=== PATIENT | male | born 1945 | race Caucasian/White ===

== ENCOUNTER 2020-11-27 08:34 | Day surgery (SDC) | payer MEDICARE, BC ==
[2020-11-27] MEDS ORDERED: Lactated Ringers 1,000 ML IV ONE (08:53)
[2020-11-27] MEDS ORDERED: ROBINUL ONE (09:25)
[2020-11-27] MEDS ORDERED: DIPRIVAN 200 MG/20 ML IV ONE ×3 (09:25→11:20)
[2020-11-27] MEDS ORDERED: BETADINE 5% OPHTHALMIC 30 ML OP ONE (09:30)
[2020-11-27] MEDS ORDERED: Lactated Ringers 1,000 ML IV SCH (09:30)
[2020-11-27] MEDS ORDERED: Ak-Dilate OPHTHALMIC*** 1.065 ML, Cyclogyl 1% OPHTH SOL 5 ML 1.065 ML, GATIFLOXACIN 0.5... OP ONE ×4 (09:30)
[2020-11-27] MEDS ORDERED: TETRACAINE 0.5% STERI-UNIT SOL OP ONE ×2 (09:30)
[2020-11-27] MEDS ORDERED: cefUROXime sodium 0.005 GM in Sodium Chloride Flush 30 ML*** 0.5 ML IJ SCH (09:30)
[2020-11-27] MEDS ORDERED: NON-FORMULARY ITEM OP ONE (09:30)
[2020-11-27] MEDS ORDERED: ACETAZOLAMIDE 250 MG TABLET PO ONE ×2 (10:30→13:15)
[2020-11-27] MEDS ORDERED: Zofran 4 MG/2 ML VIAL IV PRN ×2 (10:30→13:15)
[2020-11-27] MEDS ORDERED: LIDOCAINE HCL 1% 50 MG/5 ML VL PF IJ ONE (11:00)
[2020-11-27] MEDS ORDERED: Epinephrine Preservative Free 1 MG/ML INTRAOP ONE (11:00)
[2020-11-27 11:40] VITALS: BP 127/79; PULSE 95; O2SAT 96
== END 2020-11-27 11:53 | disposition home or self-care (01) ==
LOC: SDC 08:34
PROVIDERS: ATTEND Ophthalmology
DX: H25.811 Combined forms of age-related cataract, right eye (principal); I10 Essential (primary) hypertension; E78.00 Pure hypercholesterolemia, unspecified; Z79.899 Other long term (current) drug therapy
CPT/HCPCS: 66982; 99100; C1780; J0171; J2001; J2704; A9270-GY

== ENCOUNTER 2021-01-01 06:51 | Day surgery (SDC) | payer MEDICARE, BC ==
[~2021-01-01 06:51] MED LIST: Lactated Ringers 1,000 ML IV ONE
[2021-01-01] MEDS ORDERED: NON-FORMULARY ITEM OP ONE (07:00)
[2021-01-01] MEDS ORDERED: BETADINE 5% OPHTHALMIC 30 ML OP ONE (07:00)
[2021-01-01] MEDS ORDERED: Lactated Ringers 1,000 ML IV SCH (07:00)
[2021-01-01] MEDS ORDERED: Ak-Dilate OPHTHALMIC*** 1.065 ML, Cyclogyl 1% OPHTH SOL 5 ML 1.065 ML, GATIFLOXACIN 0.5... OP ONE ×4 (07:00)
[2021-01-01] MEDS ORDERED: TETRACAINE 0.5% STERI-UNIT SOL OP ONE ×2 (07:00)
[2021-01-01] MEDS ORDERED: cefUROXime sodium 0.005 GM in Sodium Chloride Flush 30 ML*** 0.5 ML IJ SCH (07:00)
[2021-01-01] MEDS ORDERED: Zofran 4 MG/2 ML VIAL IV PRN (09:00)
[2021-01-01] MEDS ORDERED: ACETAZOLAMIDE 250 MG TABLET PO ONE (09:00)
[2021-01-01] MEDS ORDERED: DIPRIVAN 200 MG/20 ML IV ONE ×2 (09:03→09:32)
[2021-01-01] MEDS ORDERED: Epinephrine Preservative Free 1 MG/ML INTRAOP ONE (10:00)
[2021-01-01] MEDS ORDERED: LIDOCAINE HCL 1% 50 MG/5 ML VL PF IJ ONE (10:00)
[2021-01-01 10:34] VITALS: O2SAT 95
[2021-01-01 10:36] VITALS: BP 119/74; PULSE 73
== END 2021-01-01 10:35 | disposition home or self-care (01) ==
LOC: SDC 06:51
PROVIDERS: ATTEND Ophthalmology
DX: H25.812 Combined forms of age-related cataract, left eye (principal)
CPT/HCPCS: 66982; 99100; C1780; J0171; J2001; J2704; A9270-GY

== ENCOUNTER 2021-04-06 09:31 | Inpatient (IN) | payer MEDICARE, BC ==
[2021-04-06] MEDS ORDERED: solu-MEDROL 125 MG, Sterile H2O 10 ml 2 ML IV ONE ×2 (09:45)
[2021-04-06] MEDS ORDERED: Sodium Chloride 0.9% 1000 ML 1,000 ML IV STA (09:45)
--- NOTE | 2021-04-06 09:45 | ERPHSYRPT ---
- History of Present Illness Time Seen by Provider: 04/06/21 09:40 Source: patient Exam Limitations: no limitations Physician History: Patient is a 75-year-old white male who contacted Sp approximately a week or two ago at that time he began to feel worse and by the was having symptoms of fatigue cough shortness of breath unable to take a deep breath. He d enies any fever chills or sweats he has lost his sense of taste and smell. Is that he is concerned that this is Covid he went to [facility] and was found to have an O2 sat on room air in the 80s and was sent to the ER. Timing/Duration: day(s) (10), worse Cough Quality/Degree: productive cough Possible Cause: no prior episodes Modifying Factors: Improves With: activity, coughing, deep breath, exertion Allergies/Adverse Reactions: No Known Drug Allergies Allergy (Verified 01/01/21 07:12) Home Medications: Tamsulosin HCl 0.4 mg [Flomax 0.4 MG] 0.4 mg PO HS 10/22/20 [History] Valsartan/Hydrochlorothiazide [Valsartan-Hctz 160-25 mg Tab] 25 mg PO DAILY 10/22/20 [History] Simvastatin 20Mg [Zocor 20Mg] 20 mg PO DAILY 01/01/21 [History] - Review of Systems Constitutional: Fatigue, Lethargy, Malaise Eyes: No Symptoms Ears, Nose, & Throat: Nose Congestion Respiratory: Cough, Dyspnea, Dyspnea on Exertion (NICE) Cardiac: No Chest Pain, No Edema, No Syncope Abdominal/Gastrointestinal: No Symptoms Musculoskeletal: Arthralgias, Joint Pain, Myalgias Skin: No Symptoms Neurological: Headache Psychological: No Symptoms Endocrine: No Symptoms Hematologic/Lymphatic: No Symptoms Immunological/Allergic: No Symptoms - Past Medical History Pertinent Past Medical History: Yes Neurological History: No Pertinent History ENT History: Cataracts Cardiac History: Hypertension Respiratory History: No Pertinent History Endocrine Medical History: No Pertinent History Musculoskeletal History: No Pertinent History GI Medical History: No Pertinent History History: No Pertinent History Psycho-Social History: No Pertinent History Male Reproductive Disorders: Other Other Medical History: decreased urinary flow - Past Surgical History Past Surgical History: Yes Neuro Surgical History: No Pertinent History Cardiac: No Pertinent History Respiratory: No Pertinent History Gastrointestinal: Appendectomy Genitourinary: No Pertinent History Musculoskeletal: Orthopedic Surgery Male Surgical History: No Pertinent History Other Surgical History: Rot. cuff repair left shoulder 2012, cataract removal w/lens implant to right eye November 2020 - Social History Smoking Status: Never smoker Exposure to second hand smoke: No Drug Use: none - Nursing Vital Signs Nursing Vital Signs: Initial Vital Signs Temperature 97.4 F 04/06/21 09:44 Pulse Rate 77 04/06/21 09:44 Respiratory Rate 24 04/06/21 09:44 Blood Pressure 140/72 04/06/21 09:44 O2 Sat by Pulse Oximetry 88 L 04/06/21 09:44 Pain Scale Pain Intensity 4 - Physical Exam General Appearance: mild distress Eye Exam: PERRL/EOMI, eyes nml inspection Ears, Nose, Throat Exam: normal ENT inspection, TMs normal, pharynx normal, moist mucous membranes Neck Exam: normal inspection, non-tender, supple, full range of motion Respiratory Exam: respiratory distress (Mild), diminished breath sounds, crackles/rales, wheezing Cardiovascular Exam: regular rate/rhythm, normal heart sounds, normal peripheral pulses Gastrointestinal/Abdomen Exam: soft, No tenderness Extremity Exam: normal inspection, normal range of motion Neurologic Exam: alert, oriented x 3, cooperative, normal mood/affect, sensation nml, No motor deficits Skin Exam: normal color, warm, dry, No rash SpO2 Interpretation: hypoxic, O2 applied O2 Delivery: Nasal Cannula (2 L) - Course Nursing assessment & vital signs reviewed: Yes EKG Interpreted by Me: RATE (76), NORMAL AXIS, NORMAL INTERVALS, NORMAL QRS, NORMAL ST-T - Radiology Exams Chest X-ray Interpretation: Interpreted by me (X-ray shows diffuse bilateral infiltrates) Ordered Tests: Active Orders 24 hr Category Date Time Status Steam Shovel Runner STAT Care 04/06/21 09:47 Active EKG-ER Only STAT Care 04/06/21 09:45 Active IV Insertion STAT Care 04/06/21 09:45 Active CHEST 1 VIEW (PORTABLE) Stat Exams 04/06/21 09:46 Taken BLOOD CULTURE Stat Lab 04/06/21 10:20 Received CBC W DIFF Stat Lab 04/06/21 10:15 Completed CMP Stat Lab 04/06/21 10:15 Completed D-DIMER QUANTITATIVE Stat Lab 04/06/21 10:15 Completed INFLUENZA A+B JEANIE Stat Lab 04/06/21 10:15 Completed Lactic Acid Stat Lab 04/06/21 09:45 Completed MAGNESIUM Stat Lab 04/06/21 10:15 Completed Manual Differential NC Stat Lab 04/06/21 10:15 Completed NT PRO BNP Stat Lab 04/06/21 10:15 Completed PROTIME WITH INR Stat Lab 04/06/21 10:15 Completed TROPONIN Q3H Lab 04/06/21 10:15 Completed TROPONIN Q3H Lab 04/06/21 13:00 Ordered TROPONIN Q3H Lab 04/06/21 16:00 Ordered TROPONIN Q3H Lab 04/06/21 19:00 Ordered TROPONIN Q3H Lab 04/06/21 22:00 Ordered UA W/RFX UR CULTURE Stat Lab 04/06/21 09:46 Ordered Medication Summary Discontinued Medications Generic Name Dose Route Start Last Admin Trade Name Freq PRN Reason Stop Dose Admin Methylprednisolone Sodium 0 mg 04/06/21 09:45 04/06/21 10:04 Succinate 125 mg/ Sterile IV 04/06/21 09:46 125 mg Water 2 ml STAT ONE Administration Sodium Chloride 1,000 mls @ 999 mls/hr 04/06/21 09:45 04/06/21 10:04 Sodium Chloride 0.9% 1000 Ml IV 04/06/21 10:45 999 mls/hr .Q1H1M STA Administration Sodium Chloride Confirm 04/06/21 10:01 Sodium Chloride 0.9% 1000 Ml Administered 04/06/21 10:02 Dose 1,000 mls @ ud .ROUTE .STK-MED ONE Methylprednisolone Sodium Succinate Confirm 04/06/21 10:00 Solu-Medrol Administered 04/06/21 10:01 Dose 125 mg .ROUTE .STK-MED ONE Sterile Water Confirm 04/06/21 10:00 Sterile H2o 10 Ml Administered 04/06/21 10:01 Dose 10 ml IJ .STK-MED ONE Lab/Rad Data: Laboratory Result Diagrams 04/06/21 10:15 04/06/21 10:15 Laboratory Results 04/06/21 04/06/21 04/06/21 Range/Units 10:15 10:15 10:15 WBC (4.0-10.5) K/mm3 RBC (4.1-5.6) M/mm3 Hgb (12.5-18.0) gm/dl Hct (42-50) % MCV (78-100) fl MCH (26-32) pg MCHC (32-36) g/dl RDW (11.5-14.0) % Plt Count (150-450) K/mm3 MPV (7.5-11.0) fl PT 13.5 H (9.4-12.5) SECONDS INR 1.14 (0.8-3.0) D-Dimer 660 H* (215-500) ng/mL Sodium (137-145) mmol/L Potassium (3.5-5.1) mmol/L Chloride (98-107) mmol/L Carbon Dioxide (22-30) mmol/L Anion Gap (5-15) MEQ/L BUN (9-20) mg/dL Creatinine (0.66-1.25) mg/dL Estimated GFR ML/MIN Glucose (74-106) mg/dL Lactic Acid (0.4-2.0) Calcium (8.4-10.2) mg/dL Magnesium (1.6-2.3) mg/dL Total Bilirubin (0.2-1.3) mg/dL AST (17-59) U/L ALT (0-50) U/L Alkaline Phosphatase (38-126) U/L Troponin I < 0.012 (0.000-0.034) ng/mL NT-Pro-B Natriuret Pep (0-900) pg/mL Serum Total Protein (6.3-8.2) g/dL Albumin (3.5-5.0) g/dL Influenza Type A Ag (NEGATIVE) Influenza Type B Ag (NEGATIVE) SARS-CoV-2 (PCR) POSITIVE A (NEGATIVE) 04/06/21 04/06/21 04/06/21 Range/Units 10:15 10:15 10:15 WBC 8.0 (4.0-10.5) K/mm3 RBC 4.96 (4.1-5.6) M/mm3 Hgb 14.4 (12.5-18.0) gm/dl Hct 43.7 (42-50) % MCV 88.1 (78-100) fl MCH 29.0 (26-32) pg MCHC 33.0 (32-36) g/dl RDW 13.9 (11.5-14.0) % Plt Count 215 (150-450) K/mm3 MPV 10.2 (7.5-11.0) fl PT (9.4-12.5) SECONDS INR (0.8-3.0) D-Dimer (215-500) ng/mL Sodium 143 (137-145) mmol/L Potassium 3.6 (3.5-5.1) mmol/L Chloride 105 (98-107) mmol/L Carbon Dioxide 27 (22-30) mmol/L Anion Gap 14.5 (5-15) MEQ/L BUN 41 H (9-20) mg/dL Creatinine 1.53 H (0.66-1.25) mg/dL Estimated GFR 47.7 ML/MIN Glucose 122 H (74-106) mg/dL Lactic Acid (0.4-2.0) Calcium 9.2 (8.4-10.2) mg/dL Magnesium 2.5 H (1.6-2.3) mg/dL Total Bilirubin 0.70 (0.2-1.3) mg/dL AST 87 H (17-59) U/L ALT 44 (0-50) U/L Alkaline Phosphatase 74 (38-126) U/L Troponin I (0.000-0.034) ng/mL NT-Pro-B Natriuret Pep 88.4 (0-900) pg/mL Serum Total Protein 6.7 (6.3-8.2) g/dL Albumin 3.7 (3.5-5.0) g/dL Influenza Type A Ag NEGATIVE (NEGATIVE) Influenza Type B Ag NEGATIVE (NEGATIVE) SARS-CoV-2 (PCR) (NEGATIVE) 04/06/21 Range/Units 09:45 WBC (4.0-10.5) K/mm3 RBC (4.1-5.6) M/mm3 Hgb (12.5-18.0) gm/dl Hct (42-50) % MCV (78-100) fl MCH (26-32) pg MCHC (32-36) g/dl RDW (11.5-14.0) % Plt Count (150-450) K/mm3 MPV (7.5-11.0) fl PT (9.4-12.5) SECONDS INR (0.8-3.0) D-Dimer (215-500) ng/mL Sodium (137-145) mmol/L Potassium (3.5-5.1) mmol/L Chloride (98-107) mmol/L Carbon Dioxide (22-30) mmol/L Anion Gap (5-15) MEQ/L BUN (9-20) mg/dL Creatinine (0.66-1.25) mg/dL Estimated GFR ML/MIN Glucose (74-106) mg/dL Lactic Acid 1.2 (0.4-2.0) Calcium (8.4-10.2) mg/dL Magnesium (1.6-2.3) mg/dL Total Bilirubin (0.2-1.3) mg/dL AST (17-59) U/L ALT (0-50) U/L Alkaline Phosphatase (38-126) U/L Troponin I (0.000-0.034) ng/mL NT-Pro-B Natriuret Pep (0-900) pg/mL Serum Total Protein (6.3-8.2) g/dL Albumin (3.5-5.0) g/dL Influenza Type A Ag (NEGATIVE) Influenza Type B Ag (NEGATIVE) SARS-CoV-2 (PCR) (NEGATIVE) - Progress Progress: unchanged Air Movement: fair Blood Culture(s) Obtained: Yes Antibiotics given: No Discussed with : Other (Kelly) Will see patient in: hospital (full admit) - Departure Departure Disposition: In-patient Admission Clinical Impression: COVID-19 Condition: Serious Critical Care Time: No Referrals: TANGELA FOY [Primary Care Provider] -
[2021-04-06] MEDS ORDERED: solu-MEDROL ONE (10:00)
[2021-04-06] MEDS ORDERED: Sterile H2O 10 ml IJ ONE (10:00)
[2021-04-06] MEDS ORDERED: Sodium Chloride 0.9% 1000 ML 1,000 ML ONE (10:01)
[2021-04-06 10:36] LABS: Hematocrit 43.7 % (42-50); Hemoglobin 14.4 gm/dl (12.5-18.0); Mean Cell Volume 88.1 fl (78-100); Mean Platelet Volume 10.2 fl (7.5-11.0); Platelet Count 215 K/mm3 (150-450); Red Blood Count 4.96 M/mm3 (4.1-5.6); Red Cell Distribution Width 13.9 % (11.5-14.0)
[2021-04-06 10:39] LABS: INR 1.14 (0.8-3.0); PROTIME 13.5 SECONDS (9.4-12.5)
[2021-04-06 10:52] LABS: ALBUMIN 3.7 g/dL (3.5-5.0); ANION GAP 14.5 MEQ/L (5-15); BILIRUBIN,TOTAL 0.7 mg/dL (0.2-1.3); Calcium 9.2 mg/dL (8.4-10.2); Creatinine 1 1.53 mg/dL (0.66-1.25); EST GLOMERULAR FILTRATION RATE 47.7 ML/MIN; MAGNESIUM 2.5 mg/dL (1.6-2.3); NT PRO BNP 88.4 pg/mL (0-900); Potassium 3.6 mmol/L (3.5-5.1); Total Protein 6.7 g/dL (6.3-8.2)
[2021-04-06 10:58] LABS: INFLUENZA A NEGATIVE (NEGATIVE); INFLUENZA B NEGATIVE (NEGATIVE)
[2021-04-06 13:39] LABS: BAND 2 % (0.0-2.0); Lymphocytes 9 % (24-44); Monocyte 3 % (0.0-12.0); Neutrophils 86 % (36.-66.); Platelet Estimate NORMAL (NORMAL); Total Cells Counted 100
[2021-04-06 14:37] LABS: Appearance CLEAR (CLEAR); Bilirubin NEGATIVE (NEGATIVE); Blood MODERATE Ery/ul (0-5); Glucose NEGATIVE (NEGATIVE); Ketones NEGATIVE (NEGATIVE); Leukocyte Esterase NEGATIVE (NEGATIVE); Mucus SLIGHT /HPF (NEGATIVE); Nitrite NEGATIVE (NEGATIVE); Protein,Urine Dip 100 (Negative); Specific Gravity 1.021 (1.005-1.025); Urobilinogen 2 mg/dL (0-1); WBC 0-2 /HPF (0-5)
[2021-04-06] MEDS ORDERED: Sodium Chloride 0.9% 1000 ML 1,000 ML IV SCH (15:15)
[2021-04-06] MEDS ORDERED: REMDESIVIR 200 MG in Sodium Chloride 0.9% 250 ML 250 ML IV ONE (17:00)
[2021-04-06] MEDS: ENOXAPARIN SODIUM SQ SCH (17:06)
[2021-04-06] MEDS: DIOVAN 80 MG PO SCH (17:08)
--- NOTE | 2021-04-06 19:10 | XRAY ---
Indication: Suspect Covid 19. Comparison: None Portable chest demonstrates diffuse bilateral patchy airspace disease without consolidation/large effusion. Heart not enlarged. Bony thorax intact.
[2021-04-06] MEDS ORDERED: NAPROSYN 375 MG PO SCH (22:00)
[2021-04-06] MEDS ORDERED: NON-FORMULARY ITEM (Naproxen Sodium [Aleve] 220 MG) PO SCH (22:00)
[2021-04-06] MEDS: Flomax 0.4 MG PO SCH (22:26)
[2021-04-06] MEDS: Decadron 4 MG INJ IV SCH (22:26)
[2021-04-06] MEDS: Ativan 1 MG PO PRN (22:26)
[2021-04-06] MEDS: Naprosyn 500 MG PO SCH (22:27)
[2021-04-07] MEDS: Naprosyn 500 MG PO SCH ×2 (09:13→21:24)
[2021-04-07] MEDS: Decadron 4 MG INJ IV SCH ×2 (09:14→21:24)
[2021-04-07] MEDS: ZOCOR 20MG PO SCH (09:14)
[2021-04-07] MEDS: hydroDIURIL 25 MG PO SCH (09:14)
[2021-04-07] MEDS: DIOVAN 80 MG PO SCH (09:14)
[2021-04-07 09:29] LABS: Hematocrit 43.1 % (42-50); Hemoglobin 14.3 gm/dl (12.5-18.0); Mean Cell Volume 87.8 fl (78-100); Mean Corpuscular Hemoglobin 29.1 pg (26-32); Mean Corpuscular Hgb Concent. 33.2 g/dl (32-36); Mean Platelet Volume 10.3 fl (7.5-11.0); Platelet Count 244 K/mm3 (150-450); Red Blood Count 4.91 M/mm3 (4.1-5.6); Red Cell Distribution Width 13.7 % (11.5-14.0); White Blood Count 6.8 K/mm3 (4.0-10.5)
[2021-04-07 09:33] LABS: ALBUMIN 3.4 g/dL (3.5-5.0); ANION GAP 14.2 MEQ/L (5-15); BILIRUBIN,TOTAL 0.5 mg/dL (0.2-1.3); Calcium 8.7 mg/dL (8.4-10.2); Creatinine 1 1.42 mg/dL (0.66-1.25); EST GLOMERULAR FILTRATION RATE 51.9 ML/MIN; Potassium 3.6 mmol/L (3.5-5.1); Total Protein 6.3 g/dL (6.3-8.2)
[2021-04-07] MEDS ORDERED: VALSARTAN PO SCH (10:00)
[2021-04-07] MEDS ORDERED: HYDROCHLOROTHIAZIDE PO SCH (10:00)
[2021-04-07] MEDS ORDERED: Sodium Chloride 0.9% 10 ML FLUSH Syringe IV PRN (11:45)
[2021-04-07 14:31] LABS: BAND 3 % (0.0-2.0); Lymphocytes 10 % (24-44); Monocyte 1 % (0.0-12.0); Neutrophils 86 % (36.-66.); Platelet Estimate NORMAL (NORMAL); Total Cells Counted 100; Toxic Granulation 1+
[2021-04-07] MEDS: Sodium Chloride 0.9% 10 ML FLUSH Syringe IV SCH ×2 (14:36→21:25)
[2021-04-07] MEDS ORDERED: REMDESIVIR 100 MG in Sodium Chloride 0.9% 100 ML BAG 100 ML IV SCH (15:00)
[2021-04-07] MEDS: ENOXAPARIN SODIUM SQ SCH (15:00)
[2021-04-07] MEDS: Ativan 1 MG PO PRN (21:24)
[2021-04-07] MEDS: Flomax 0.4 MG PO SCH (21:24)
[2021-04-08 06:33] LABS: ALBUMIN 3.3 g/dL (3.5-5.0); ANION GAP 12.1 MEQ/L (5-15); BILIRUBIN,TOTAL 0.4 mg/dL (0.2-1.3); Creatinine 1 1.33 mg/dL (0.66-1.25); Potassium 3.8 mmol/L (3.5-5.1); Total Protein 6.1 g/dL (6.3-8.2)
[2021-04-08 06:34] LABS: Hematocrit 43.2 % (42-50); Hemoglobin 13.9 gm/dl (12.5-18.0); Mean Cell Volume 89.6 fl (78-100); Mean Corpuscular Hemoglobin 28.8 pg (26-32); Mean Corpuscular Hgb Concent. 32.2 g/dl (32-36); Mean Platelet Volume 10.5 fl (7.5-11.0); Platelet Count 285 K/mm3 (150-450); Red Blood Count 4.82 M/mm3 (4.1-5.6); Red Cell Distribution Width 13.8 % (11.5-14.0)
[2021-04-08] MEDS: Sodium Chloride 0.9% 10 ML FLUSH Syringe IV SCH (06:55)
[2021-04-08 08:38] LABS: BAND 8 % (0.0-2.0); Lymphocytes 5 % (24-44); Monocyte 5 % (0.0-12.0); Neutrophils 82 % (36.-66.); Platelet Estimate NORMAL (NORMAL); Total Cells Counted 100
[2021-04-08] MEDS: hydroDIURIL 25 MG PO SCH (10:15)
[2021-04-08] MEDS: ZOCOR 20MG PO SCH (10:15)
[2021-04-08] MEDS: Decadron 4 MG INJ IV SCH (10:15)
[2021-04-08] MEDS: DIOVAN 80 MG PO SCH (10:15)
[2021-04-08] MEDS: Naprosyn 500 MG PO SCH (10:16)
--- NOTE | 2021-04-08 11:51 | HP ---
CHIEF COMPLAINT: Weakness, shortness of breath. HISTORY OF PRESENT ILLNESS: The patient is a 75 year-old white male whose tested positive for COVID approximately seven days ago. In the last three days he has become more and more weak, short of breath, occasional cough, lightheaded, unable to smell, pain with taking a deep breath. No fever or sweats. He was tested and was positive for COVID and also his O2 saturation was only 80% in the doctor's office and he was sent to the emergency room. MEDICATIONS: Flomax 0.4, losartan 160/25 q.d., Zocor 20 q.d., ALLERGIES: NKDA. PAST MEDICAL HISTORY: Benign prostatic hypertrophy, hypertension, hyperlipidemia. No cardiac history. PAST SURGICAL HISTORY: Cataracts. He has had some orthopedic surgery with rotator cuff tear left shoulder. REVIEW OF SYSTEMS: CONSTITUTIONAL: Fatigue, weakness, malaise. HEENT: Stopped up nose. RESPIRATORY: He has a dry cough, short of breath on exertion, hypoxia at rest. No chest pain. ABDOMEN: No nausea or vomiting. MUSCULOSKELETAL: Aches all over. SOCIAL HISTORY: The patient is retired after he worked for the [employer] for years. and has two sons. PHYSICAL EXAMINATION: The patient is a younger than normal appearing 75 year-old white male looks strong and in no distress. He is sitting with two liters of oxygen on. VITAL SIGNS: Temperature 97F, pulse 77, respirations 20, blood pressure 130/60. O2 saturation presently 100 on 2 liters. HEENT: Dry mucosal membranes. Sclera clear. CHEST: Clear. CVS: No murmurs or gallops. ABDOMEN: Soft. No masses or organomegaly. EXTREMITIES: No edema. No cyanosis. Sensation seems normal. LAB DATA AND TESTS: EKG and chest x-ray looks normal. His troponin is normal. The D-dimer is minimally elevated. IMPRESSION: 1) COVID. 2) COVID pneumonia. PLAN: The patient will be treated with IV fluids, Remdesivir, Decadron, Lovenox, oxygen. PROGNOSIS: [place] to be good.
[2021-04-08 12:58] VITALS: BP 145/75; PULSE 75; O2SAT 93
== END 2021-04-08 15:43 | disposition home or self-care (01) | DRG 177 ==
LOC: ED 09:31 → MED SURG 14:20 → ED 14:21
PROVIDERS: ADMIT Family Medicine; ATTEND Family Medicine
DX: U07.1 COVID-19 (principal); J12.82 Pneumonia due to coronavirus disease 2019; R53.1 Weakness; Z20.828 Contact with and (suspected) exposure to other viral communicable diseases; R42 Dizziness and giddiness; R43.9 Unspecified disturbances of smell and taste
CPT/HCPCS: 36000; 36415; 71045; 80053; 81001; 83605; 83735; 83880; 84484; 85025; 85379; 85610; 87040; 87086; 87400; 93005; 93041; 94762; 96360; 96374; 99285; U0003; J1100; J1650; J2930; A9270-GY

== ENCOUNTER 2023-08-30 10:40 | Observation (INO) | payer MEDICARE, BC ==
[2023-08-30] MEDS ORDERED: Sodium Chloride 0.9% 1000 ML 1,000 ML IV STA (11:08)
--- NOTE | 2023-08-30 11:14 | ERPHSYRPT ---
- History of Present Illness Time Seen by Provider: 08/30/23 11:10 Source: patient, family Exam Limitations: no limitations Patient Subjective Stated Complaint: Weakness Triage Nursing Assessment: ... 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 The patient is brought by his this morning because he felt dizzy almost passed out, when his had to hold him and prevent him from falling down. The patient states that he stood up, felt dizzy, room spinning and almost passed out. No symptoms prior to the dizziness, no headache, no visual changes, no chest pain, no shortness of breath, no abdominal pain, no nausea or vomiting. The patient has been taking Aleve 2 tablets twice a day for a period of time for his shoulder pain. He also takes omeprazole for history of peptic ulcer disease. He does not recall having any EGDs or colonoscopies in the past. He is denying any bleeding per rectum, no black stool. He is denying any urinary symptoms. No fever or chills. Allergies/Adverse Reactions: No Known Drug Allergies Allergy (Verified 08/30/23 10:47) Home Medications: Tamsulosin HCl 0.4 mg [Flomax 0.4 MG] 0.4 mg PO HS 10/22/20 [History] Valsartan/Hydrochlorothiazide [Valsartan-Hctz 160-25 mg Tab] 1 tab PO DAILY 10/22/20 [History] Simvastatin 20Mg [Zocor 20Mg] 20 mg PO DAILY 01/01/21 [History] Naproxen Sodium [Aleve] 220 mg PO BID 04/06/21 [History] Hx Tetanus, Diphtheria Vaccination/Date Given: No Hx Influenza Vaccination/Date Given: Yes Hx Pneumococcal Vaccination/Date Given: Yes Immunizations Up to Date: Yes Travel Risk - International Travel Have you traveled outside of the country in past 3 weeks: No - Coronavirus Screening Are you exhibiting any of the following symptoms?: No - Vaccine Status Have you recieved a Covid-19 vaccination: No - Past Medical History Pertinent Past Medical History: Yes Neurological History: No Pertinent History ENT History: Cataracts Cardiac History: High Cholesterol, Hypertension Respiratory History: No Pertinent History Endocrine Medical History: No Pertinent History Musculoskeletal History: No Pertinent History GI Medical History: No Pertinent History History: No Pertinent History Psycho-Social History: No Pertinent History Male Reproductive Disorders: Other Other Medical History: decreased urinary flow, enlarged prostate - Past Surgical History Past Surgical History: Yes Neuro Surgical History: No Pertinent History Cardiac: No Pertinent History Respiratory: No Pertinent History Gastrointestinal: Appendectomy Genitourinary: No Pertinent History Musculoskeletal: Orthopedic Surgery Male Surgical History: No Pertinent History Other Surgical History: Rot. cuff repair left shoulder 2012, cataract removal w/lens implant to right eye November 2020 - Social History Smoking Status: Never smoker Exposure to second hand smoke: No Drug Use: none Patient Lives Alone: No - Review of Systems Constitutional: Weakness, No Fever, No Chills Eyes: No Symptoms Ears, Nose, & Throat: No Symptoms Respiratory: No Cough, No Dyspnea Cardiac: No Chest Pain, No Edema, No Syncope Abdominal/Gastrointestinal: No Abdominal Pain, No Nausea, No Vomiting, No Diarrhea Genitourinary Symptoms: No Dysuria Musculoskeletal: Joint Pain, No Back Pain, No Neck Pain Skin: No Rash Neurological: Dizziness, No Focal Weakness, No Sensory Changes Psychological: No Symptoms Endocrine: No Symptoms All Other Systems: Reviewed and Negative Physical Exam - Nursing Vital Signs Nursing Vital Signs: Initial Vital Signs Temperature 97.2 F 08/30/23 10:49 Pulse Rate 86 08/30/23 10:49 Respiratory Rate 17 08/30/23 10:49 Blood Pressure 129/71 08/30/23 10:49 O2 Sat by Pulse Oximetry 92 L 08/30/23 10:49 Pain Scale Pain Intensity 0 - [place] Coma Scale Best Eye Response ([place]): (4) open spontaneously Best Verbal Response (Santhosh): (5) oriented Best Motor Response (Santhosh): (6) obeys commands [place] Total: 15 - Physical Exam General Appearance: no apparent distress, alert Eye Exam: bilateral eye: PERRL, EOMI Ears, Nose, Throat Exam: normal ENT inspection, pharynx normal, moist mucous membranes Neck Exam: normal inspection, non-tender, supple, full range of motion Respiratory: normal breath sounds, lungs clear, No chest tenderness, No respiratory distress Cardiovascular: regular rate/rhythm, capillary refill <2 sec, No murmur, No pulse deficit Gastrointestinal: soft, No tenderness, No distention, No mass Back Exam: normal inspection, normal range of motion, No CVA tenderness, No vertebral tenderness Extremity Exam: normal inspection, normal range of motion, pelvis stable, No tenderness Mental Status: alert, oriented x 3, cooperative strategy director Exam: normal hearing, normal speech, PERRL, No facial droop Coordination/Gait: normal finger to nose Motor/Sensory: no motor deficit, no sensory deficit, no pronator drift Skin Exam: warm, dry, pale, No rash SpO2 Interpretation: borderline oxygenation SpO2: 92 - Course EKG Interpreted by Me: RATE (76), Sinus Rhythm, NORMAL INTERVALS, NORMAL QRS, NORMAL ST-T Ordered Tests: Active Orders 24 hr Category Date Time Status Embedded Engineer STAT Care 08/30/23 11:09 Active EKG-ER Only STAT Care 08/30/23 11:08 Active IV Insertion STAT Care 08/30/23 11:08 Active Orthostatic Vital Signs STAT Care 08/30/23 11:08 Active CHEST 1 VIEW (PORTABLE) Stat Exams 08/30/23 11:09 Taken HEAD WITHOUT CONTRAST [CT] Stat Exams 08/30/23 11:09 Completed CBC W DIFF Stat Lab 08/30/23 10:54 Completed CMP Stat Lab 08/30/23 10:54 Completed Lactic Acid Stat Lab 08/30/23 11:45 Completed Lactic Acid Stat Lab 08/30/23 13:53 Received MAGNESIUM Stat Lab 08/30/23 10:54 Completed TROPONIN Q4H Lab 08/30/23 10:54 Completed TROPONIN Q4H Lab 08/30/23 15:15 Ordered TROPONIN Q4H Lab 08/30/23 19:15 Ordered Medication Summary Discontinued Medications Generic Name Dose Route Start Last Admin Trade Name Freq PRN Reason Stop Dose Admin Sodium Chloride 1,000 mls @ 999 mls/hr 08/30/23 11:08 08/30/23 12:25 Sodium Chloride 0.9% 1000 Ml IV 08/30/23 12:08 Infused .Q1H1M STA Infusion Sodium Chloride Confirm 08/30/23 11:21 Sodium Chloride 0.9% 1000 Ml Administered 08/30/23 11:22 Dose 1,000 mls @ ud .ROUTE .STK-MED ONE Pantoprazole Sodium 40 mg 08/30/23 13:08 08/30/23 13:32 Pantoprazole 40 Mg Vial IV 08/30/23 13:09 40 mg STAT ONE Administration Pantoprazole Sodium Confirm 08/30/23 13:26 Pantoprazole 40 Mg Vial Administered 08/30/23 13:27 Dose 40 mg IV .[facility] ONE Lab/Rad Data: Laboratory Result Diagrams 08/30/23 10:54 08/30/23 10:54 Laboratory Results 08/30/23 08/30/23 08/30/23 Range/Units 11:45 11:02 10:54 WBC (4.0-10.5) x10^3/uL RBC (4.1-5.6) x10^6/uL Hgb (12.5-18.0) g/dL Hct (42-50) % MCV (78-100) fL MCH (26-32) pg MCHC (32-36) g/dL RDW (11.5-14.0) % Plt Count (150-450) x10^3/uL MPV (7.5-11.0) fL Gran % (36.0-66.0) % Immature Gran % (Auto) (0.00-0.4) % Nucleat RBC Rel Count (0.00-0.1) % Eos # (Auto) (0-0.5) x10^3/uL Immature Gran # (Auto) (0.00-0.03) x10^3u/L Absolute Lymphs (auto) (1.0-4.6) x10^3/uL Absolute Monos (auto) (0.0-1.3) x10^3/uL Absolute Nucleated RBC (0.00-0.01) x10^3u/L Lymphocytes % (24.0-44.0) % Monocytes % (0.0-12.0) % Eosinophils % (0.00-5.0) % Basophils % (0.0-0.4) % Absolute Granulocytes (1.4-6.9) x10^3/uL Basophils # (0-0.4) x10^3/uL Sodium (137-145) mmol/L Potassium (3.5-5.1) mmol/L Chloride (98-107) mmol/L Carbon Dioxide (22-30) mmol/L Anion Gap (5-15) MEQ/L BUN (9-20) mg/dL Creatinine (0.66-1.25) mg/dL Estimated GFR ML/MIN Glucose (74-106) mg/dL Lactic Acid 1.9 (0.4-2.0) Calcium (8.4-10.2) mg/dL Magnesium (1.6-2.3) mg/dL Total Bilirubin (0.2-1.3) mg/dL AST (17-59) U/L ALT (0-50) U/L Alkaline Phosphatase (38-126) U/L Troponin I < 0.012 (0.000-0.034) ng/mL Serum Total Protein (6.3-8.2) g/dL Albumin (3.5-5.0) g/dL Slides for Path Review ABO Group O Rh Factor NEGATIVE Antibody Screen NEGATIVE (NEGATIVE) 08/30/23 08/30/23 Range/Units 10:54 10:54 WBC 7.9 (4.0-10.5) x10^3/uL RBC 4.73 (4.1-5.6) x10^6/uL Hgb 7.7 L (12.5-18.0) g/dL Hct 29.5 L (42-50) % MCV 62.4 L (78-100) fL MCH 16.3 L (26-32) pg MCHC 26.1 L (32-36) g/dL RDW 19.1 H (11.5-14.0) % Plt Count 464 H (150-450) x10^3/uL MPV 10.8 (7.5-11.0) fL Gran % 73.3 H (36.0-66.0) % Immature Gran % (Auto) 0.5 H (0.00-0.4) % Nucleat RBC Rel Count 0.0 (0.00-0.1) % Eos # (Auto) 0.18 (0-0.5) x10^3/uL Immature Gran # (Auto) 0.04 H (0.00-0.03) x10^3u/L Absolute Lymphs (auto) 1.11 (1.0-4.6) x10^3/uL Absolute Monos (auto) 0.69 (0.0-1.3) x10^3/uL Absolute Nucleated RBC 0.00 (0.00-0.01) x10^3u/L Lymphocytes % 14.1 L (24.0-44.0) % Monocytes % 8.8 (0.0-12.0) % Eosinophils % 2.3 (0.00-5.0) % Basophils % 1.0 (0.0-0.4) % Absolute Granulocytes 5.75 (1.4-6.9) x10^3/uL Basophils # 0.08 (0-0.4) x10^3/uL Sodium 138 (137-145) mmol/L Potassium 4.1 (3.5-5.1) mmol/L Chloride 104 (98-107) mmol/L Carbon Dioxide 22 (22-30) mmol/L Anion Gap 16.2 H (5-15) MEQ/L BUN 34 H (9-20) mg/dL Creatinine 1.49 H (0.66-1.25) mg/dL Estimated GFR 48.3 ML/MIN Glucose 130 H (74-106) mg/dL Lactic Acid (0.4-2.0) Calcium 10.1 (8.4-10.2) mg/dL Magnesium 2.0 (1.6-2.3) mg/dL Total Bilirubin 0.60 (0.2-1.3) mg/dL AST 34 (17-59) U/L ALT 20 (0-50) U/L Alkaline Phosphatase 64 (38-126) U/L Troponin I (0.000-0.034) ng/mL Serum Total Protein 7.5 (6.3-8.2) g/dL Albumin 4.5 (3.5-5.0) g/dL Slides for Path Review YES ABO Group Rh Factor Antibody Screen (NEGATIVE) - Progress Progress Note: 78 years old male with past medical history of hypertension, benign prostatic hypertrophy, 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 The patient is presenting to the emergency room accompanied by his because of a chief complaint of dizziness when he stood up this morning and almost passed out. The patient takes Aleve 2 tablets twice a day for a long. Of time for his shoulder pain. He never had an EGD or colonoscopy done in the past. At present he denies any complaint except for the lightheadedness. Emergency room course and medical decision making. On arrival the patient had an EKG done which revealed sinus rhythm at rate of [address] segment elevation or depression. Most probably his dizziness is secondary to a GI bleed the patient looks pale. Will check fecal occult blood, CBC, CMP, troponin, UA, portable chest x-ray and a CT scan of the brain without contrast. 1300 PM The patient is a stable as symptomatic laying down in bed. The patient's workup revealed a low hemoglobin of 7.7, his last hemoglobin from 2020 was at 14.7. White count 7.9, lactic acid normal at 1.9. Normal troponin less than 0.012. BUN 34, creatinine 1.5 and glucose 130. Sodium 138, potassium 4.1. CT scan of the brain revealed no acute findings. The plan is to admit the patient to the hospital as a case of dizziness ost probably secondary to GI bleed most probably secondary to Peptic ulcer, scondary to nonsteroidals. The patient will be given IV protonix. The hospitalist has been paged. 08/30/23 13:10The case is discussed with the on-call physician/hospitalist Dr Wills, the patient will be admitted to the hospital as a case of Dizziness Anemia Upper GI bleed secondary to gastritis Medical Desision Making - Discussion of managment Care discussed with:: hospitalist Reviewed:: Test results Agreed on:: Treatment plan, decision to admit Will see patient: in hospital - Departure Departure Disposition: In-patient Admission Clinical Impression: Dizziness, Anemia, Upper gastrointestinal hemorrhage due to gastritis Condition: Stable Critical Care Time: No Referrals: TANGELA FOY SOFTWARE INTERN [Primary Care Provider] - Follow up/PCP as directed
[2023-08-30] MEDS ORDERED: Sodium Chloride 0.9% 1000 ML 1,000 ML ONE (11:21)
[2023-08-30 11:31] LABS: ALBUMIN 4.5 g/dL (3.5-5.0); ANION GAP 16.2 MEQ/L (5-15); BILIRUBIN,TOTAL 0.6 mg/dL (0.2-1.3); Calcium 10.1 mg/dL (8.4-10.2); Creatinine 1 1.49 mg/dL (0.66-1.25); EST GLOMERULAR FILTRATION RATE 48.3 ML/MIN; Potassium 4.1 mmol/L (3.5-5.1); Total Protein 7.5 g/dL (6.3-8.2)
[2023-08-30 11:32] LABS: Absolute Neutrophil Ct (ANC) 5.75 x10^3/uL (1.4-6.9); Basophil (Absolute #) 0.08 x10^3/uL (0-0.4); Eosinophil % 2.3 % (0.00-5.0); Eosinophil (Absolute #) 0.18 x10^3/uL (0-0.5); Hematocrit 29.5 % (42-50); Hemoglobin 7.7 g/dL (12.5-18.0); IMMATURE GRAN # 0.04 x10^3u/L (0.00-0.03); IMMATURE GRAN % 0.5 % (0.00-0.4); Lymphocyte (Absolute #) 1.11 x10^3/uL (1.0-4.6); Lymphocytes % 14.1 % (24.0-44.0); Mean Cell Volume 62.4 fL (78-100); Mean Corpuscular Hemoglobin 16.3 pg (26-32); Mean Corpuscular Hgb Concent. 26.1 g/dL (32-36); Mean Platelet Volume 10.8 fL (7.5-11.0); Monocyte (Absolute #) 0.69 x10^3/uL (0.0-1.3); Monocytes % 8.8 % (0.0-12.0); Neutrophil % 73.3 % (36.0-66.0); Platelet Count 464 x10^3/uL (150-450); Red Blood Count 4.73 x10^6/uL (4.1-5.6); Red Cell Distribution Width 19.1 % (11.5-14.0); White Blood Count 7.9 x10^3/uL (4.0-10.5)
[2023-08-30 12:22] LABS: Slide Review 1 YES
--- NOTE | 2023-08-30 12:28 | XRAY ---
CLINICAL HISTORY:dizziness COMPARISON:None. TECHNIQUE:An Axial non-contrast enhanced CT scan of the brain was performed from the skull base to the high parietal region without contrast. CTDI: 53.92, DLP:948.95. FINDINGS: Age-matched central and cortical involutional brain changes as evident by prominent cortical sulci, widened basal cisterns and mild ventricular dilatation. The visualized brain parenchyma shows a normal appearance. No focal parenchymal abnormalities are demonstrated. Lawson-white matter differentiation is maintained. No midline shifts or deformity. No intracerebral or extra axial hematoma. Normal CT appearance of the posterior fossa structures namely the cerebellar hemispheres, brainstem and cerebellar peduncles. No definite calvarium fractures. Scanned paranasal sinuses are clear. Right vertebral artery atheromatous calcifications. IMPRESSION: 1. Age-matched involutional brain changes. 2. Otherwise, unremarkable non-contrast CT study for the brain. 3. No evidence of acute infarction or recent hemorrhage. Electronically Signed by: Jamison Ordonez MD. (08/30/2023 12:24:39 EST)
[2023-08-30] MEDS ORDERED: PROTONIX 40 MG IV IV ONE ×2 (13:08→13:26)
[2023-08-30 14:02] LABS: ABO TYPING O; Antibody Screen NEGATIVE (NEGATIVE); RH TYPING NEGATIVE
--- NOTE | 2023-08-30 14:52 | PCM.HP ---
History of Present Illness - Chief Complaint Chief Complaint: Dizziness/GI bleed Date: 08/30/23 History of Present Illness: is a 78 year old male with a pmhx of HTN, BPH, and DJD who presented to ED 08/30/23 after a syncopal episode at home around 9 a.m. this morning. Patient states he was in his usual state of health when he felt lightheaded after cutting his brother hair. He took a minute to sit down but when he tried to get up and go inside he passed out. He states he did lose consciousness but was quick to recover (less than one minute). When asked about his PMHX patient states he did have some cardiac issues following COVID but unsure of exact diagnosis or who his vascular surgeon is but reports his heart races. He does know he was placed on metoprolol. He takes Naproxen for pain. Denies recent weight loss, early satiety, bloating, rectal bleeding/dark stools, fever, cough, sob, cp, abdominal pain, JARVIS, N/V, or diarrhea. In ED vitals unremarkable. SPO@ noted at 92% on RA. EKG showing HR 76 NS with no acute changes, ST elevations/deviations. CT of the head with no acute findings. Lab findings remarkable for hypochromic, microcytic anemia with a hgb of 7.7. GAP at 16.2, BUN 34, creat at 1.49. Patient given Protonix and IVF bolus. I nitial troponins are wnl. Orthostatic vitals unremarkable. - Review of Systems Constitutional: No Symptoms Eyes: No Symptoms Ears, Nose, & Throat: No Symptoms Respiratory: No Symptoms Cardiac: Syncope Abdominal/Gastrointestinal: No Symptoms Genitourinary Symptoms: No Symptoms Musculoskeletal: Joint Pain Skin: No Symptoms Neurological: No Symptoms Psychological: No Symptoms Endocrine: No Symptoms Hematologic/Lymphatic: Anemia Medications & Allergies Home Medications: Home Medication List Tamsulosin HCl 0.4 mg [Flomax 0.4 MG] 0.4 mg PO HS 10/22/20 [History Confirmed 08/30/23] Valsartan/Hydrochlorothiazide [Valsartan-Hctz 160-25 mg Tab] 1 tab PO DAILY 10/22/20 [History Confirmed 08/30/23] Simvastatin 20Mg [Zocor 20Mg] 20 mg PO DAILY 01/01/21 [History Confirmed 08/30/23] Naproxen Sodium [Aleve] 220 mg PO BID 04/06/21 [History Confirmed 08/30/23] Aspirin EC 81 mg [Ecotrin 81 mg] 81 mg PO DAILY 14 Days #14 tablet 04/08/21 [Rx Confirmed 08/30/23] Allergies/Adverse Reactions: Allergies Allergy/AdvReac Type Severity Reaction Status Date / Time No Known Drug Allergies Allergy Verified 08/30/23 10:47 - Past Medical History Past Medical History: Yes Neurological History: No Pertinent History ENT History: Cataracts Cardiac History: High Cholesterol, Hypertension Respiratory History: No Pertinent History Endocrine Medical History: No Pertinent History Musculoskelatal History: No Pertinent History GI Medical History: No Pertinent History History: No Pertinent History Pyscho-Social History: No Pertinent History Male Reproductive Disorders: Other Comment: decreased urinary flow, enlarged prostate - Past Surgical History Past Surgical History: Yes Neuro Surgical History: No Pertinent History Cardiac History: No Pertinent History Respiratory Surgery: No Pertinent History GI Surgical History: Appendectomy Genitourinary Surgical Hx: No Pertinent History Musculskeletal Surgical Hx: Orthopedic Surgery Male Surgical History: No Pertinent History Other Surgical History: Rot. cuff repair left shoulder 2012, cataract removal w/lens implant to right eye November 2020 - Social History Smoking Status: Never smoker Exposure to second hand smoke: No Alcohol: None Drug Use: none - Physical Exam Vital Signs: Vital Signs - 24 hr Temp Pulse Resp BP BP Pulse Ox 08/30/23 14:14 92 L 08/30/23 12:27 85 22 135/71 93 L 08/30/23 11:30 76 17 114/64 91 L 08/30/23 11:20 88 29 H 114/64 93 L 08/30/23 10:49 97.2 F 86 17 129/71 92 L General Appearance: no apparent distress Neurologic Exam: alert, oriented x 3, cooperative Eye Exam: PERRL/EOMI Ears, Nose, Throat Exam: normal ENT inspection Neck Exam: normal inspection Respiratory Exam: normal breath sounds, lungs clear Cardiovascular Exam: regular rate/rhythm, normal heart sounds Rectal Exam: deferred Back Exam: normal inspection Extremity Exam: normal inspection Skin Exam: pale Results - Labs Lab/Micro Results: Lab Results-Last 24 Hours 08/30/23 08/30/2323 Range/Units 10:54 10:54 10:54 WBC 7.9 (4.0-10.5) x10^3/uL RBC 4.73 (4.1-5.6) x10^6/uL Hgb 7.7 L (12.5-18.0) g/dL Hct 29.5 L (42-50) % MCV 62.4 L (78-100) fL MCH 16.3 L (26-32) pg MCHC 26.1 L (32-36) g/dL RDW 19.1 H (11.5-14.0) % Plt Count 464 H (150-450) x10^3/uL MPV 10.8 (7.5-11.0) fL Gran % 73.3 H (36.0-66.0) % Immature Gran % (Auto) 0.5 H (0.00-0.4) % Nucleat RBC Rel Count 0.0 (0.00-0.1) % Eos # (Auto) 0.18 (0-0.5) x10^3/uL Immature Gran # (Auto) 0.04 H (0.00-0.03) x10^3u/L Absolute Lymphs (auto) 1.11 (1.0-4.6) x10^3/uL Absolute Monos (auto) 0.69 (0.0-1.3) x10^3/uL Absolute Nucleated RBC 0.00 (0.00-0.01) x10^3u/L Lymphocytes % 14.1 L (24.0-44.0) % Monocytes % 8.8 (0.0-12.0) % Eosinophils % 2.3 (0.00-5.0) % Basophils % 1.0 (0.0-0.4) % Absolute Granulocytes 5.75 (1.4-6.9) x10^3/uL Basophils # 0.08 (0-0.4) x10^3/uL Sodium 138 (137-145) mmol/L Potassium 4.1 (3.5-5.1) mmol/L Chloride 104 (98-107) mmol/L Carbon Dioxide 22 (22-30) mmol/L Anion Gap 16.2 H (5-15) MEQ/L BUN 34 H (9-20) mg/dL Creatinine 1.49 H (0.66-1.25) mg/dL Estimated GFR 48.3 ML/MIN Glucose 130 H (74-106) mg/dL Lactic Acid (0.4-2.0) Calcium 10.1 (8.4-10.2) mg/dL Magnesium 2.0 (1.6-2.3) mg/dL Total Bilirubin 0.60 (0.2-1.3) mg/dL AST 34 (17-59) U/L ALT 20 (0-50) U/L Alkaline Phosphatase 64 (38-126) U/L Troponin I < 0.012 (0.000-0.034) ng/mL Serum Total Protein 7.5 (6.3-8.2) g/dL Albumin 4.5 (3.5-5.0) g/dL Slides for Path Review YES ABO Group Rh Factor Antibody Screen (NEGATIVE) 08/30/23 08/30/23 Range/Units 11:02 11:45 WBC (4.0-10.5) x10^3/uL RBC (4.1-5.6) x10^6/uL Hgb (12.5-18.0) g/dL Hct (42-50) % MCV (78-100) fL MCH (26-32) pg MCHC (32-36) g/dL RDW (11.5-14.0) % Plt Count (150-450) x10^3/uL MPV (7.5-11.0) fL Gran % (36.0-66.0) % Immature Gran % (Auto) (0.00-0.4) % Nucleat RBC Rel Count (0.00-0.1) % Eos # (Auto) (0-0.5) x10^3/uL Immature Gran # (Auto) (0.00-0.03) x10^3u/L Absolute Lymphs (auto) (1.0-4.6) x10^3/uL Absolute Monos (auto) (0.0-1.3) x10^3/uL Absolute Nucleated RBC (0.00-0.01) x10^3u/L Lymphocytes % (24.0-44.0) % Monocytes % (0.0-12.0) % Eosinophils % (0.00-5.0) % Basophils % (0.0-0.4) % Absolute Granulocytes (1.4-6.9) x10^3/uL Basophils # (0-0.4) x10^3/uL Sodium (137-145) mmol/L Potassium (3.5-5.1) mmol/L Chloride (98-107) mmol/L Carbon Dioxide (22-30) mmol/L Anion Gap (5-15) MEQ/L BUN (9-20) mg/dL Creatinine (0.66-1.25) mg/dL Estimated GFR ML/MIN Glucose (74-106) mg/dL Lactic Acid 1.9 (0.4-2.0) Calcium (8.4-10.2) mg/dL Magnesium (1.6-2.3) mg/dL Total Bilirubin (0.2-1.3) mg/dL AST (17-59) U/L ALT (0-50) U/L Alkaline Phosphatase (38-126) U/L Troponin I (0.000-0.034) ng/mL Serum Total Protein (6.3-8.2) g/dL Albumin (3.5-5.0) g/dL Slides for Path Review ABO Group O Rh Factor NEGATIVE Antibody Screen NEGATIVE (NEGATIVE) - Radiology Impressions Radiology Exams & Impressions: Radiology Procedures Category Date Time Status CHEST 1 VIEW (PORTABLE) Stat Exams 08/30/23 11:09 Taken HEAD WITHOUT CONTRAST [CT] Stat Exams 08/30/23 11:09 Completed Assessment/Plan (1) Syncope and collapse Current Visit: Yes Status: Acute Assessment & Plan: -CT of the head with no acute findings/orthostatic vitals negative -Gentle hydration/monitor for fluid overload -TELE -Echo -Carotid duplex -Consider MRI/ neuro consult -Medications reviewed, will hold losartan/HCTZ at this time -EKG with -PT/OT consult -Repeat orthostatic vitals in the morning Code(s): R55 - SYNCOPE AND COLLAPSE (2) Upper gastrointestinal hemorrhage due to gastritis Current Visit: Yes Status: Acute Assessment & Plan: -Cmp, cbc, PT/INR -PPI protonix BID IV -Monitor H&H Q6H, transfuse if hgb <7 -Occult stools -DC NSAID/ASA -Consult surgery for EGD/Colonoscopy Code(s): K29.71 - GASTRITIS, UNSPECIFIED, WITH BLEEDING (3) Hypertension Current Visit: Yes Status: Acute Assessment & Plan: -Hold losartan/HCTZ for now, will add hydralazine prn Code(s): I10 - ESSENTIAL (PRIMARY) HYPERTENSION (4) Acute on chronic kidney failure Current Visit: Yes Status: Acute Assessment & Plan: -Creat at 1.49 -Baseline appears to be around 1.2-1.4 when viewing past records -Gentle hydration -Avoid MARYCARMEN/ARBS NSAIDS -Monitor renal/lytes daily -Monitor for fluid overload Code(s): N17.9 - ACUTE KIDNEY FAILURE, UNSPECIFIED; N18.9 - CHRONIC KIDNEY DISEASE, UNSPECIFIED (5) Anemia Current Visit: Yes Status: Acute Assessment & Plan: -Microcytic/hypochromic, RDW at 19%, most likely is iron deficient rather than chronic disease, will add iron studies, B12/FA -Hgb at 7.7, will monitor and replace if hgb <7 -Hold ASA/Naproxen VTE: bilateral SCDs PPI: protonix Dispo: 1-2 days Next of Kin: Yani Nieves (spouse) [phone] Code(s): D64.9 - ANEMIA, UNSPECIFIED
[2023-08-30] MEDS ORDERED: TYLENOL 325 MG PO PRN (15:26)
[2023-08-30] MEDS ORDERED: Zofran 4 MG/2 ML VIAL IV PRN (15:26)
[2023-08-30] MEDS ORDERED: APRESOLINE 20 MG/ML INJ IV PRN (15:26)
[2023-08-30 16:02] LABS: ADD URINE CULTURE? YES (NO); Appearance Clear (Clear); Bacteria None Seen /HPF (None Seen); Bilirubin Negative (Negative); Blood Negative (Negative); Epithelial Cells None Seen /HPF (None Seen); Glucose, Urine Negative (Negative); Ketones Negative (Negative); Leukocyte Esterase Trace (Negative); Nitrite Negative (Negative); Protein,Urine Dip Trace (Negative); RBC 0-2 /HPF (0-5); WBC 0-2 /HPF (0-5)
[2023-08-30 16:03] LABS: INR 1.05 (0.8-3.0); PROTIME 11.4 SECONDS (9.4-12.5)
[2023-08-30 16:16] LABS: Iron 36 ug/dL (49-181); Iron Saturation 7 % (20-39); TIBC 490 ug/dL (261-497)
[2023-08-30 17:13] LABS: Folate (Folic Acid) 12.9 ng/mL (2.76 - >20); NT PRO BNPII 61.3 pg/mL (<300)
[2023-08-30] MEDS: Sodium Chloride 0.9% 1000 ML 1,000 ML IV SCH (18:14)
--- NOTE | 2023-08-30 19:45 | XRAY ---
Indication: Syncope. Comparison: April 06, 2021 Portable chest is now clear again with a few incidental tiny calcified granulomas. Heart and mediastinal structures within normal limits. Bony thorax intact. Impression: Nonacute chest. Again incidental old granulomatous disease.
[2023-08-30 19:48] LABS: Hemoglobin 7.1 g/dL (12.5-18.0)
[2023-08-30] MEDS: ZOCOR 20MG PO SCH (21:14)
[2023-08-30] MEDS: Flomax 0.4 MG PO SCH (21:14)
[2023-08-30] MEDS: PROTONIX 40 MG IV IV SCH (21:14)
[2023-08-30 23:18] LABS: IFOB TEST RESULTS NEGATIVE (NEGATIVE)
[2023-08-31 03:09] LABS: Hematocrit 27.4 % (42-50); Mean Cell Volume 62.6 fL (78-100); Mean Corpuscular Hgb Concent. 25.5 g/dL (32-36); Platelet Count 392 x10^3/uL (150-450); Red Blood Count 4.38 x10^6/uL (4.1-5.6); Red Cell Distribution Width 18.8 % (11.5-14.0); White Blood Count 7.9 x10^3/uL (4.0-10.5)
[2023-08-31 03:24] LABS: ALBUMIN 3.9 g/dL (3.5-5.0); ANION GAP 13.9 MEQ/L (5-15); BILIRUBIN,TOTAL 0.3 mg/dL (0.2-1.3); Calcium 9.4 mg/dL (8.4-10.2); Creatinine 1 1.39 mg/dL (0.66-1.25); EST GLOMERULAR FILTRATION RATE 52.5 ML/MIN; Total Protein 6.7 g/dL (6.3-8.2)
[2023-08-31] MEDS: Sodium Chloride 0.9% 1000 ML 1,000 ML IV SCH ×2 (06:44→19:25)
[2023-08-31 07:43] LABS: CROSS MATCH (PRBC) COMPATIBLE (COMPATIBLE)
--- NOTE | 2023-08-31 09:13 | PCM.NOTE ---
Date and Time: 08/31/23906 Subjective Assessment: is a 78 year old male with a pmhx of HTN, BPH, PUD, and DJD who presented to ED 08/30/23 after a syncopal episode at home around 9 a.m. in the morning. Patient states he was in his usual state of health when he felt lightheaded after cutting his brother hair. He took a minute to sit down but when he tried to get up and go inside he passed out. He states he did lose consciousness but was quick to recover (less than one minute). 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 He does know he was placed on metoprolol. He takes Naproxen for pain. D enies recent weight loss, early satiety, bloating, rectal bleeding/dark stools, fever, cough, sob, cp, abdominal pain, JARVIS, N/V, or diarrhea. In ED vitals unremarkable. SPO2 noted at 92% on RA. EKG showing HR 76 NS with no acute changes, ST elevations/deviations. CT of the head with no acute findings. Lab findings remarkable for hypochromic, microcytic anemia with a hgb of 7.7. GAP at 16.2, BUN 34, creat at 1.49. Patient given Protonix and IVF bolus. Troponins are wnl. Orthostatic vitals were unremarkable. Labs revealed iron deficiency anemia, ferrous sulfate po daily started. Hgb 7.0 this AM and 1 unit of blood ordered. Pt has been NPO since midnight and general surgery scheduled to see pt for possible EGD/ Colonoscopy today. Denies any dark or tarry stools overnight. Denies CP, SOB, abd. pain, N/V/D. <ANDIE DIANE - Last Filed: 08/31/23 09:07> Date and Time: 08/31/232116 <BENNY DOWNING - Last Filed: 08/31/23 21:18> - Review of Systems Constitutional: No Fever, No Chills Eyes: No Symptoms Ears, Nose, & Throat: No Symptoms Respiratory: No Cough, No Short Of Breath Cardiac: No Chest Pain, No Edema, No Syncope Abdominal/Gastrointestinal: No Abdominal Pain, No Nausea, No Vomiting, No Diarrhea Genitourinary Symptoms: No Dysuria Musculoskeletal: No Back Pain, No Neck Pain Skin: No Rash Neurological: No Dizziness, No Focal Weakness, No Sensory Changes Psychological: No Symptoms Endocrine: No Symptoms Hematologic/Lymphatic: No Symptoms Immunological/Allergic: No Symptoms <ANDIE DIANE - Last Filed: 08/31/23 09:07> Objective Exam General Appearance: no apparent distress, alert Neurologic Exam: alert, oriented x 3, cooperative, normal mood/affect, nml cerebellar function, sensation nml, No motor deficits Skin Exam: normal color, warm, dry Eye Exam: PERRL, EOMI, eyes nml inspection Ears, Nose, Throat Exam: normal ENT inspection, pharynx normal, moist mucous membranes Neck Exam: normal inspection, non-tender, supple, full range of motion Respiratory Exam: normal breath sounds, lungs clear, No respiratory distress Cardiovascular Exam: regular rate/rhythm, normal heart sounds Gastrointestinal/Abdomen Exam: soft, No tenderness, No mass Extremity Exam: normal inspection, normal range of motion Back Exam: normal inspection, normal range of motion, No CVA tenderness, No vertebral tenderness Male Genitalia Exam: deferred Rectal Exam: deferred <ANDIE DIANE - Last Filed: 08/31/23 09:07> OBJECTIVE DATA Vital Signs: Vital Signs - 24 hr Temp Pulse Resp BP BP Pulse Ox 08/31/23 07:05 97.5 F 82 17 144/68 95 08/31/23 04:00 97.2 F 86 18 122/67 92 L 08/30/23 23:46 97.1 F 81 18 138/63 93 L 08/30/23 20:00 98.3 F 85 18 132/61 96 08/30/23 15:51 97.7 F 87 18 148/69 93 L 08/30/23 14:14 92 L 08/30/23 12:27 85 22 135/71 93 L 08/30/23 11:30 76 17 114/64 91 L 08/30/23 11:20 88 29 H 114/64 93 L 08/30/23 10:49 97.2 F 86 17 129/71 92 L Pain Assessment - Last Documented Pain Intensity 0 Intake and Output: Intake & Output 1208/29/23 08/30/23 08/31/23 11:59 11:59 11:59 11:59 Intake Total 1323 Balance 1323 Weight 88.451 kg 90.3 kg Lab Results: Lab Results-Last 24 Hours 08/30/23 08/30/23 08/30/23 Range/Units 10:54 10:54 10:54 WBC 7.9 (4.0-10.5) x10^3/uL RBC 4.73 (4.1-5.6) x10^6/uL Hgb 7.7 L (12.5-18.0) g/dL Hct 29.5 L (42-50) % MCV 62.4 L (78-100) fL MCH 16.3 L (26-32) pg MCHC 26.1 L (32-36) g/dL RDW 19.1 H (11.5-14.0) % Plt Count 464 H (150-450) x10^3/uL MPV 10.8 (7.5-11.0) fL Gran % 73.3 H (36.0-66.0) % Immature Gran % (Auto) 0.5 H (0.00-0.4) % Nucleat RBC Rel Count 0.0 (0.00-0.1) % Eos # (Auto) 0.18 (0-0.5) x10^3/uL Immature Gran # (Auto) 0.04 H (0.00-0.03) x10^3u/L Absolute Lymphs (auto) 1.11 (1.0-4.6) x10^3/uL Absolute Monos (auto) 0.69 (0.0-1.3) x10^3/uL Absolute Nucleated RBC 0.00 (0.00-0.01) x10^3u/L Lymphocytes % 14.1 L (24.0-44.0) % Monocytes % 8.8 (0.0-12.0) % Eosinophils % 2.3 (0.00-5.0) % Basophils % 1.0 (0.0-0.4) % Absolute Granulocytes 5.75 (1.4-6.9) x10^3/uL Basophils # 0.08 (0-0.4) x10^3/uL PT (9.4-12.5) SECONDS INR (0.8-3.0) Sodium 138 (137-145) mmol/L Potassium 4.1 (3.5-5.1) mmol/L Chloride 104 (98-107) mmol/L Carbon Dioxide 22 (22-30) mmol/L Anion Gap 16.2 H (5-15) MEQ/L BUN 34 H (9-20) mg/dL Creatinine 1.49 H (0.66-1.25) mg/dL Estimated GFR 48.3 ML/MIN Glucose 130 H (74-106) mg/dL Lactic Acid (0.4-2.0) Calcium 10.1 (8.4-10.2) mg/dL Magnesium 2.0 (1.6-2.3) mg/dL Iron (49-181) ug/dL TIBC (261-497) ug/dL Iron Saturation (20-39) % Total Bilirubin 0.60 (0.2-1.3) mg/dL AST 34 (17-59) U/L ALT 20 (0-50) U/L Alkaline Phosphatase 64 (38-126) U/L Troponin I < 0.012 (0.000-0.034) ng/mL NT-Pro-B Natriuret Pep (<300) pg/mL Serum Total Protein 7.5 (6.3-8.2) g/dL Albumin 4.5 (3.5-5.0) g/dL Vitamin B12 (239-931) pg/mL Folic Acid (2.76 - >20) ng/mL Urine Color (Yellow) Urine Appearance (Clear) Urine pH (4.6-8.0) Ur Specific [place] (1.005-1.030) Urine Protein (Negative) Urine Glucose (UA) (Negative) mg/dL Urine Ketones (Negative) Urine Blood (Negative) Urine Nitrite (Negative) Urine Bilirubin (Negative) Urine Urobilinogen (0.2) mg/dL Ur Leukocyte Esterase (Negative) U Hyaline Cast (Auto) (0-2) /LPF Urine Microscopic RBC (0-5) /HPF Urine Microscopic WBC (0-5) /HPF Ur Epithelial Cells (None Seen) /HPF Urine Bacteria (None Seen) /HPF Urine Culture Reflexed (NO) Stl Occult Blood (IFOB) (NEGATIVE) Slides for Path Review YES ABO Group Rh Factor Antibody Screen (NEGATIVE) Crossmatch (COMPATIBLE) 08/30/23 08/30/23 08/30/23 Range/Units 10:54 10:54 10:54 WBC (4.0-10.5) x10^3/uL RBC (4.1-5.6) x10^6/uL Hgb (12.5-18.0) g/dL Hct (42-50) % MCV (78-100) fL MCH (26-32) pg MCHC (32-36) g/dL RDW (11.5-14.0) % Plt Count (150-450) x10^3/uL MPV (7.5-11.0) fL Gran % (36.0-66.0) % Immature Gran % (Auto) (0.00-0.4) % Nucleat RBC Rel Count (0.00-0.1) % Eos # (Auto) (0-0.5) x10^3/uL Immature Gran # (Auto) (0.00-0.03) x10^3u/L Absolute Lymphs (auto) (1.0-4.6) x10^3/uL Absolute Monos (auto) (0.0-1.3) x10^3/uL Absolute Nucleated RBC (0.00-0.01) x10^3u/L Lymphocytes % (24.0-44.0) % Monocytes % (0.0-12.0) % Eosinophils % (0.00-5.0) % Basophils % (0.0-0.4) % Absolute Granulocytes (1.4-6.9) x10^3/uL Basophils # (0-0.4) x10^3/uL PT 11.4 (9.4-12.5) SECONDS INR 1.05 (0.8-3.0) Sodium (137-145) mmol/L Potassium (3.5-5.1) mmol/L Chloride (98-107) mmol/L Carbon Dioxide (22-30) mmol/L Anion Gap (5-15) MEQ/L BUN (9-20) mg/dL Creatinine (0.66-1.25) mg/dL Estimated GFR ML/MIN Glucose (74-106) mg/dL Lactic Acid (0.4-2.0) Calcium (8.4-10.2) mg/dL Magnesium (1.6-2.3) mg/dL Iron (49-181) ug/dL TIBC (261-497) ug/dL Iron Saturation (20-39) % Total Bilirubin (0.2-1.3) mg/dL AST (17-59) U/L ALT (0-50) U/L Alkaline Phosphatase (38-126) U/L Troponin I (0.000-0.034) ng/mL NT-Pro-B Natriuret Pep 61.3 (<300) pg/mL Serum Total Protein (6.3-8.2) g/dL Albumin (3.5-5.0) g/dL Vitamin B12 329 (239-931) pg/mL Folic Acid 12.9 (2.76 - >20) ng/mL Urine Color Yellow (Yellow) Urine Appearance Clear (Clear) Urine pH 7.0 (4.6-8.0) Ur Specific [place] 1.020 (1.005-1.030) Urine Protein Trace A (Negative) Urine Glucose (UA) Negative (Negative) mg/dL Urine Ketones Negative (Negative) Urine Blood Negative (Negative) Urine Nitrite Negative (Negative) Urine Bilirubin Negative (Negative) Urine Urobilinogen 1.0 A (0.2) mg/dL Ur Leukocyte Esterase Trace A (Negative) U Hyaline Cast (Auto) 3-5 A (0-2) /LPF Urine Microscopic RBC 0-2 (0-5) /HPF Urine Microscopic WBC 0-2 (0-5) /HPF Ur Epithelial Cells None Seen (None Seen) /HPF Urine Bacteria None Seen (None Seen) /HPF Urine Culture Reflexed YES (NO) Stl Occult Blood (IFOB) (NEGATIVE) Slides for Path Review ABO Group Rh Factor Antibody Screen (NEGATIVE) Crossmatch (COMPATIBLE) 08/30/23 08/30/23 08/30/23 Range/Units 10:54 11:02 11:45 WBC (4.0-10.5) x10^3/uL RBC (4.1-5.6) x10^6/uL Hgb (12.5-18.0) g/dL Hct (42-50) % MCV (78-100) fL MCH (26-32) pg MCHC (32-36) g/dL RDW (11.5-14.0) % Plt Count (150-450) x10^3/uL MPV (7.5-11.0) fL Gran % (36.0-66.0) % Immature Gran % (Auto) (0.00-0.4) % Nucleat RBC Rel Count (0.00-0.1) % Eos # (Auto) (0-0.5) x10^3/uL Immature Gran # (Auto) (0.00-0.03) x10^3u/L Absolute Lymphs (auto) (1.0-4.6) x10^3/uL Absolute Monos (auto) (0.0-1.3) x10^3/uL Absolute Nucleated RBC (0.00-0.01) x10^3u/L Lymphocytes % (24.0-44.0) % Monocytes % (0.0-12.0) % Eosinophils % (0.00-5.0) % Basophils % (0.0-0.4) % Absolute Granulocytes (1.4-6.9) x10^3/uL Basophils # (0-0.4) x10^3/uL PT (9.4-12.5) SECONDS INR (0.8-3.0) Sodium (137-145) mmol/L Potassium (3.5-5.1) mmol/L Chloride (98-107) mmol/L Carbon Dioxide (22-30) mmol/L Anion Gap (5-15) MEQ/L BUN (9-20) mg/dL Creatinine (0.66-1.25) mg/dL Estimated GFR ML/MIN Glucose (74-106) mg/dL Lactic Acid 1.9 (0.4-2.0) Calcium (8.4-10.2) mg/dL Magnesium (1.6-2.3) mg/dL Iron 36 L (49-181) ug/dL TIBC 490 (261-497) ug/dL Iron Saturation 7 L (20-39) % Total Bilirubin (0.2-1.3) mg/dL AST (17-59) U/L ALT (0-50) U/L Alkaline Phosphatase (38-126) U/L Troponin I (0.000-0.034) ng/mL NT-Pro-B Natriuret Pep (<300) pg/mL Serum Total Protein (6.3-8.2) g/dL Albumin (3.5-5.0) g/dL Vitamin B12 (239-931) pg/mL Folic Acid (2.76 - >20) ng/mL Urine Color (Yellow) Urine Appearance (Clear) Urine pH (4.6-8.0) Ur Specific [place] (1.005-1.030) Urine Protein (Negative) Urine Glucose (UA) (Negative) mg/dL Urine Ketones (Negative) Urine Blood (Negative) Urine Nitrite (Negative) Urine Bilirubin (Negative) Urine Urobilinogen (0.2) mg/dL Ur Leukocyte Esterase (Negative) U Hyaline Cast (Auto) (0-2) /LPF Urine Microscopic RBC (0-5) /HPF Urine Microscopic WBC (0-5) /HPF Ur Epithelial Cells (None Seen) /HPF Urine Bacteria (None Seen) /HPF Urine Culture Reflexed (NO) Stl Occult Blood (IFOB) (NEGATIVE) Slides for Path Review ABO Group O Rh Factor NEGATIVE Antibody Screen NEGATIVE (NEGATIVE) Crossmatch (COMPATIBLE) 08/30/23 08/30/23 08/30/23 Range/Units 15:30 19:40 19:40 WBC (4.0-10.5) x10^3/uL RBC (4.1-5.6) x10^6/uL Hgb 7.1 L (12.5-18.0) g/dL Hct 27.0 L (42-50) % MCV (78-100) fL MCH (26-32) pg MCHC (32-36) g/dL RDW (11.5-14.0) % Plt Count (150-450) x10^3/uL MPV (7.5-11.0) fL Gran % (36.0-66.0) % Immature Gran % (Auto) (0.00-0.4) % Nucleat RBC Rel Count (0.00-0.1) % Eos # (Auto) (0-0.5) x10^3/uL Immature Gran # (Auto) (0.00-0.03) x10^3u/L Absolute Lymphs (auto) (1.0-4.6) x10^3/uL Absolute Monos (auto) (0.0-1.3) x10^3/uL Absolute Nucleated RBC (0.00-0.01) x10^3u/L Lymphocytes % (24.0-44.0) % Monocytes % (0.0-12.0) % Eosinophils % (0.00-5.0) % Basophils % (0.0-0.4) % Absolute Granulocytes (1.4-6.9) x10^3/uL Basophils # (0-0.4) x10^3/uL PT (9.4-12.5) SECONDS INR (0.8-3.0) Sodium (137-145) mmol/L Potassium (3.5-5.1) mmol/L Chloride (98-107) mmol/L Carbon Dioxide (22-30) mmol/L Anion Gap (5-15) MEQ/L BUN (9-20) mg/dL Creatinine (0.66-1.25) mg/dL Estimated GFR ML/MIN Glucose (74-106) mg/dL Lactic Acid (0.4-2.0) Calcium (8.4-10.2) mg/dL Magnesium (1.6-2.3) mg/dL Iron (49-181) ug/dL TIBC (261-497) ug/dL Iron Saturation (20-39) % Total Bilirubin (0.2-1.3) mg/dL AST (17-59) U/L ALT (0-50) U/L Alkaline Phosphatase (38-126) U/L Troponin I < 0.012 < 0.012 (0.000-0.034) ng/mL NT-Pro-B Natriuret Pep (<300) pg/mL Serum Total Protein (6.3-8.2) g/dL Albumin (3.5-5.0) g/dL Vitamin B12 (239-931) pg/mL Folic Acid (2.76 - >20) ng/mL Urine Color (Yellow) Urine Appearance (Clear) Urine pH (4.6-8.0) Ur Specific [place] (1.005-1.030) Urine Protein (Negative) Urine Glucose (UA) (Negative) mg/dL Urine Ketones (Negative) Urine Blood (Negative) Urine Nitrite (Negative) Urine Bilirubin (Negative) Urine Urobilinogen (0.2) mg/dL Ur Leukocyte Esterase (Negative) U Hyaline Cast (Auto) (0-2) /LPF Urine Microscopic RBC (0-5) /HPF Urine Microscopic WBC (0-5) /HPF Ur Epithelial Cells (None Seen) /HPF Urine Bacteria (None Seen) /HPF Urine Culture Reflexed (NO) Stl Occult Blood (IFOB) (NEGATIVE) Slides for Path Review ABO Group Rh Factor Antibody Screen (NEGATIVE) Crossmatch (COMPATIBLE) 08/30/23 08/31/23 08/31/23 Range/Units 23:07 03:06 03:06 WBC 7.9 (4.0-10.5) x10^3/uL RBC 4.38 (4.1-5.6) x10^6/uL Hgb 7.0 L* (12.5-18.0) g/dL Hct 27.4 L (42-50) % MCV 62.6 L (78-100) fL MCH 16.0 L (26-32) pg MCHC 25.5 L (32-36) g/dL RDW 18.8 H (11.5-14.0) % Plt Count 392 (150-450) x10^3/uL MPV 10.0 (7.5-11.0) fL Gran % (36.0-66.0) % Immature Gran % (Auto) (0.00-0.4) % Nucleat RBC Rel Count (0.00-0.1) % Eos # (Auto) (0-0.5) x10^3/uL Immature Gran # (Auto) (0.00-0.03) x10^3u/L Absolute Lymphs (auto) (1.0-4.6) x10^3/uL Absolute Monos (auto) (0.0-1.3) x10^3/uL Absolute Nucleated RBC (0.00-0.01) x10^3u/L Lymphocytes % (24.0-44.0) % Monocytes % (0.0-12.0) % Eosinophils % (0.00-5.0) % Basophils % (0.0-0.4) % Absolute Granulocytes (1.4-6.9) x10^3/uL Basophils # (0-0.4) x10^3/uL PT (9.4-12.5) SECONDS INR (0.8-3.0) Sodium 137 (137-145) mmol/L Potassium 4.0 (3.5-5.1) mmol/L Chloride 105 (98-107) mmol/L Carbon Dioxide 22 (22-30) mmol/L Anion Gap 13.9 (5-15) MEQ/L BUN 27 H (9-20) mg/dL Creatinine 1.39 H (0.66-1.25) mg/dL Estimated GFR 52.5 ML/MIN Glucose 107 H (74-106) mg/dL Lactic Acid (0.4-2.0) Calcium 9.4 (8.4-10.2) mg/dL Magnesium (1.6-2.3) mg/dL Iron (49-181) ug/dL TIBC (261-497) ug/dL Iron Saturation (20-39) % Total Bilirubin 0.30 (0.2-1.3) mg/dL AST 25 (17-59) U/L ALT 17 (0-50) U/L Alkaline Phosphatase 56 (38-126) U/L Troponin I (0.000-0.034) ng/mL NT-Pro-B Natriuret Pep (<300) pg/mL Serum Total Protein 6.7 (6.3-8.2) g/dL Albumin 3.9 (3.5-5.0) g/dL Vitamin B12 (239-931) pg/mL Folic Acid (2.76 - >20) ng/mL Urine Color (Yellow) Urine Appearance (Clear) Urine pH (4.6-8.0) Ur Specific [place] (1.005-1.030) Urine Protein (Negative) Urine Glucose (UA) (Negative) mg/dL Urine Ketones (Negative) Urine Blood (Negative) Urine Nitrite (Negative) Urine Bilirubin (Negative) Urine Urobilinogen (0.2) mg/dL Ur Leukocyte Esterase (Negative) U Hyaline Cast (Auto) (0-2) /LPF Urine Microscopic RBC (0-5) /HPF Urine Microscopic WBC (0-5) /HPF Ur Epithelial Cells (None Seen) /HPF Urine Bacteria (None Seen) /HPF Urine Culture Reflexed (NO) Stl Occult Blood (IFOB) NEGATIVE (NEGATIVE) Slides for Path Review ABO Group Rh Factor Antibody Screen (NEGATIVE) Crossmatch (COMPATIBLE) 08/31/23 Range/Units Unknown WBC (4.0-10.5) x10^3/uL RBC (4.1-5.6) x10^6/uL Hgb (12.5-18.0) g/dL Hct (42-50) % MCV (78-100) fL MCH (26-32) pg MCHC (32-36) g/dL RDW (11.5-14.0) % Plt Count (150-450) x10^3/uL MPV (7.5-11.0) fL Gran % (36.0-66.0) % Immature Gran % (Auto) (0.00-0.4) % Nucleat RBC Rel Count (0.00-0.1) % Eos # (Auto) (0-0.5) x10^3/uL Immature Gran # (Auto) (0.00-0.03) x10^3u/L Absolute Lymphs (auto) (1.0-4.6) x10^3/uL Absolute Monos (auto) (0.0-1.3) x10^3/uL Absolute Nucleated RBC (0.00-0.01) x10^3u/L Lymphocytes % (24.0-44.0) % Monocytes % (0.0-12.0) % Eosinophils % (0.00-5.0) % Basophils % (0.0-0.4) % Absolute Granulocytes (1.4-6.9) x10^3/uL Basophils # (0-0.4) x10^3/uL PT (9.4-12.5) SECONDS INR (0.8-3.0) Sodium (137-145) mmol/L Potassium (3.5-5.1) mmol/L Chloride (98-107) mmol/L Carbon Dioxide (22-30) mmol/L Anion Gap (5-15) MEQ/L BUN (9-20) mg/dL Creatinine (0.66-1.25) mg/dL Estimated GFR ML/MIN Glucose (74-106) mg/dL Lactic Acid (0.4-2.0) Calcium (8.4-10.2) mg/dL Magnesium (1.6-2.3) mg/dL Iron (49-181) ug/dL TIBC (261-497) ug/dL Iron Saturation (20-39) % Total Bilirubin (0.2-1.3) mg/dL AST (17-59) U/L ALT (0-50) U/L Alkaline Phosphatase (38-126) U/L Troponin I (0.000-0.034) ng/mL NT-Pro-B Natriuret Pep (<300) pg/mL Serum Total Protein (6.3-8.2) g/dL Albumin (3.5-5.0) g/dL Vitamin B12 (239-931) pg/mL Folic Acid (2.76 - >20) ng/mL Urine Color (Yellow) Urine Appearance (Clear) Urine pH (4.6-8.0) Ur Specific [place] (1.005-1.030) Urine Protein (Negative) Urine Glucose (UA) (Negative) mg/dL Urine Ketones (Negative) Urine Blood (Negative) Urine Nitrite (Negative) Urine Bilirubin (Negative) Urine Urobilinogen (0.2) mg/dL Ur Leukocyte Esterase (Negative) U Hyaline Cast (Auto) (0-2) /LPF Urine Microscopic RBC (0-5) /HPF Urine Microscopic WBC (0-5) /HPF Ur Epithelial Cells (None Seen) /HPF Urine Bacteria (None Seen) /HPF Urine Culture Reflexed (NO) Stl Occult Blood (IFOB) (NEGATIVE) Slides for Path Review ABO Group Rh Factor Antibody Screen (NEGATIVE) Crossmatch COMPATIBLE (COMPATIBLE) Radiology Exams: Radiology Procedures Category Date Time Status CAROTID BILATERAL [US] Routine Exams 08/31/23 08:00 Ordered CHEST 1 VIEW (PORTABLE) Stat Exams 08/30/23 11:09 Completed ECHO W/2D AND DOPPLER [US] Routine Exams 08/31/23 15:28 Ordered HEAD WITHOUT CONTRAST [CT] Stat Exams 08/30/23 11:09 Completed <ANDIE DIANE - Last Filed: 08/31/23 09:07> Vital Signs: Vital Signs - 24 hr Temp Pulse Resp BP Pulse Ox 08/31/23 18:47 98.2 F 16 131/63 08/31/23 16:31 97.8 F 90 16 129/69 97 08/31/23 13:48 97.9 F 83 16 144/84 94 L 08/31/23 11:50 97.7 F 83 18 138/67 94 L 08/31/23 10:47 98.0 F 94 H 16 150/71 95 08/31/23 07:05 97.5 F 82 17 144/68 95 08/31/23 04:00 97.2 F 86 18 122/67 92 L 08/30/23 23:46 97.1 F 81 18 138/63 93 L Pain Assessment - Last Documented Pain Intensity 0 Intake and Output: Intake & Output 08/29/23 08/30/23 08/31/23 09/01/23 11:59 11:59 11:59 11:59 Intake Total 1323 480 Balance 1323 480 Weight 88.451 kg 90.3 kg Lab Results: Lab Results-Last 24 Hours 08/30/23 08/31/23 08/31/23 Range/Units 23:07 03:06 03:06 WBC 7.9 (4.0-10.5) x10^3/uL RBC 4.38 (4.1-5.6) x10^6/uL Hgb 7.0 L* (12.5-18.0) g/dL Hct 27.4 L (42-50) % MCV 62.6 L (78-100) fL MCH 16.0 L (26-32) pg MCHC 25.5 L (32-36) g/dL RDW 18.8 H (11.5-14.0) % Plt Count 392 (150-450) x10^3/uL MPV 10.0 (7.5-11.0) fL Sodium 137 (137-145) mmol/L Potassium 4.0 (3.5-5.1) mmol/L Chloride 105 (98-107) mmol/L Carbon Dioxide 22 (22-30) mmol/L Anion Gap 13.9 (5-15) MEQ/L BUN 27 H (9-20) mg/dL Creatinine 1.39 H (0.66-1.25) mg/dL Estimated GFR 52.5 ML/MIN Glucose 107 H (74-106) mg/dL Calcium 9.4 (8.4-10.2) mg/dL Total Bilirubin 0.30 (0.2-1.3) mg/dL AST 25 (17-59) U/L ALT 17 (0-50) U/L Alkaline Phosphatase 56 (38-126) U/L Serum Total Protein 6.7 (6.3-8.2) g/dL Albumin 3.9 (3.5-5.0) g/dL Stl Occult Blood (IFOB) NEGATIVE (NEGATIVE) Crossmatch (COMPATIBLE) 08/31/23 08/31/23 Range/Units 14:20 Unknown WBC (4.0-10.5) x10^3/uL RBC (4.1-5.6) x10^6/uL Hgb 8.2 L (12.5-18.0) g/dL Hct 31.1 L (42-50) % MCV (78-100) fL MCH (26-32) pg MCHC (32-36) g/dL RDW (11.5-14.0) % Plt Count (150-450) x10^3/uL MPV (7.5-11.0) fL Sodium (137-145) mmol/L Potassium (3.5-5.1) mmol/L Chloride (98-107) mmol/L Carbon Dioxide (22-30) mmol/L Anion Gap (5-15) MEQ/L BUN (9-20) mg/dL Creatinine (0.66-1.25) mg/dL Estimated GFR ML/MIN Glucose (74-106) mg/dL Calcium (8.4-10.2) mg/dL Total Bilirubin (0.2-1.3) mg/dL AST (17-59) U/L ALT (0-50) U/L Alkaline Phosphatase (38-126) U/L Serum Total Protein (6.3-8.2) g/dL Albumin (3.5-5.0) g/dL Stl Occult Blood (IFOB) (NEGATIVE) Crossmatch COMPATIBLE (COMPATIBLE) Radiology Exams: Radiology Procedures Category Date Time Status CAROTID BILATERAL [US] Routine Exams 08/31/23 08:00 Completed CHEST 1 VIEW (PORTABLE) Stat Exams 08/30/23 11:09 Completed ECHO W/2D AND DOPPLER [US] Routine Exams 08/31/23 15:28 Taken HEAD WITHOUT CONTRAST [CT] Stat Exams 08/30/23 11:09 Completed Multi-Disciplinary Progress Notes: Multi-Disciplinary Progress Notes 08/31/23 12:18 Physical Therapy Note by Zafar (L [id number])Stephanie PT TO HOLD EVALUATION AT THIS TIME WITH EGD SCHEDULED TODAY AND BLOOD TRANSFUSION THIS AM D/T LOW HGB. Initialized on 08/31/23 12:18 - END OF NOTE <BENNY DOWNING - Last Filed: 08/31/23 21:18> Assessment/Plan (1) Syncope and collapse Current Visit: Yes Status: Acute Code(s): R55 - SYNCOPE AND COLLAPSE (2) Upper gastrointestinal hemorrhage due to gastritis Current Visit: Yes Status: Acute Code(s): K29.71 - GASTRITIS, UNSPECIFIED, WITH BLEEDING (3) Hypertension Current Visit: Yes Status: Acute Code(s): I10 - ESSENTIAL (PRIMARY) HYPERTENSION (4) Acute on chronic kidney failure Current Visit: Yes Status: Acute Code(s): N17.9 - ACUTE KIDNEY FAILURE, UNSPECIFIED; N18.9 - CHRONIC KIDNEY DISEASE, UNSPECIFIED (5) Anemia Current Visit: Yes Status: Acute Qualifiers: Anemia type: iron deficiency Assessment & Plan: (1) Syncope and collapse Current Visit: Yes Status: Acute Assessment & Plan: -CT of the head with no acute findings/orthostatic vitals negative -Gentle hydration/monitor for fluid overload -TELE -Echo -Carotid duplex -Consider MRI/ neuro consult -Medications reviewed, will hold losartan/HCTZ at this time -EKG - reviewed -PT/OT consult -Repeat orthostatic vitals in the morning 08/31 - orthostats WNL Code(s): R55 - SYNCOPE AND COLLAPSE (2) Upper gastrointestinal hemorrhage due to gastritis Current Visit: Yes Status: Acute Assessment & Plan: -Cmp, cbc, PT/INR -PPI protonix BID IV -Monitor H&H Q6H, transfuse if hgb <7 -Occult stools -DC NSAID/ASA -Consult surgery for EGD/Colonoscopy 08/31 - pt scheduled for scope at noon today - Hgb 7.0 -1 unit PRBC ordered Code(s): K29.71 - GASTRITIS, UNSPECIFIED, WITH BLEEDING (3) Hypertension Current Visit: Yes Status: Acute Assessment & Plan: -Hold losartan/HCTZ for now, will add hydralazine prn 08/31 - BP stable- trend Code(s): I10 - ESSENTIAL (PRIMARY) HYPERTENSION (4) Acute on chronic kidney failure Current Visit: Yes Status: Acute Assessment & Plan: -Creat at 1.49 -Baseline appears to be around 1.2-1.4 when viewing past records -Gentle hydration -Avoid MARYCARMEN/ARBS NSAIDS -Monitor renal/lytes daily -Monitor for fluid overload 08/31 - labs improved- trend Code(s): N17.9 - ACUTE KIDNEY FAILURE, UNSPECIFIED; N18.9 - CHRONIC KIDNEY DISEASE, UNSPECIFIED (5) Anemia Current Visit: Yes Status: Acute Assessment & Plan: -Microcytic/hypochromic, RDW at 19%, most likely is iron deficient rather than chronic disease, will add iron studies, B12/FA -Hgb at 7.7, will monitor and replace if hgb <7 -Hold ASA/Naproxen 08/31 - labs show iron deficiency anemia - Start oral ferrous sulfate daily - Hgb 7.0- 1 unit PRBC ordered. VTE: bilateral SCDs PPI: protonix Dispo: 1-2 days Next of Kin: Yani Nieves (spouse) [phone] Code(s): D64.9 - ANEMIA, UNSPECIFIED Code(s): D64.9 - ANEMIA, UNSPECIFIED <ANDIE DIANE - Last Filed: 08/31/23 09:07> ARTIS Encounter - ARTIS Encounter Attestation ARTIS Encounter Attestation: "IhavepersonallyseenandexaminedPITTMarcello,BETH DONNA andhavediscussed pertinent aspects of their care with Andie Ashby agree with the history, physical exam (any modifications based on my personal exam will be noted below), assessment, and plan as outlined in original note. Please see immediately below for my summary of findings and additional assessment and plan along with any meaningful corrections/explanations to the Subjective/Objective portions of the ARTIS note will be noted." My portion of the encounter took place via telemedicine. -Patient felt well today. He was awaiting his EGD this morning when I saw him (report pending). Agree with 1 unit PRBC transfusion for a Hg of 7. Echo and carotid US ordered as part of work up for syncope are also pending <BENNY DOWNING - Last Filed: 08/31/23 21:18>
--- NOTE | 2023-08-31 11:03 | XRAY ---
Indication: Syncope. Two-dimensional sonogram and color Doppler imaging carotid arteries of the neck performed. Comparison: None Examination of the right carotid circulation negative for focal plaquing, critical stenosis, or obstruction. PSV CCA is 114 cm/s. PSV ICA is 109 cm/s. ICA/CCA ratio is 0.9. Normal antegrade vertebral artery flow. Examination of the left carotid circulation demonstrates minimal eccentric soft plaquing at the level of the bulb extending into the proximal/origin internal carotid artery. Widely patent common carotid and external carotid arteries. PSV CCA is 92 cm/s. PSV ICA is 100 cm/s. ICA/CCA ratio is 1.1. Normal antegrade vertebral artery flow. Impression: Minimal arteriosclerotic plaquing left carotid circulation. Widely patent right carotid circulation. Velocity measurements and ratios are negative for hemodynamically significant flow limiting stenosis.
[2023-08-31] MEDS ORDERED: DIPRIVAN 200 MG/20 ML IV ONE (12:49)
[2023-08-31 13:49] VITALS: RESP 16
[2023-08-31] MEDS: PROTONIX 40 MG IV IV SCH ×2 (14:03→20:55)
[2023-08-31] MEDS: FEOSOL 325 MG PO SCH (14:03)
[2023-08-31] MEDS: Toprol-Xl 25MG Tablets PO SCH (14:03)
[2023-08-31 14:28] LABS: Hematocrit 31.1 % (42-50); Hemoglobin 8.2 g/dL (12.5-18.0)
[2023-08-31] MEDS: Flomax 0.4 MG PO SCH (20:55)
[2023-08-31] MEDS: ZOCOR 20MG PO SCH (20:55)
[2023-08-31 23:40] VITALS: BP 138/68; PULSE 80; TEMP 97.1; O2SAT 91
[2023-09-01 04:41] LABS: Hematocrit 29.9 % (42-50); Mean Corpuscular Hemoglobin 17.1 pg (26-32); Mean Corpuscular Hgb Concent. 26.8 g/dL (32-36); Mean Platelet Volume 9.9 fL (7.5-11.0); Platelet Count 409 x10^3/uL (150-450); Red Blood Count 4.67 x10^6/uL (4.1-5.6); Red Cell Distribution Width 21.2 % (11.5-14.0); White Blood Count 8.9 x10^3/uL (4.0-10.5)
[2023-09-01 04:55] LABS: ALBUMIN 4.1 g/dL (3.5-5.0); ANION GAP 11.2 MEQ/L (5-15); BILIRUBIN,TOTAL 0.5 mg/dL (0.2-1.3); Calcium 9.3 mg/dL (8.4-10.2); Creatinine 1 1.35 mg/dL (0.66-1.25); EST GLOMERULAR FILTRATION RATE 54.4 ML/MIN; Potassium 3.9 mmol/L (3.5-5.1)
[2023-09-01 05:17] LABS: Slide Review YES
--- NOTE | 2023-09-01 08:09 | CONS ---
CONSULT DATE: 08/31/2023 HISTORY: This patient was seen for Dr. Bridger Meredith who was collection coordinator for our group over the week\end. He asked that I see this patient today. This 78-year-old had presyncopal/syncopal episode and has anemia. He is getting some blood now. He is not having any bright blood or melena in the stools. He had some cardiac issues following COVID. He denies any abdominal pain. PAST MEDICAL HISTORY: He has hypertension, hyperlipidemia, benign prostatic hypertrophy and degenerative joint disease. PAST SURGICAL HISTORY: Appendectomy. Rotator cuff repair left shoulder. Cataract. HOME MEDICATIONS: Tamsulosin, valsartan/hydrochlorothiazide, simvastatin, naproxen, aspirin. ALLERGIES: NKDA. FAMILY HISTORY: Negative in regards to this specific problem. SOCIAL HISTORY: No smoking and no alcohol abuse. REVIEW OF SYSTEMS: Twelve systems reviewed. No chest pain or palpitations. No abdominal pain. No melena or bright red bloody stools. PHYSICAL EXAMINATION: GENERAL: No acute distress. HEENT: Sclera nonicteric. EOMI. Oral mucous membranes moist. NECK: No JVD. CHEST: Equal excursion, nonlabored breathing. CVS: Regular rate and rhythm. ABDOMEN: Soft. EXTREMITIES: No significant edema. NEURO: Alert, moving extremities grossly symmetrically. PSYCH: Appropriate mood and affect. SKIN: Dry. LAB DATA AND TESTS: Chest x-ray was unremarkable. CT head no acute changes. Labs were reviewed. IMPRESSION: Anemia unclear etiology. Dr. Bridger Meredith asked that I do an upper scope on this patient. He has not had a bowel prep but do a scope to evaluate for gastritis, peptic ulcer disease or other etiology, his naproxen and aspirin use. If it is negative, he might need consideration of follow up colonoscopy as an outpatient. Otherwise, continue medical management for hypertension, renal insufficiency, continue medical management and work up. He was explained the risks of upper endoscopy including but not limited to bleeding or infection, risk of bowel injury or perforation, risk of missed or nondiagnosis or incomplete exam possibly requiring other studies. If negative, may need outpatient colonoscopy down the road. He and his understand and agree to the planned procedure, will proceed with EGD possible biopsy when OR time available.
--- NOTE | 2023-09-01 08:58 | PCM.DS ---
Discharge Summary Date of Admission: 08/30/23 14:46 Date of Discharge: 09/01/23 Admitting Physician: TING SANTAMARIA MD Consults: Consults on Case 08/30/23 15:33 Consult Cardiology ROUTINE Consult Surgery ROUTINE Primary Care Provider: TANGELA FOY <ANDIE DIANE - Last Filed: 09/01/23 11:38> Date of Admission: 08/30/23 14:46 Date of Discharge: 09/01/23 Admitting Physician: TING SANTAMARIA MD Consults: Consults on Case 08/30/23 15:33 Consult Cardiology ROUTINE Consult Surgery ROUTINE Primary Care Provider: TANGELA FOY <BENNY DOWNING - Last Filed: 09/01/23 21:09> Allergies <ANDIE DIANE - Last Filed: 09/01/23 11:38> <BENNY DOWNING - Last Filed: 09/01/23 21:09> Allergies No Known Drug Allergies Allergy (Verified 08/30/23 10:47) Hospital Summary - Hospital Course Hospital Course: 08/31/23 is a 78 year old male with a pmhx of HTN, BPH, and DJD who presented to ED 08/30/23 after a syncopal episode at home around 9 a.m. in the morning. 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 He took a minute to sit down but when he tried to get up and go inside he passed out. He states he did lose consciousness but was quick to recover (less than one minute). When asked about his PMHX patient states he did have some cardiac issues following COVID but unsure of exact diagnosis or who his activities concierge is but reports his heart races. He does know he was placed on metoprolol. He takes Naproxen for pain. Denies recent weight loss, early satiety, bloating, rectal bleeding/dark stools, fever, cough, sob, cp, abdominal pain, JARVIS, N/V, or diarrhea. In ED vitals unremarkable. SPO2 noted at 92% on RA. EKG showing HR 76 NS with no acute changes, ST elevations/de viations. CT of the head with no acute findings. Lab findings remarkable for hypochromic, microcytic anemia with a hgb of 7.7. GAP at 16.2, BUN 34, creat at 1.49. Patient given Protonix and IVF bolus. Troponins are wnl. Orthostatic vitals were unremarkable. Labs revealed iron deficiency anemia, ferrous sulfate po daily started. Hgb 7.0 this AM and 1 unit of blood ordered. Pt has been NPO since midnight and general surgery scheduled to see pt for possible EGD/ Colonoscopy today. Denies any dark or tarry stools overnight. Denies CP, SOB, abd. pain, N/V/D. 09/01/23 Pt resting in bed. He had an EGD yesterday and it showed gastric erythema. He is to f/u OP with general surgery for colonoscopy. Hgb stble today at 8.0. He is eating and drinking well. Cardiology consult reviewed and agree with plan of care. Pt is to f/u with Dr. Barreto in 1 month. DEXTER has improved and he is now at baseline kidney function. Orthostats fine this morning. He is wanting to go home today. Will d/c with PPI. Denies any further concerns at this time. Advised to avoid NSAIDS OP. - Vitals & Intake/Output Vital Signs: Vital Signs Temperature 97.1 F 08/31/23 23:39 Pulse Rate 80 08/31/23 23:39 Respiratory Rate 16 08/31/23 23:39 Blood Pressure 138/68 08/31/23 23:39 O2 Sat by Pulse Oximetry 91 L 08/31/23 23:39 Intake & Output: Intake & Output 08/29/23 08/30/23 08/31/23 09/01/23 11:59 11:59 11:59 11:59 Intake Total 1323 720 Balance 1323 720 Weight 88.451 kg 90.3 kg - Lab Result Diagrams: 09/01/23 04:34 09/01/23 04:34 Lab Results-Last 24 Hrs: Lab Results-Last 24 Hours 08/31/23 09/01/23 09/01/23 Range/Units 14:20 04:34 04:34 WBC 8.9 (4.0-10.5) x10^3/uL RBC 4.67 (4.1-5.6) x10^6/uL Hgb 8.2 L 8.0 L (12.5-18.0) g/dL Hct 31.1 L 29.9 L (42-50) % MCV 64.0 L (78-100) fL MCH 17.1 L (26-32) pg MCHC 26.8 L (32-36) g/dL RDW 21.2 H (11.5-14.0) % Plt Count 409 (150-450) x10^3/uL MPV 9.9 (7.5-11.0) fL Sodium 139 (137-145) mmol/L Potassium 3.9 (3.5-5.1) mmol/L Chloride 109 H (98-107) mmol/L Carbon Dioxide 23 (22-30) mmol/L Anion Gap 11.2 (5-15) MEQ/L BUN 22 H (9-20) mg/dL Creatinine 1.35 H (0.66-1.25) mg/dL Estimated GFR 54.4 ML/MIN Glucose 115 H (74-106) mg/dL Calcium 9.3 (8.4-10.2) mg/dL Total Bilirubin 0.50 (0.2-1.3) mg/dL AST 23 (17-59) U/L ALT 17 (0-50) U/L Alkaline Phosphatase 57 (38-126) U/L Serum Total Protein 7.0 (6.3-8.2) g/dL Albumin 4.1 (3.5-5.0) g/dL Slides for Path Review YES Micro Results-Entire Visit: Microbiology 08/30/23 10:54 Urine Culture - Final Clean Catch Midstream NO GROWTH - Radiology Exams Ordered Rad Exams-Entire Visit: Radiology Procedures Category Date Time Status CAROTID BILATERAL [US] Routine Exams 08/31/23 08:00 Completed CHEST 1 VIEW (PORTABLE) Stat Exams 08/30/23 11:09 Completed ECHO W/2D AND DOPPLER [US] Routine Exams 08/31/23 15:28 Taken HEAD WITHOUT CONTRAST [CT] Stat Exams 08/30/23 11:09 Completed - Procedures and Test Procedures and Tests throughout Hospitalization: Therapy Orders & Screens 08/30/23 15:26 PT Eval & Treat ( Order) ONCE Reason for Eval:: syncope Diagnosis: Dizziness/GI bleed EKG REPEAT IN AM Comment: Diagnosis: Dizziness/GI bleed OT Eval and Treat ( Order) ONCE Comment: Physician Instructions: Reason For Exam: Diagnosis: Dizziness/GI bleed <ANDIE DIANE - Last Filed: 09/01/23 11:38> - Vitals & Intake/Output Vital Signs: Vital Signs Temperature 97.1 F 08/31/23 23:39 Pulse Rate 80 08/31/23 23:39 Respiratory Rate 16 08/31/23 23:39 Blood Pressure 138/68 08/31/23 23:39 O2 Sat by Pulse Oximetry 91 L 08/31/23 23:39 Intake & Output: Intake & Output 08/30/23 08/31/23 09/01/23 09/02/23 11:59 11:59 11:59 11:59 Intake Total 1323 1080 360 Output Total 1 Balance 1323 1080 359 Weight 88.451 kg 90.3 kg - Lab Result Diagrams: 09/01/23 04:34 09/01/23 04:34 Lab Results-Last 24 Hrs: Lab Results-Last 24 Hours 09/01/23 09/01/23 Range/Units 04:34 04:34 WBC 8.9 (4.0-10.5) x10^3/uL RBC 4.67 (4.1-5.6) x10^6/uL Hgb 8.0 L (12.5-18.0) g/dL Hct 29.9 L (42-50) % MCV 64.0 L (78-100) fL MCH 17.1 L (26-32) pg MCHC 26.8 L (32-36) g/dL RDW 21.2 H (11.5-14.0) % Plt Count 409 (150-450) x10^3/uL MPV 9.9 (7.5-11.0) fL Sodium 139 (137-145) mmol/L Potassium 3.9 (3.5-5.1) mmol/L Chloride 109 H (98-107) mmol/L Carbon Dioxide 23 (22-30) mmol/L Anion Gap 11.2 (5-15) MEQ/L BUN 22 H (9-20) mg/dL Creatinine 1.35 H (0.66-1.25) mg/dL Estimated GFR 54.4 ML/MIN Glucose 115 H (74-106) mg/dL Calcium 9.3 (8.4-10.2) mg/dL Total Bilirubin 0.50 (0.2-1.3) mg/dL AST 23 (17-59) U/L ALT 17 (0-50) U/L Alkaline Phosphatase 57 (38-126) U/L Serum Total Protein 7.0 (6.3-8.2) g/dL Albumin 4.1 (3.5-5.0) g/dL Slides for Path Review YES Micro Results-Entire Visit: Microbiology 08/30/23 10:54 Urine Culture - Final Clean Catch Midstream NO GROWTH - Radiology Exams Ordered Rad Exams-Entire Visit: Radiology Procedures Category Date Time Status CAROTID BILATERAL [US] Routine Exams 08/31/23 08:00 Completed ECHO W/2D AND DOPPLER [US] Routine Exams 08/31/23 15:28 Taken - Procedures and Test Procedures and Tests throughout Hospitalization: Therapy Orders & Screens 08/30/23 15:26 PT Eval & Treat (MD Order) ONCE Reason for Eval:: syncope Diagnosis: Dizziness/GI bleed EKG REPEAT IN AM Comment: Diagnosis: Dizziness/GI bleed OT Eval and Treat (MD Order) ONCE Comment: Physician Instructions: Reason For Exam: Diagnosis: Dizziness/GI bleed <BENNY DOWNING - Last Filed: 09/01/23 21:09> Discharge Exam General Appearance: no apparent distress, alert Neurologic Exam: alert, oriented x 3, cooperative, normal mood/affect, nml cerebellar function, sensation nml, No motor deficits Eye Exam: PERRL, EOMI, eyes nml inspection Ears, Nose, Throat Exam: normal ENT inspection, pharynx normal, moist mucous membranes Neck Exam: normal inspection, non-tender, supple, full range of motion Respiratory Exam: normal breath sounds, lungs clear, No respiratory distress Cardiovascular Exam: regular rate/rhythm, normal heart sounds Gastrointestinal/Abdomen Exam: soft, No tenderness, No mass Male Genitalia Exam: deferred Rectal Exam: deferred Back Exam: normal inspection, normal range of motion, No CVA tenderness, No vertebral tenderness Extremity Exam: normal inspection, normal range of motion Skin Exam: normal color, warm, dry <ANDIE DIANE - Last Filed: 09/01/23 11:38> Final Diagnosis/Problem List - Final Discharge Diagnosis/Problem (1) Syncope and collapse Status: Acute Code(s): R55 - SYNCOPE AND COLLAPSE (2) Upper gastrointestinal hemorrhage due to gastritis Status: Acute Code(s): K29.71 - GASTRITIS, UNSPECIFIED, WITH BLEEDING (3) Hypertension Status: Acute Code(s): I10 - ESSENTIAL (PRIMARY) HYPERTENSION (4) Acute on chronic kidney failure Status: Acute Code(s): N17.9 - ACUTE KIDNEY FAILURE, UNSPECIFIED; N18.9 - CHRONIC KIDNEY DISEASE, UNSPECIFIED (5) Anemia Status: Acute Assessment & Plan: (1) Syncope and collapse Current Visit: Yes Status: Acute Assessment & Plan: -CT of the head with no acute findings/orthostatic vitals negative -Gentle hydration/monitor for fluid overload -TELE -Echo -Carotid duplex -Consider MRI/ neuro consult -Medications reviewed, will hold losartan/HCTZ at this time -EKG - reviewed -PT/OT consult -Repeat orthostatic vitals in the morning 08/31 - orthostats WNL 09/01 - orthostats WNL Code(s): R55 - SYNCOPE AND COLLAPSE (2) Upper gastrointestinal hemorrhage due to gastritis Current Visit: Yes Status: Acute Assessment & Plan: -Cmp, cbc, PT/INR -PPI protonix BID IV -Monitor H&H Q6H, transfuse if hgb <7 -Occult stools -DC NSAID/ASA -Consult surgery for EGD/Colonoscopy 08/31 - pt scheduled for scope at noon today - Hgb 7.0 -1 unit PRBC ordered 09/01 - EGD showed gastric erythema - F/u OP for colonoscopy per GS. - Hgb stable at 8.0 Code(s): K29.71 - GASTRITIS, UNSPECIFIED, WITH BLEEDING (3) Hypertension Current Visit: Yes Status: Acute Assessment & Plan: -Hold losartan/HCTZ for now, will add hydralazine prn 08/31 - BP stable- trend Code(s): I10 - ESSENTIAL (PRIMARY) HYPERTENSION (4) Acute on chronic kidney failure Current Visit: Yes Status: Acute Assessment & Plan: -Creat at 1.49 -Baseline appears to be around 1.2-1.4 when viewing past records -Gentle hydration -Avoid MARYCARMEN/ARBS NSAIDS -Monitor renal/lytes daily -Monitor for fluid overload 08/31 - labs improved- trend 09/01 - at baseline Code(s): N17.9 - ACUTE KIDNEY FAILURE, UNSPECIFIED; N18.9 - CHRONIC KIDNEY DISEASE, UNSPECIFIED (5) Anemia Current Visit: Yes Status: Acute Assessment & Plan: -Microcytic/hypochromic, RDW at 19%, most likely is iron deficient rather than chronic disease, will add iron studies, B12/FA -Hgb at 7.7, will monitor and replace if hgb <7 -Hold ASA/Naproxen 08/31 - labs show iron deficiency anemia - Start oral ferrous sulfate daily - Hgb 7.0- 1 unit PRBC ordered. 09/01 - Hgb stable - Avoid NSAIDS OP Code(s): D64.9 - ANEMIA, UNSPECIFIED <ANDIE DIANE - Last Filed: 09/01/23 11:38> - Discharge Discharge Date: 09/01/23 <ANDIE DIANE - Last Filed: 09/01/23 11:38> <BENNY DOWNING - Last Filed: 09/01/23 21:09> - Discharge Disposition: Home, Self-Care Condition: Stable Prescriptions: New Ferrous Sulfate 325 mg [Feosol 325 mg] 325 mg PO DAILY 30 Days #30 tablet Ondansetron ODT 4 MG [Zofran Odt 4 mg] 4 mg PO Q6H PRN PRN #10 tablet PRN Reason: Vomiting Pantoprazole 20 mg [Protonix 20MG Tablet] 20 mg PO BID 30 Days #60 tab Continue Tamsulosin HCl 0.4 mg [Flomax 0.4 MG] 0.4 mg PO HS Simvastatin 20Mg [Zocor 20Mg] 20 mg PO HS Valsartan/Hydrochlorothiazide [Valsartan-Hctz 320-12.5 mg Tab] 1 tab PO DAILY Metoprolol Succinate 25 mg Xl* [Toprol-Xl 25MG Tablets] 25 mg PO DAILY Tramadol HCl 50 mg [Ultram 50 mg] 50 mg PO Q6H PRN PRN PRN Reason: Pain Discontinued Naproxen Sodium [Aleve] 220 mg PO BID Instructions: Syncope (Fainting) (DC) Additional Instructions: Avoid NSAIDS - no Ibuprofen or Aleve Follow up with: JEFFERSON BARRETO [CONSULTING PHYSICIAN] - 09/30/23 3:15 pm (appointment at [facility] with rosa) ITZ WHITTEN [COURTESY STAFF] - 09/10/23 9:55 am ([facility] ) TANGELA FOY NP [Primary Care Provider] - 09/04/23 2:45 pm ARTIS Encounter - ARTIS Encounter Attestation ARTIS Encounter Attestation: "IhavepersonallyseenandexamineBETH Bertrand andhavediscussed pertinent aspects of their care with Andie Ashby agree with the history, physical exam (any modifications based on my personal exam will be noted below), assessment, and plan as outlined in original note. Please see im mediately below for my summary of findings and additional assessment and plan along with any meaningful corrections/explanations to the Subjective/Objective portions of the ARTIS note will be noted." My portion of the encounter took place via telemedicine. <BENNY DOWNING - Last Filed: 09/01/23 21:09>
[2023-09-01] MEDS: Toprol-Xl 25MG Tablets PO SCH (09:25)
[2023-09-01] MEDS: FEOSOL 325 MG PO SCH (09:27)
[2023-09-01] MEDS: PROTONIX 40 MG IV IV SCH (09:29)
[2023-09-01] MEDS ORDERED: hydroDIURIL 25 MG PO SCH (10:00)
[2023-09-01] MEDS ORDERED: DIOVAN 80 MG PO SCH (10:00)
[2023-09-01] MEDS ORDERED: MEDICATION ON HOLD MC SCH (10:00)
--- NOTE | 2023-09-01 10:11 | OP ---
SURGERY DATE/TIME: 08/31/2023 1252 PREOPERATIVE DIAGNOSIS: History of anemia, syncopal episode, need for upper endoscopy to evaluate for upper GI source. POSTOPERATIVE DIAGNOSES: 1) Mild gastric erythema and congestion. 2) No signs of any ulcers or visible masses. PROCEDURES: 1) EGD with cold biopsy of small bowel to evaluate for etiology of anemia of chronic disease. 2) Cold biopsy of the antrum to evaluate for early inflammation and Helicobacter pylori. 3) Cold biopsy distal esophagus to evaluate for early or minimal inflammation. SURGEON: Dr. Orlin Kennedy. CDL B DRIVER: Erika Crane, Medical Student III. ANESTHESIA: MAC. ESTIMATED BLOOD LOSS: Minimal. INDICATIONS: As noted above. Risks and benefits explained in detail and not limited to and consent obtained. DESCRIPTION OF PROCEDURE AND FINDINGS: The patient is taken to the endoscopy room. MAC anesthesia introduced. After official time out and no disagreement with planned procedure, a bite block positioned. Video gastroscope easily passed down the esophagus down around to the junction of the third and fourth portion of the duodenum. The duodenum is grossly unremarkable. No signs of any ulcers or any significant inflammation. No signs of fresh or old blood. Cold biopsy is taken to evaluate for celiac or any other sources of chronic disease. Good hemostasis noted. The scope is pulled back in the stomach. There was some minimal to mild gastric erythema and a little bit of congestion. Cold biopsy is taken to evaluate for early inflammation and to evaluate for Helicobacter pylori. No signs of any ulcers, masses or other mucosal lesions. No signs of any fresh or old blood on retroflex. The gastroesophageal junction fairly snug against the scope. The scope pulled back to the gastroesophageal junction at about 40 cm. There is just a slight fibrous ring possibly early Schatzki ring. No evidence of any obstruction. Cold biopsy is taken on the esophageal side to evaluate for early inflammation. There were no signs of any ulcers or masses. No signs of any significant erosion. No sign of any varices. The scope is pulled back up in the esophagus. Good hemostasis noted. No signs of any esophageal mucosal lesions to account for anemia. The patient tolerated the procedure well. There were no immediate complications. The patient denied any blood stools. Likely would recommend considering outpatient colonoscopy at some point for further evaluation as he does not appear to have any ulcers, any sign of fresh or old blood in the upper GI tract. I will discuss the findings with his family in the waiting area.
== END 2023-09-01 14:48 | disposition home or self-care (01) ==
LOC: ED 10:40 → MED SURG 14:46
PROVIDERS: ADMIT Internal Medicine; ATTEND Internal Medicine
DX: R55 Syncope and collapse (principal); K29.71 Gastritis, unspecified, with bleeding; I12.9 Hypertensive chronic kidney disease with stage 1 through stage 4 chronic kidney disease, or unspecified chronic kidney disease; N18.9 Chronic kidney disease, unspecified; N17.9 Acute kidney failure, unspecified; D64.9 Anemia, unspecified; N40.0 Benign prostatic hyperplasia without lower urinary tract symptoms; M19.90 Unspecified osteoarthritis, unspecified site; E78.5 Hyperlipidemia, unspecified; Z79.899 Other long term (current) drug therapy; Z20.828 Contact with and (suspected) exposure to other viral communicable diseases; Z86.16 Personal history of COVID-19
CPT/HCPCS: 36000; 36415; 36430; 43239; 70450; 71045; 80053; 81001; 82607; 82746; 83540; 83550; 83605; 83735; 83880; 84484; 85014; 85018; 85025; 85027; 85610; 86850; 86900; 86901; 86922; 87086; 93005; 93041; 93306; 93880; 96374; 97161; 99285; G0328; P9016; Q3014; 82274; 93268; 99100; 99140; J2704; A9270-GY; G0378

== ENCOUNTER 2023-10-26 08:17 | Day surgery (SDC) | payer MEDICARE, BC ==
--- NOTE | 2023-10-23 13:24 | HP ---
PROCEDURE DATE: 10/26/2023 HISTORY OF PRESENT ILLNESS: The patient is a 78 year-old with history of anemia, no obvious source on upper endoscopy. Needs colonoscopy for further evaluation. PAST MEDICAL HISTORY: Hypertension, reflux, benign prostatic hypertrophy, hyperlipidemia, history of anemia. CURRENT MEDICATIONS: Has been on tramadol, metoprolol, valsartan, simvastatin, tamsulosin, pantoprazole, ondansetron, ferrous sulfate. ALLERGIES: NKDA. PAST SURGICAL HISTORY: Had rotator cuff, appendectomy in the past. FAMILY HISTORY: Diabetes, brain tumor, and chronic obstructive pulmonary disease. SOCIAL HISTORY: No smoking or alcohol abuse. REVIEW OF SYSTEMS: 12 systems reviewed. No chest pain or palpitations. Pertinent for multiple medical problems as noted above. Other systems negative or noncontributory other than above and per preadmission questionnaire. PHYSICAL EXAMINATION: Height 5' 8", BMI 30.41. Denies any blood in his stool. No change in bowel habits. Family history negative for colon cancer. It was felt as upper endoscopy did not determine any obvious source of anemia, he could benefit from colonoscopy for further evaluation to evaluate for lower GI source of his anemia. GENERAL: No acute distress. HEENT: Sclerae nonicteric. EOM intact. NECK: No JVD. CHEST: Equal excursion. Nonlabored breathing. CVS: Regular rate and rhythm. ABDOMEN: Soft. EXTREMITIES: No cyanosis or edema. NEURO: Alert and oriented, moving extremities symmetrically. PSYCH: Appropriate mood and affect. SKIN: Dry. RECTAL: Deferred until time of endoscopy exam. IMPRESSION: 1. ANEMIA. No obvious source on upper endoscopy. Needs colonoscopy. Shown the risk sheet. Explained risks and benefits in detail, but not limited to, bleeding; infection; risk of bowel injury or perforation possibly requiring open procedure; risk of incomplete exam possibly requiring barium enema or other studies or referrals or procedures; risk of anesthesia or sedation; risk of bowel prep, but not limited to. Will proceed with outpatient colonoscopy under MAC anesthesia. Otherwise, continue medication for benign prostatic hypertrophy, hypertension, hyperlipidemia, and reflux. Patient agrees with the plan.
[2023-10-26 08:51] VITALS: RESP 16; TEMP 98.2
[2023-10-26] MEDS ORDERED: Lactated Ringers 1,000 ML IV ONE (08:52)
[2023-10-26] MEDS: Lactated Ringers 1,000 ML IV SCH (08:53)
[2023-10-26] MEDS ORDERED: DIPRIVAN 200 MG/20 ML IV ONE ×2 (10:38→10:54)
[2023-10-26 11:46] VITALS: BP 148/78; PULSE 69; O2SAT 93
--- NOTE | 2023-10-26 11:55 | OP ---
SURGERY DATE/TIME: 10/26/2023 1040 PREOPERATIVE DIAGNOSIS: History of anemia, prior history of fairly unremarkable EGD, need for colonoscopy to evaluate for lower GI source. POSTOPERATIVE DIAGNOSES: 1) A few small telangiectasia cecum (no active bleeding). 2) Few scattered small diverticula left colon. 3) Small polyps transverse colon, rectosigmoid colon and rectum. 4) Withdrawal time about 12 minutes. 5) Prep overall was fair. PROCEDURES: 1) Colonoscopy to cecum 2) Hot biopsy polypectomy, piecemeal polypectomy transverse colon polyp. 3) Hot biopsy polypectomy of second transverse colon polyp. 4) Hot biopsy polypectomy of two small rectosigmoid colon polyps. 5) Hot biopsy polypectomy of small rectal polyp versus hyperplastic lesion, path pending. SURGEON: Dr. Orlin Kennedy. ANESTHESIA: MAC. ESTIMATED BLOOD LOSS: Minimal. INDICATIONS: As noted above. Consent obtained. DESCRIPTION OF PROCEDURE AND FINDINGS: The patient is taken to the endoscopy room. MAC anesthesia induced. After official time out and no disagreement with planned procedure, digital rectal exam did not reveal any rectal masses. He had some minimal internal and external hemorrhoids. Video colonoscope inserted and passed up through the slightly tortuous sigmoid, descending, transverse and ascending colon. With the external pressure the scope was able to be passed around to the cecum. Appendiceal orifice and ileocecal valve well visualized and photo documented. There were no signs of active bleeding. He did have some small telangiectasia but no signs of any active bleeding. He was not having any bloody stools. It was felt this is not the source of his anemia. The scope is slowly and carefully withdrawn over the next 12 minutes. Prep overall was good with a little bit of liquidy stool, overall good prep. The scope is slowly and carefully withdrawn. There was a polyp that was about 3.5 mm removed with hot biopsy polypectomy in the transverse colon on a fold removed in three pieces. Good hemostasis noted. Scope is carefully pulled back. Another small polyp in the transverse colon removed with hot biopsy polypectomy. Good hemostasis was noted. The scope is then carefully pulled back. He had a few tiny scattered diverticula in the left colon. Otherwise, a couple of small polyps in the rectosigmoid colon removed with hot biopsy polypectomy. Small early polyp versus hyperplastic lesion in the rectum removed was removed with hot biopsy polypectomy. Good hemostasis noted. No signs of any large polyps, masses or obstructing lesions. No major source of anemia as he has not had any recent bloody stools. He did have a few small telangiectasia in the cecum. If he has bloody stools down the road could be a potential source of anemia. Findings discussed with the family out in the waiting area.
== END 2023-10-26 11:50 | disposition home or self-care (01) ==
LOC: SDC 08:17
PROVIDERS: ATTEND Surgery
DX: Z86.2 Personal history of diseases of the blood and blood-forming organs and certain disorders involving the immune mechanism (principal); I78.1 Nevus, non-neoplastic; K57.30 Diverticulosis of large intestine without perforation or abscess without bleeding; D12.7 Benign neoplasm of rectosigmoid junction; D12.3 Benign neoplasm of transverse colon; K62.1 Rectal polyp; K64.4 Residual hemorrhoidal skin tags; K64.8 Other hemorrhoids
CPT/HCPCS: 99100; J2704

== ENCOUNTER 2025-07-14 09:21 | Observation (INO) | payer MEDICARE, BC ==
--- NOTE | 2025-07-14 09:34 | ERPHSYRPT ---
- History of Present Illness Time Seen by Provider: 07/14/25 09:33 Source: patient, EMS, old records Exam Limitations: no limitations Physician History: This is a 80-year-old white male patient who presents to the emergency department transported by the paramedics and is a patient of nurse practitioner Naman with the complaint of weakness and fever and low oxygen saturation levels 89% on room air. Paramedics placed him on 2 L of oxygen via nasal cannula and his room air oxygen saturation level is now 95%. Symptoms began 1 week ago. Intermittently over a week, the patient states he has had nausea vomiting symptoms without diarrhea. He denies chest pain and he denies abdominal pain. Last night, the patient states he was too weak to walk to the restroom so he crawled to the restroom to use it. This morning, he was helped to the restroom by his . He was standing up and then he fell to the ground missing the toilet when he went to sit on it. Patient was too weak to get up on his own. The paramedics were contacted for lift assistance. However, history is as above. His oral intake has decreased. He has had a history of syncopal episode secondary to anemia in the past. Patient has a history of hypertension, hyperlipidemia, prostate issues and gastroesophageal reflux disease. He has seen Dr. Alvarez, a erp pm in the past. However, this was secondary to the syncopal episode that occurred and not coronary artery disease or primary heart condition. He has not noticed any blood loss acutely or chronically. Timing/Duration: week(s), worse Severity: moderate Associated Symptoms: nausea, fever, loss of appetite, malaise, weakness, No chest pain Allergies/Adverse Reactions: No Known Drug Allergies Allergy (Verified 07/14/25 11:55) Home Medications: Tamsulosin HCl 0.4 mg [Flomax 0.4 MG] 0.4 mg PO HS 10/22/20 [History] Simvastatin 20Mg [Zocor 20Mg] 20 mg PO HS 01/01/21 [History] Metoprolol Succinate 25 mg Xl* [Toprol-Xl 25MG Tablets] 25 mg PO DAILY 08/30/23 [History] Tramadol HCl 50 mg [Ultram 50 mg] 50 mg PO Q6H PRN PRN 08/30/23 [History] Valsartan/Hydrochlorothiazide [Valsartan-Hctz 320-12.5 mg Tab] 1 tab PO DAILY 08/30/23 [History] Hx Tetanus, Diphtheria Vaccination/Date Given: No Hx Influenza Vaccination/Date Given: Yes Hx Pneumococcal Vaccination/Date Given: Yes Travel Risk - International Travel Have you traveled outside of the country in past 3 weeks: No - Emerging Infectious Disease Are you exhibiting symptoms associated with any current EIDs: Yes Symptoms: Fever, Other (Please Comment) (Low oxygen saturation, weakness) - Review of Systems Constitutional: Fever, Weakness Eyes: No Symptoms Ears, Nose, & Throat: No Symptoms Respiratory: No Symptoms Cardiac: No Symptoms Abdominal/Gastrointestinal: Nausea, Vomiting, Appetite Changes, No Abdominal Pain, No Diarrhea, No Constipation Genitourinary Symptoms: No Symptoms Musculoskeletal: No Symptoms Skin: No Symptoms Neurological: No Symptoms Psychological: No Symptoms Endocrine: No Symptoms Hematologic/Lymphatic: No Symptoms Immunological/Allergic: No Symptoms All Other Systems: Reviewed and Negative - Past Medical History Pertinent Past Medical History: Yes Neurological History: No Pertinent History ENT History: Cataracts Cardiac History: High Cholesterol, Hypertension Respiratory History: No Pertinent History Endocrine Medical History: No Pertinent History Musculoskeletal History: No Pertinent History GI Medical History: No Pertinent History History: No Pertinent History Psycho-Social History: No Pertinent History Male Reproductive Disorders: Other Other Medical History: decreased urinary flow, enlarged prostate, hx of syncopal episode, hx of anemia - Past Surgical History Past Surgical History: Yes Neuro Surgical History: No Pertinent History Cardiac: No Pertinent History Respiratory: No Pertinent History Gastrointestinal: Appendectomy Genitourinary: No Pertinent History Musculoskeletal: Orthopedic Surgery Male Surgical History: No Pertinent History Other Surgical History: Rot. cuff repair left shoulder 2012, cataract removal w/lens implant to right eye November 2020 - Social History Smoking Status: Never smoker Exposure to second hand smoke: No - Social Determinants of Health Will the patient participate in the screening: Yes Do you worry about a steady place to live?: No In the past 12 months,have you had to go without utilities?: No Transportation Issues: No Has anyone in your support network made you feel unsafe?: No Have you or anyone in your house had to go w/o enough food: No - Nursing Vital Signs Nursing Vital Signs: Initial Vital Signs Pulse Rate 104 H 07/14/25 09:30 Respiratory Rate 18 07/14/25 09:30 Blood Pressure 140/63 07/14/25 09:30 Pain Scale Pain Intensity 6 - Physical Exam General Appearance: mild distress, alert Eye Exam: PERRL/EOMI, eyes nml inspection Ears, Nose, Throat Exam: dry mucous membranes Neck Exam: normal inspection, non-tender, supple, full range of motion Respiratory Exam: normal breath sounds, lungs clear, airway intact, No chest tenderness, No respiratory distress Cardiovascular Exam: regular rate/rhythm, normal heart sounds, normal peripheral pulses Gastrointestinal/Abdomen Exam: soft, normal bowel sounds, No tenderness Rectal Exam: not done Back Exam: normal inspection, normal range of motion, No CVA tenderness, No vertebral tenderness Extremity Exam: normal inspection, normal range of motion, pelvis stable Neurologic Exam: alert, oriented x 3, cooperative, tester rocket engine II-XII nml as tested, sensation nml Skin Exam: warm, dry, pale (Questionable) Lymphatic Exam: No adenopathy SpO2 Interpretation: normal O2 Delivery: Room Air - Course Nursing assessment & vital signs reviewed: Yes EKG Interpreted by Me: RATE (106), Sinus Tach, LAFB, NORMAL INTERVALS, NORMAL QRS, Other (QTc is 444. No acute ischemia on today's twelve-lead EKG.) Ordered Tests: Active Orders 24 hr Category Date Time Status Industrial Welder STAT Care 07/14/25 09:42 Active EKG-ER Only STAT Care 07/14/25 09:41 Active IV Insertion STAT Care 07/14/25 09:41 Active Pulse Oximetry (ED) STAT Care 07/14/25 09:41 Active CHEST 1 VIEW (PORTABLE) Stat Exams 07/14/25 09:52 Completed BLOOD CULTURE Stat Lab 07/14/25 10:56 Received CBC W DIFF Stat Lab 07/14/25 10:10 Completed CMP Stat Lab 07/14/25 10:07 Completed CULTURE,URINE Stat Lab 07/14/25 09:46 Received Lactic Acid Stat Lab 07/14/25 09:41 Completed Lactic Acid Stat Lab 07/14/25 12:25 Received MAGNESIUM Stat Lab 07/14/25 10:07 Completed MONO SCREEN Stat Lab 07/14/25 10:07 Completed NT PRO BNPII Stat Lab 07/14/25 10:07 Completed PROCALCITONIN Stat Lab 07/14/25 10:07 Completed PROTIME WITH INR Stat Lab 07/14/25 10:07 Completed UA W/RFX UR CULTURE Stat Lab 07/14/25 09:46 Completed Transfer Order Routine Transfer 07/14/25 Ordered Medication Summary Generic Name Dose Route Start Last Admin Trade Name Huong PRN Reason Stop Dose Admin Sodium Chloride 1,000 mls @ 100 mls/hr 07/14/25 09:45 07/14/25 11:49 Sodium Chloride 0.9% 1000 Ml IV 08/13/25 09:44 100 mls/hr .Q10H SONIA Administration Discontinued Medications Generic Name Dose Route Start Last Admin Trade Name Huong PRN Reason Stop Dose Admin Ceftriaxone Sodium 1 gm in 100 mls @ 200 mls/hr 07/14/25 11:02 07/14/25 12:07 Rocephin 1 Gm / 100 Ml Nacl IV 07/14/25 11:31 Infused STAT ONE Infusion Ceftriaxone Sodium Confirm 07/14/25 11:18 Rocephin 1 Gm / 100 Ml Nacl Administered 07/14/25 11:19 Dose 1 gm in 100 mls @ ud IV .STK-MED ONE Lab/Rad Data: Laboratory Result Diagrams 07/14/25 10:10 07/14/25 10:07 Laboratory Results 07/14/25 07/14/25 07/14/25 Range/Units 10:10 10:09 10:07 WBC 16.2 H (4.23-9.07) x10^3/uL RBC 4.86 (4.63-6.08) x10^6/uL Hgb 14.3 (13.7-17.5) g/dL Hct 43.8 (40.1-51.0) % MCV 90.1 (79.0-92.2) fL MCH 29.4 (25.7-32.2) pg MCHC 32.6 (32.3-36.5) g/dL RDW 12.2 (11.6-14.4) % Plt Count 202 (163-337) x10^3/uL MPV 10.5 (9.4-12.4) fL Gran % 89.8 H (34.0-67.9) % Immature Gran % (Auto) 0.7 H (0.001-0.429) % Nucleat RBC Rel Count 0.0 (0.00-0.2) % Eos # (Auto) 0 L (0.04-0.54) x10^3/uL Immature Gran # (Auto) 0.12 H (0.001-0.031) x10^3u/L Absolute Lymphs (auto) 0.25 L (1.32-3.57) x10^3/uL Absolute Monos (auto) 1.28 H (0.30-0.82) x10^3/uL Absolute Nucleated RBC 0.00 (0.00-0.012) x10^3u/L Lymphocytes % 1.5 L (21.8-53.1) % Monocytes % 7.9 (5.3-12.2) % Eosinophils % 0.0 L (0.8-7.0) % Basophils % 0.1 L (0.2-1.2) % Absolute Granulocytes 14.51 H (1.78-5.38) x10^3/uL Basophils # 0.02 (0.01-0.08) x10^3/uL PT (9.4-12.5) SECONDS INR (0.8-3.0) Sodium (135-145) mmol/L Potassium (3.5-5.1) mmol/L Chloride (98-107) mmol/L Carbon Dioxide (22-30) mmol/L Anion Gap (5-15) MEQ/L BUN (9-20) mg/dL Creatinine (0.66-1.25) mg/dL Estimated GFR ML/MIN Glucose (74-106) mg/dL Lactic Acid (0.4-2.0) Calcium (8.4-10.2) mg/dL Magnesium (1.6-2.3) mg/dL Total Bilirubin (0.2-1.3) mg/dL AST (17-59) U/L ALT (0-50) U/L Alkaline Phosphatase (38-126) U/L NT-Pro-B Natriuret Pep (<300) pg/mL Serum Total Protein (6.3-8.2) g/dL Albumin (3.5-5.0) g/dL Procalcitonin (0.030-0.080) ng/mL Urine Color (Yellow) Urine Appearance (Clear) Urine pH (4.6-8.0) Ur Specific [place] (1.005-1.030) Urine Protein (Negative) Urine Glucose (UA) (Negative) mg/dL Urine Ketones (Negative) Urine Blood (Negative) Urine Nitrite (Negative) Urine Bilirubin (Negative) Urine Urobilinogen (0.2) mg/dL Ur Leukocyte Esterase (Negative) U Hyaline Cast (Auto) (0-2) /LPF Urine Microscopic RBC (0-5) /HPF Urine Microscopic WBC (0-5) /HPF Ur Epithelial Cells (None Seen) /HPF Urine Bacteria (None Seen) /HPF Urine Culture Reflexed (NO) Monoscreen NEGATIVE (NEGATIVE) Influenza Type A Ag NEGATIVE (NEGATIVE) Influenza Type B Ag NEGATIVE (NEGATIVE) RSV (PCR) NEGATIVE (NEGATIVE) SARS-CoV-2 (PCR) NEGATIVE (NEGATIVE) Slides for Path Review YES 07/14/25 07/14/25 07/14/25 Range/Units 10:07 10:07 09:46 WBC (4.23-9.07) x10^3/uL RBC (4.63-6.08) x10^6/uL Hgb (13.7-17.5) g/dL Hct (40.1-51.0) % MCV (79.0-92.2) fL MCH (25.7-32.2) pg MCHC (32.3-36.5) g/dL RDW (11.6-14.4) % Plt Count (163-337) x10^3/uL MPV (9.4-12.4) fL Gran % (34.0-67.9) % Immature Gran % (Auto) (0.001-0.429) % Nucleat RBC Rel Count (0.00-0.2) % Eos # (Auto) (0.04-0.54) x10^3/uL Immature Gran # (Auto) (0.001-0.031) x10^3u/L Absolute Lymphs (auto) (1.32-3.57) x10^3/uL Absolute Monos (auto) (0.30-0.82) x10^3/uL Absolute Nucleated RBC (0.00-0.012) x10^3u/L Lymphocytes % (21.8-53.1) % Monocytes % (5.3-12.2) % Eosinophils % (0.8-7.0) % Basophils % (0.2-1.2) % Absolute Granulocytes (1.78-5.38) x10^3/uL Basophils # (0.01-0.08) x10^3/uL PT 12.8 H (9.4-12.5) SECONDS INR 1.15 (0.8-3.0) Sodium 134 L (135-145) mmol/L Potassium 3.5 (3.5-5.1) mmol/L Chloride 102 (98-107) mmol/L Carbon Dioxide 25 (22-30) mmol/L Anion Gap 10.8 (5-15) MEQ/L BUN 36 H (9-20) mg/dL Creatinine 2.12 H (0.66-1.25) mg/dL Estimated GFR 31.3 ML/MIN Glucose 134 H (74-106) mg/dL Lactic Acid (0.4-2.0) Calcium 9.2 (8.4-10.2) mg/dL Magnesium 2.1 (1.6-2.3) mg/dL Total Bilirubin 1.40 H (0.2-1.3) mg/dL AST 39 (17-59) U/L ALT 26 (0-50) U/L Alkaline Phosphatase 63 (38-126) U/L NT-Pro-B Natriuret Pep 407 (<300) pg/mL Serum Total Protein 7.4 (6.3-8.2) g/dL Albumin 4.0 (3.5-5.0) g/dL Procalcitonin 5.330 H* (0.030-0.080) ng/mL Urine Color Dark Yellow (Yellow) Urine Appearance Clear (Clear) Urine pH 6.0 (4.6-8.0) Ur Specific [place] 1.020 (1.005-1.030) Urine Protein 100 A (Negative) Urine Glucose (UA) Negative (Negative) mg/dL Urine Ketones Trace A (Negative) Urine Blood Moderate A (Negative) Urine Nitrite Negative (Negative) Urine Bilirubin Small A (Negative) Urine Urobilinogen 2.0 A (0.2) mg/dL Ur Leukocyte Esterase Moderate A (Negative) U Hyaline Cast (Auto) 3-5 A (0-2) /LPF Urine Microscopic RBC 3-5 (0-5) /HPF Urine Microscopic WBC 51-100 A (0-5) /HPF Ur Epithelial Cells Few (None Seen) /HPF Urine Bacteria Rare A (None Seen) /HPF Urine Culture Reflexed YES (NO) Monoscreen (NEGATIVE) Influenza Type A Ag (NEGATIVE) Influenza Type B Ag (NEGATIVE) RSV (PCR) (NEGATIVE) SARS-CoV-2 (PCR) (NEGATIVE) Slides for Path Review 07/14/25 Range/Units 09:41 WBC (4.23-9.07) x10^3/uL RBC (4.63-6.08) x10^6/uL Hgb (13.7-17.5) g/dL Hct (40.1-51.0) % MCV (79.0-92.2) fL MCH (25.7-32.2) pg MCHC (32.3-36.5) g/dL RDW (11.6-14.4) % Plt Count (163-337) x10^3/uL MPV (9.4-12.4) fL Gran % (34.0-67.9) % Immature Gran % (Auto) (0.001-0.429) % Nucleat RBC Rel Count (0.00-0.2) % Eos # (Auto) (0.04-0.54) x10^3/uL Immature Gran # (Auto) (0.001-0.031) x10^3u/L Absolute Lymphs (auto) (1.32-3.57) x10^3/uL Absolute Monos (auto) (0.30-0.82) x10^3/uL Absolute Nucleated RBC (0.00-0.012) x10^3u/L Lymphocytes % (21.8-53.1) % Monocytes % (5.3-12.2) % Eosinophils % (0.8-7.0) % Basophils % (0.2-1.2) % Absolute Granulocytes (1.78-5.38) x10^3/uL Basophils # (0.01-0.08) x10^3/uL PT (9.4-12.5) SECONDS INR (0.8-3.0) Sodium (135-145) mmol/L Potassium (3.5-5.1) mmol/L Chloride (98-107) mmol/L Carbon Dioxide (22-30) mmol/L Anion Gap (5-15) MEQ/L BUN (9-20) mg/dL Creatinine (0.66-1.25) mg/dL Estimated GFR ML/MIN Glucose (74-106) mg/dL Lactic Acid 2.2 H (0.4-2.0) Calcium (8.4-10.2) mg/dL Magnesium (1.6-2.3) mg/dL Total Bilirubin (0.2-1.3) mg/dL AST (17-59) U/L ALT (0-50) U/L Alkaline Phosphatase (38-126) U/L NT-Pro-B Natriuret Pep (<300) pg/mL Serum Total Protein (6.3-8.2) g/dL Albumin (3.5-5.0) g/dL Procalcitonin (0.030-0.080) ng/mL Urine Color (Yellow) Urine Appearance (Clear) Urine pH (4.6-8.0) Ur Specific [place] (1.005-1.030) Urine Protein (Negative) Urine Glucose (UA) (Negative) mg/dL Urine Ketones (Negative) Urine Blood (Negative) Urine Nitrite (Negative) Urine Bilirubin (Negative) Urine Urobilinogen (0.2) mg/dL Ur Leukocyte Esterase (Negative) U Hyaline Cast (Auto) (0-2) /LPF Urine Microscopic RBC (0-5) /HPF Urine Microscopic WBC (0-5) /HPF Ur Epithelial Cells (None Seen) /HPF Urine Bacteria (None Seen) /HPF Urine Culture Reflexed (NO) Monoscreen (NEGATIVE) Influenza Type A Ag (NEGATIVE) Influenza Type B Ag (NEGATIVE) RSV (PCR) (NEGATIVE) SARS-CoV-2 (PCR) (NEGATIVE) Slides for Path Review - Progress Progress: improved, re-examined Progress Note: 07/14/25 09:57 My medical decision making and the assignment of moderate to high complexity of this patient's medical issue today is based on review of the patient's past medical history, review the patient's medication list, reviewed patient drug allergy list, history present illness and physical findings on examination. The workup in this patient includes placement of intravenous line, infusion of normal saline solution, CBC, CMP, magnesium level, lactic acid level, procalcitonin level, twelve-lead EKG, BNP, troponin level, chest x-ray, viral swabs, monotest, urinalysis, PT/INR Differential diagnosis includes but is not limited to anemia, generalized weakness, dehydration, urinary tract infection, viral illness, arrhythmia, myocardial infarction, pulmonary infiltrate 07/14/25 11:22 I interpreted the patient's laboratory data results. Based on laboratory data results, the patient has a leukocytosis of 16,200, and elevated lactic acid level 2.2, and elevated procalcitonin level of 5.33 acute on chronic renal insufficiency with a GFR of 31.3. There is a normal CO2 and normal anion gap. Patient has evidence of at least a moderate urinary tract infection. I interpreted the preliminary chest x-ray report of this patient. Patient has a right mid upper lobe pulmonary infiltrate. 07/14/25 12:[address] Cordova, our telehospitalist on-call at this time. I reviewed the patient history, presenting complaint, workup results and patient response to our interventions. We will place this patient in observation. She agrees with this plan. We will repeat labs, have respiratory therapy work with his pulmonary status and continue intravenous antibiotics. Discussed with : Paul Counseled pt/family regarding: lab results, diagnosis, rad results Medical Desision Making - Independent Historian Additional History obtained from: Spouse, Wind Turbine Machinist/EMT - External Record(s) Reviewed Records reviewed as a part of evaluation & management: Inpatient - Diagnostic Testing Diagnostic test were ordered, analyzed, and reviewed by me: Yes Radiological Interpretation: Reviewed by me, Teleradiologist Report - Risk of complications The pt has a high risk of morbidity or mortality based on: Decision regarding hospitilization or escalation of hosp level of care - Departure Departure Disposition: Observation Clinical Impression: Right pulmonary infiltrate on CXR, Urinary tract infection, Hypoxia, Leukocytosis, Renal insufficiency, mild, Low grade fever Condition: Fair Critical Care Time: Yes Critical Care Time(excluding separately billable procedures): Critical 30-74 mins (50) Referrals: TANGELA FOY NP [NON-STAFF PHY W/O [facility], [facility]] - Follow up/PCP as directed
[2025-07-14 10:13] LABS: BASOPHIL % 0.1 % (0.2-1.2); Basophil (Absolute #) 0.02 x10^3/uL (0.01-0.08); Eosinophil (Absolute #) 0 x10^3/uL (0.04-0.54); Hematocrit 43.8 % (40.1-51.0); Hemoglobin 14.3 g/dL (13.7-17.5); IMMATURE GRAN # 0.12 x10^3u/L (0.001-0.031); IMMATURE GRAN % 0.7 % (0.001-0.429); Lymphocyte (Absolute #) 0.25 x10^3/uL (1.32-3.57); Mean Corpuscular Hemoglobin 29.4 pg (25.7-32.2); Mean Corpuscular Hgb Concent. 32.6 g/dL (32.3-36.5); Monocyte (Absolute #) 1.28 x10^3/uL (0.30-0.82); NUCLEATED RBC # 0.00 x10^3u/L (0.00-0.012); NUCLEATED RBC % 0.0 % (0.00-0.2); Platelet Count 202 x10^3/uL (163-337); Red Blood Count 4.86 x10^6/uL (4.63-6.08); White Blood Count 16.2 x10^3/uL (4.23-9.07)
[2025-07-14 10:24] LABS: Glucose, Urine Negative (Negative); Protein,Urine Dip 100 (Negative); WBC 51-100 /HPF (0-5)
[2025-07-14 10:29] LABS: INR 1.15 (0.8-3.0); PROTIME 12.8 SECONDS (9.4-12.5)
--- NOTE | 2025-07-14 10:43 | XRAY ---
Indication: Fever. Comparison: August 30, 2023 Portable chest demonstrates new inferior right upper lobe pneumonic infiltrate without large effusion. Remaining heart and left lung normal. Bony thorax intact.
[2025-07-14 10:46] LABS: Calcium 9.2 mg/dL (8.4-10.2); Carbon Dioxide 25.0 mmol/L (22-30); Creatinine 1 2.12 mg/dL (0.66-1.25); EST GLOMERULAR FILTRATION RATE 31.3 ML/MIN; Glucose 134.0 mg/dL (74-106); NT PRO BNPII 407.0 pg/mL (<300); Potassium 3.5 mmol/L (3.5-5.1); SGOT/AST 39.0 U/L (17-59); SGPT/ALT 26.0 U/L (0-50); Total Protein 7.4 g/dL (6.3-8.2)
[2025-07-14 10:53] LABS: INFLUENZA A NEGATIVE (NEGATIVE); INFLUENZA B NEGATIVE (NEGATIVE); RESPIRATORY SYNCTIAL VIRUS NEGATIVE (NEGATIVE); SARS-CoV-2 Xpert Express NEGATIVE (NEGATIVE)
[2025-07-14 11:07] LABS: Slide Review 1 YES
[2025-07-14] MEDS ORDERED: ROCEPHIN 1 GM / 100 ML NaCl 1 GM/100 ML IVPB IV ONE (11:18)
[2025-07-14] MEDS: ROCEPHIN 1 GM / 100 ML NaCl 1 GM/100 ML IVPB IV ONE (11:21)
[2025-07-14] MEDS ORDERED: TYLENOL 325 MG ONE (13:07)
[2025-07-14] MEDS: TYLENOL 325 MG PO STA (13:08)
[2025-07-14] MEDS ORDERED: LOPRESSOR INJECTION IV ONE (13:17)
[2025-07-14] MEDS: LOPRESSOR INJECTION IV ONE (13:19)
[2025-07-14] MEDS ORDERED: ENOXAPARIN SODIUM SQ ONE (15:50)
[2025-07-14] MEDS: ENOXAPARIN SODIUM SQ ONE (15:54)
[2025-07-14] MEDS ORDERED: Zofran 4 MG/2 ML VIAL IV PRN (18:03)
[2025-07-14] MEDS ORDERED: VANCOMYCIN 1 GRAM/200 ML BAG 1 GM/200 ML PIGGYBACK IV SCH (18:45)
[2025-07-14] MEDS: PROVENTIL 2.5 MG/3 ML NEB IH SCH (19:07)
[2025-07-14] MEDS ORDERED: MAXIPIME 1 GM ONE (19:47)
[2025-07-14] MEDS: TYLENOL 325 MG PO PRN (19:51)
[2025-07-14] MEDS: MAXIPIME 1 GM** 1 G in Sodium Chloride 0.9% 100 ML IV STA (19:51)
[2025-07-14] MEDS: VANCOMYCIN 1.25 GM/250 ML BAG 1.25 GM/250 ML PIGGYBACK IV ONE (19:51)
[2025-07-15 05:29] LABS: BASOPHIL % 0.1 % (0.2-1.2); Basophil (Absolute #) 0.01 x10^3/uL (0.01-0.08); Eosinophil (Absolute #) 0 x10^3/uL (0.04-0.54); Hematocrit 37.7 % (40.1-51.0); Hemoglobin 12.6 g/dL (13.7-17.5); IMMATURE GRAN # 0.04 x10^3u/L (0.001-0.031); IMMATURE GRAN % 0.3 % (0.001-0.429); Lymphocyte (Absolute #) 0.29 x10^3/uL (1.32-3.57); Mean Corpuscular Hemoglobin 29.6 pg (25.7-32.2); Mean Corpuscular Hgb Concent. 33.4 g/dL (32.3-36.5); Monocyte (Absolute #) 0.65 x10^3/uL (0.30-0.82); NUCLEATED RBC # 0.00 x10^3u/L (0.00-0.012); NUCLEATED RBC % 0.0 % (0.00-0.2); Platelet Count 190 x10^3/uL (163-337); Red Blood Count 4.25 x10^6/uL (4.63-6.08); White Blood Count 11.7 x10^3/uL (4.23-9.07)
[2025-07-15 05:58] LABS: Calcium 8.8 mg/dL (8.4-10.2); Carbon Dioxide 24.0 mmol/L (22-30); Creatinine 1 1.91 mg/dL (0.66-1.25); EST GLOMERULAR FILTRATION RATE 35.4 ML/MIN; Glucose 115.0 mg/dL (74-106); NT PRO BNPII 1250.0 pg/mL (<300); Potassium 3.3 mmol/L (3.5-5.1); SGOT/AST 54.0 U/L (17-59); SGPT/ALT 31.0 U/L (0-50); Total Protein 6.1 g/dL (6.3-8.2)
[2025-07-15 07:11] VITALS: RESP 18
[2025-07-15] MEDS ORDERED: PHARMACY RENAL DOSING MC ONE (07:18)
[2025-07-15] MEDS ORDERED: ULTRAM 50 MG PO PRN (07:19)
--- NOTE | 2025-07-15 07:28 | PCM.HP ---
<SERENA SERRANO - Last Filed: 07/15/25 08:46> History of Present Illness - Chief Complaint Chief Complaint: pneumomia/sepsis/UTI Date: 07/15/25 History of Present Illness: is a 80 year old male with a pmhx of hypertension, hyperlipidemia, benign prostatic hyperplasia, and GERD who presented to the ED on 07/14/25 with fever, weakness, and hypoxia. Over the preceding week, he experienced fever, chills, intermittent nausea and vomiting without diarrhea, along with a marked decline in oral intake. On the night prior to admission, he became so weak he was unable to ambulate to the bathroom, instead crawling to reach it. The following morning, his assisted him to the restroom, during which he fell to the floor when attempting to sit. Unable to get him up, she called emergency medical services. On EMS arrival, oxygen saturation was 89% on room air, improving to 95% on 2 L nasal cannula. He also reports urinary frequency without dysuria. He denies cough, headache, dizziness, or pain. Upon arrival to ED, temperature was 103.3F and heart rate elevated. EKG showed sinus tachycardia with left axis deviation, QTc 433, and no acute ischemic changes. Initial labs revealed WBC 16.2, Na 134, BUN 136, creatinine 2.12 (baseline 1.3), lactic acid 2.2 - 1.4 after IV fluids, procalcitonin 5.33, and troponin 0.037-0.058. Chest X-ray demonstrated a new right upper-lobe infiltrate, consistent with pneumonia. Urinalysis was suspicious for infection, though urine culture has since shown no growth to date. COVID, influenza, RSV, and mononucleosis testing were all negative. He received IV fluids, acetaminophen, ceftriaxone, metoprolol, and enoxaparin, later transitioned to vancomycin and cefepime for broad-spectrum coverage. Repeat labs on 07/15 showed WBC 11.7, hemoglobin 12.6, potassium 3.3, creatinine 1.91, and BNP 12.50. He continued to have fever up to 102.6F overnight with persistent mild tachycardia and required 3 L nasal cannula to maintain oxygen saturations >92%. Despite ongoing fever, renal function and leukocytosis improved with therapy. Given sepsis secondary to pneumonia with hypoxia and DEXTER, and persistent fever despite antibiotics, the patient will be transferred to [facility] today for higher-level inpatient management. - Review of Systems Constitutional: Fever, Chills, Weakness Eyes: No Symptoms Ears, Nose, & Throat: No Symptoms Respiratory: Cough, Short Of Breath Cardiac: No Symptoms Abdominal/Gastrointestinal: No Symptoms Genitourinary Symptoms: Frequency Musculoskeletal: No Symptoms Skin: No Symptoms Neurological: No Symptoms Psychological: No Symptoms Endocrine: No Symptoms Hematologic/Lymphatic: No Symptoms Immunological/Allergic: No Symptoms Medications & Allergies Home Medications: Home Medication List Tamsulosin HCl 0.4 mg [Flomax 0.4 MG] 0.4 mg PO HS 10/22/20 [History Confirmed 07/14/25] Simvastatin 20Mg [Zocor 20Mg] 20 mg PO HS 01/01/21 [History Confirmed 07/14/25] Metoprolol Succinate 25 mg Xl* [Toprol-Xl 25MG Tablets] 25 mg PO DAILY 08/30/23 [History Confirmed 07/14/25] Tramadol HCl 50 mg [Ultram 50 mg] 50 mg PO Q6H PRN PRN 08/30/23 [History Confirmed 07/14/25] Valsartan/Hydrochlorothiazide [Valsartan-Hctz 320-12.5 mg Tab] 1 tab PO DAILY 08/30/23 [History Confirmed 07/14/25] Ferrous Sulfate 325 mg [Feosol 325 mg] 325 mg PO DAILY 30 Days #30 tablet 09/01/23 [Rx Confirmed 07/14/25] Pantoprazole 20 mg [Protonix 20MG Tablet] 20 mg PO BID 30 Days #60 tab 09/01/23 [Rx Confirmed 07/14/25] Acetaminophen 325 mg [Tylenol 325 mg] 650 mg PO Q4H PRN PRN tablet 07/15/25 [Rx] Albuterol 2.5 mg/3 ml Neb [Proventil 2.5 mg/3 ml Neb] 2.5 mg IH Q6HRT 07/15/25 [Rx] Cefepime HCl 1 gm [Maxipime 1 gm] 1 g IV Q12HT 07/15/25 [Rx] Enoxaparin Sodium [Enoxaparin Sodium] 40 mg SQ DAILY 07/15/25 [Rx] Methylprednisolone Sod Suc 40M [solu-MEDROL] 40 mg IV Q12HT 07/15/25 [Rx] NaCl 0.9% 1000 ml [Sodium Chloride 0.9% 1000 ML] See Rx Instructions .ROUTE .COMPLEX 07/15/25 [Rx] Vancomycin/Water For Inj (Peg) [Vancomycin 1 Gram/200 ml Bag] 1 gm IV Q24H22 iv piggy 07/15/25 [Rx] Allergies/Adverse Reactions: Allergies Allergy/AdvReac Type Severity Reaction Status Date / Time No Known Drug Allergies Allergy Verified 07/14/25 11:55 - Past Medical History Past Medical History: Yes Neurological History: No Pertinent History ENT History: Cataracts Cardiac History: High Cholesterol, Hypertension Respiratory History: No Pertinent History Endocrine Medical History: No Pertinent History Musculoskelatal History: No Pertinent History GI Medical History: No Pertinent History History: No Pertinent History Pyscho-Social History: No Pertinent History Male Reproductive Disorders: Other Comment: decreased urinary flow, enlarged prostate, hx of syncopal episode, hx of anemia- Remains true - Past Surgical History Past Surgical History: Yes Neuro Surgical History: No Pertinent History Cardiac History: No Pertinent History Respiratory Surgery: No Pertinent History GI Surgical History: Appendectomy Genitourinary Surgical Hx: No Pertinent History Musculskeletal Surgical Hx: Orthopedic Surgery Male Surgical History: No Pertinent History Other Surgical History: Rotator cuff repair left shoulder Significant Family History: heart disease, cancer, diabetes - Social History Smoking Status: Never smoker Exposure to second hand smoke: No Alcohol: None Drug Use: none - Social Determinants of Health Will the patient participate in the screening: Yes Do you worry about a steady place to live?: No Do you have any problems with any of the following?: No known problems In the past 12 months,have you had to go without utilities?: No Have you or anyone in your house had to go without enough: No Transportation Issues: No Has anyone in your support network made you feel unsafe?: No Does the patient want assistance with any of the above?: No - Physical Exam Vital Signs: Vital Signs - 24 hr Temp Pulse Resp BP BP Pulse Ox 07/15/25 07:09 77 18 91 L 07/15/25 04:00 102.6 F 93 H 24 119/61 90 L 07/15/25 01:03 82 18 93 L 07/14/25 23:53 98.2 F 85 24 111/57 91 L 07/14/25 19:30 103.0 F 95 H 26 H 136/63 91 L 07/14/25 19:07 89 16 92 L 07/14/25 18:15 99.7 F 97 H 18 123/96 97 07/14/25 18:03 99.7 F 97 H 18 123/96 87 L 07/14/25 17:30 132/58 07/14/25 17:00 88 139/68 95 07/14/25 16:30 90 23 137/72 93 L 07/14/25 16:01 89 25 H 126/58 07/14/25 15:30 90 15 111/62 07/14/25 15:00 82 30 H 117/62 95 07/14/25 14:30 80 30 H 104/53 94 L 07/14/25 14:00 89 27 H 109/48 93 L 07/14/25 13:30 89 36 H 133/65 94 L 07/14/25 13:00 103.3 F 99 H 36 H 145/71 94 L 07/14/25 12:30 100 H 32 H 143/78 07/14/25 12:00 99 H 38 H 126/75 92 L 07/14/25 11:30 94 H 33 H 135/65 07/14/25 11:00 98 H 35 H 141/66 07/14/25 10:30 99 H 5 L 145/64 94 L 07/14/25 10:29 103 H 29 H 07/14/25 10:20 99 H 29 H 91 L 07/14/25 10:10 101 H 13 92 L 07/14/25 10:01 103 H 30 H 07/14/25 09:46 89 L 07/14/25 09:41 100.1 F 100 H 22 140/63 93 L 07/14/25 09:30 104 H 18 140/63 General Appearance: no apparent distress Neurologic Exam: alert, oriented x 3, cooperative Eye Exam: PERRL/EOMI Ears, Nose, Throat Exam: normal ENT inspection Neck Exam: normal inspection Respiratory Exam: crackles/rales Cardiovascular Exam: regular rate/rhythm, normal heart sounds Gastrointestinal/Abdomen Exam: soft, normal bowel sounds Rectal Exam: deferred Back Exam: normal inspection Extremity Exam: normal inspection Skin Exam: normal color Results - Labs Lab/Micro Results: Lab Results-Last 24 Hours 07/14/25 07/14/25 07/14/25 Range/Units 09:41 09:46 10:07 WBC (4.23-9.07) x10^3/uL RBC (4.63-6.08) x10^6/uL Hgb (13.7-17.5) g/dL Hct (40.1-51.0) % MCV (79.0-92.2) fL MCH (25.7-32.2) pg MCHC (32.3-36.5) g/dL RDW (11.6-14.4) % Plt Count (163-337) x10^3/uL MPV (9.4-12.4) fL Gran % (34.0-67.9) % Immature Gran % (Auto) (0.001-0.429) % Nucleat RBC Rel Count (0.00-0.2) % Eos # (Auto) (0.04-0.54) x10^3/uL Immature Gran # (Auto) (0.001-0.031) x10^3u/L Absolute Lymphs (auto) (1.32-3.57) x10^3/uL Absolute Monos (auto) (0.30-0.82) x10^3/uL Absolute Nucleated RBC (0.00-0.012) x10^3u/L Lymphocytes % (21.8-53.1) % Monocytes % (5.3-12.2) % Eosinophils % (0.8-7.0) % Basophils % (0.2-1.2) % Absolute Granulocytes (1.78-5.38) x10^3/uL Basophils # (0.01-0.08) x10^3/uL PT (9.4-12.5) SECONDS INR (0.8-3.0) Sodium 134 L (135-145) mmol/L Potassium 3.5 (3.5-5.1) mmol/L Chloride 102 (98-107) mmol/L Carbon Dioxide 25 (22-30) mmol/L Anion Gap 10.8 (5-15) MEQ/L BUN 36 H (9-20) mg/dL Creatinine 2.12 H (0.66-1.25) mg/dL Estimated GFR 31.3 ML/MIN Glucose 134 H (74-106) mg/dL Lactic Acid 2.2 H (0.4-2.0) Calcium 9.2 (8.4-10.2) mg/dL Magnesium 2.1 (1.6-2.3) mg/dL Total Bilirubin 1.40 H (0.2-1.3) mg/dL AST 39 (17-59) U/L ALT 26 (0-50) U/L Alkaline Phosphatase 63 (38-126) U/L Troponin I (0.000-0.033) ng/mL NT-Pro-B Natriuret Pep 407 (<300) pg/mL Serum Total Protein 7.4 (6.3-8.2) g/dL Albumin 4.0 (3.5-5.0) g/dL Procalcitonin 5.330 H* (0.030-0.080) ng/mL Urine Color Dark Yellow (Yellow) Urine Appearance Clear (Clear) Urine pH 6.0 (4.6-8.0) Ur Specific Sawyer 1.020 (1.005-1.030) Urine Protein 100 A (Negative) Urine Glucose (UA) Negative (Negative) mg/dL Urine Ketones Trace A (Negative) Urine Blood Moderate A (Negative) Urine Nitrite Negative (Negative) Urine Bilirubin Small A (Negative) Urine Urobilinogen 2.0 A (0.2) mg/dL Ur Leukocyte Esterase Moderate A (Negative) U Hyaline Cast (Auto) 3-5 A (0-2) /LPF Urine Microscopic RBC 3-5 (0-5) /HPF Urine Microscopic WBC 51-100 A (0-5) /HPF Ur Epithelial Cells Few (None Seen) /HPF Urine Bacteria Rare A (None Seen) /HPF Urine Culture Reflexed YES (NO) Monoscreen (NEGATIVE) Influenza Type A Ag (NEGATIVE) Influenza Type B Ag (NEGATIVE) RSV (PCR) (NEGATIVE) SARS-CoV-2 (PCR) (NEGATIVE) Slides for Path Review 07/14/25 07/14/25 07/14/25 Range/Units 10:07 10:07 10:07 WBC (4.23-9.07) x10^3/uL RBC (4.63-6.08) x10^6/uL Hgb (13.7-17.5) g/dL Hct (40.1-51.0) % MCV (79.0-92.2) fL MCH (25.7-32.2) pg MCHC (32.3-36.5) g/dL RDW (11.6-14.4) % Plt Count (163-337) x10^3/uL MPV (9.4-12.4) fL Gran % (34.0-67.9) % Immature Gran % (Auto) (0.001-0.429) % Nucleat RBC Rel Count (0.00-0.2) % Eos # (Auto) (0.04-0.54) x10^3/uL Immature Gran # (Auto) (0.001-0.031) x10^3u/L Absolute Lymphs (auto) (1.32-3.57) x10^3/uL Absolute Monos (auto) (0.30-0.82) x10^3/uL Absolute Nucleated RBC (0.00-0.012) x10^3u/L Lymphocytes % (21.8-53.1) % Monocytes % (5.3-12.2) % Eosinophils % (0.8-7.0) % Basophils % (0.2-1.2) % Absolute Granulocytes (1.78-5.38) x10^3/uL Basophils # (0.01-0.08) x10^3/uL PT 12.8 H (9.4-12.5) SECONDS INR 1.15 (0.8-3.0) Sodium (135-145) mmol/L Potassium (3.5-5.1) mmol/L Chloride (98-107) mmol/L Carbon Dioxide (22-30) mmol/L Anion Gap (5-15) MEQ/L BUN (9-20) mg/dL Creatinine (0.66-1.25) mg/dL Estimated GFR ML/MIN Glucose (74-106) mg/dL Lactic Acid (0.4-2.0) Calcium (8.4-10.2) mg/dL Magnesium (1.6-2.3) mg/dL Total Bilirubin (0.2-1.3) mg/dL AST (17-59) U/L ALT (0-50) U/L Alkaline Phosphatase (38-126) U/L Troponin I 0.037 H* (0.000-0.033) ng/mL NT-Pro-B Natriuret Pep (<300) pg/mL Serum Total Protein (6.3-8.2) g/dL Albumin (3.5-5.0) g/dL Procalcitonin (0.030-0.080) ng/mL Urine Color (Yellow) Urine Appearance (Clear) Urine pH (4.6-8.0) Ur Specific Sawyer (1.005-1.030) Urine Protein (Negative) Urine Glucose (UA) (Negative) mg/dL Urine Ketones (Negative) Urine Blood (Negative) Urine Nitrite (Negative) Urine Bilirubin (Negative) Urine Urobilinogen (0.2) mg/dL Ur Leukocyte Esterase (Negative) U Hyaline Cast (Auto) (0-2) /LPF Urine Microscopic RBC (0-5) /HPF Urine Microscopic WBC (0-5) /HPF Ur Epithelial Cells (None Seen) /HPF Urine Bacteria (None Seen) /HPF Urine Culture Reflexed (NO) Monoscreen NEGATIVE (NEGATIVE) Influenza Type A Ag (NEGATIVE) Influenza Type B Ag (NEGATIVE) RSV (PCR) (NEGATIVE) SARS-CoV-2 (PCR) (NEGATIVE) Slides for Path Review 07/14/25 07/14/25 07/14/25 Range/Units 10:09 10:10 12:25 WBC 16.2 H (4.23-9.07) x10^3/uL RBC 4.86 (4.63-6.08) x10^6/uL Hgb 14.3 (13.7-17.5) g/dL Hct 43.8 (40.1-51.0) % MCV 90.1 (79.0-92.2) fL MCH 29.4 (25.7-32.2) pg MCHC 32.6 (32.3-36.5) g/dL RDW 12.2 (11.6-14.4) % Plt Count 202 (163-337) x10^3/uL MPV 10.5 (9.4-12.4) fL Gran % 89.8 H (34.0-67.9) % Immature Gran % (Auto) 0.7 H (0.001-0.429) % Nucleat RBC Rel Count 0.0 (0.00-0.2) % Eos # (Auto) 0 L (0.04-0.54) x10^3/uL Immature Gran # (Auto) 0.12 H (0.001-0.031) x10^3u/L Absolute Lymphs (auto) 0.25 L (1.32-3.57) x10^3/uL Absolute Monos (auto) 1.28 H (0.30-0.82) x10^3/uL Absolute Nucleated RBC 0.00 (0.00-0.012) x10^3u/L Lymphocytes % 1.5 L (21.8-53.1) % Monocytes % 7.9 (5.3-12.2) % Eosinophils % 0.0 L (0.8-7.0) % Basophils % 0.1 L (0.2-1.2) % Absolute Granulocytes 14.51 H (1.78-5.38) x10^3/uL Basophils # 0.02 (0.01-0.08) x10^3/uL PT (9.4-12.5) SECONDS INR (0.8-3.0) Sodium (135-145) mmol/L Potassium (3.5-5.1) mmol/L Chloride (98-107) mmol/L Carbon Dioxide (22-30) mmol/L Anion Gap (5-15) MEQ/L BUN (9-20) mg/dL Creatinine (0.66-1.25) mg/dL Estimated GFR ML/MIN Glucose (74-106) mg/dL Lactic Acid 1.4 (0.4-2.0) Calcium (8.4-10.2) mg/dL Magnesium (1.6-2.3) mg/dL Total Bilirubin (0.2-1.3) mg/dL AST (17-59) U/L ALT (0-50) U/L Alkaline Phosphatase (38-126) U/L Troponin I (0.000-0.033) ng/mL NT-Pro-B Natriuret Pep (<300) pg/mL Serum Total Protein (6.3-8.2) g/dL Albumin (3.5-5.0) g/dL Procalcitonin (0.030-0.080) ng/mL Urine Color (Yellow) Urine Appearance (Clear) Urine pH (4.6-8.0) Ur Specific Sawyer (1.005-1.030) Urine Protein (Negative) Urine Glucose (UA) (Negative) mg/dL Urine Ketones (Negative) Urine Blood (Negative) Urine Nitrite (Negative) Urine Bilirubin (Negative) Urine Urobilinogen (0.2) mg/dL Ur Leukocyte Esterase (Negative) U Hyaline Cast (Auto) (0-2) /LPF Urine Microscopic RBC (0-5) /HPF Urine Microscopic WBC (0-5) /HPF Ur Epithelial Cells (None Seen) /HPF Urine Bacteria (None Seen) /HPF Urine Culture Reflexed (NO) Monoscreen (NEGATIVE) Influenza Type A Ag NEGATIVE (NEGATIVE) Influenza Type B Ag NEGATIVE (NEGATIVE) RSV (PCR) NEGATIVE (NEGATIVE) SARS-CoV-2 (PCR) NEGATIVE (NEGATIVE) Slides for Path Review YES 07/14/25 07/14/25 07/15/25 Range/Units 14:15 20:55 05:15 WBC 11.7 H (4.23-9.07) x10^3/uL RBC 4.25 L (4.63-6.08) x10^6/uL Hgb 12.6 L (13.7-17.5) g/dL Hct 37.7 L (40.1-51.0) % MCV 88.7 (79.0-92.2) fL MCH 29.6 (25.7-32.2) pg MCHC 33.4 (32.3-36.5) g/dL RDW 12.7 (11.6-14.4) % Plt Count 190 (163-337) x10^3/uL MPV 10.8 (9.4-12.4) fL Gran % 91.5 H (34.0-67.9) % Immature Gran % (Auto) 0.3 (0.001-0.429) % Nucleat RBC Rel Count 0.0 (0.00-0.2) % Eos # (Auto) 0 L (0.04-0.54) x10^3/uL Immature Gran # (Auto) 0.04 H (0.001-0.031) x10^3u/L Absolute Lymphs (auto) 0.29 L (1.32-3.57) x10^3/uL Absolute Monos (auto) 0.65 (0.30-0.82) x10^3/uL Absolute Nucleated RBC 0.00 (0.00-0.012) x10^3u/L Lymphocytes % 2.5 L (21.8-53.1) % Monocytes % 5.6 (5.3-12.2) % Eosinophils % 0.0 L (0.8-7.0) % Basophils % 0.1 L (0.2-1.2) % Absolute Granulocytes 10.69 H (1.78-5.38) x10^3/uL Basophils # 0.01 (0.01-0.08) x10^3/uL PT (9.4-12.5) SECONDS INR (0.8-3.0) Sodium (135-145) mmol/L Potassium (3.5-5.1) mmol/L Chloride (98-107) mmol/L Carbon Dioxide (22-30) mmol/L Anion Gap (5-15) MEQ/L BUN (9-20) mg/dL Creatinine (0.66-1.25) mg/dL Estimated GFR ML/MIN Glucose (74-106) mg/dL Lactic Acid (0.4-2.0) Calcium (8.4-10.2) mg/dL Magnesium (1.6-2.3) mg/dL Total Bilirubin (0.2-1.3) mg/dL AST (17-59) U/L ALT (0-50) U/L Alkaline Phosphatase (38-126) U/L Troponin I 0.058 H* 0.056 H* (0.000-0.033) ng/mL NT-Pro-B Natriuret Pep (<300) pg/mL Serum Total Protein (6.3-8.2) g/dL Albumin (3.5-5.0) g/dL Procalcitonin (0.030-0.080) ng/mL Urine Color (Yellow) Urine Appearance (Clear) Urine pH (4.6-8.0) Ur Specific Sawyer (1.005-1.030) Urine Protein (Negative) Urine Glucose (UA) (Negative) mg/dL Urine Ketones (Negative) Urine Blood (Negative) Urine Nitrite (Negative) Urine Bilirubin (Negative) Urine Urobilinogen (0.2) mg/dL Ur Leukocyte Esterase (Negative) U Hyaline Cast (Auto) (0-2) /LPF Urine Microscopic RBC (0-5) /HPF Urine Microscopic WBC (0-5) /HPF Ur Epithelial Cells (None Seen) /HPF Urine Bacteria (None Seen) /HPF Urine Culture Reflexed (NO) Monoscreen (NEGATIVE) Influenza Type A Ag (NEGATIVE) Influenza Type B Ag (NEGATIVE) RSV (PCR) (NEGATIVE) SARS-CoV-2 (PCR) (NEGATIVE) Slides for Path Review 07/15/25 Range/Units 05:15 WBC (4.23-9.07) x10^3/uL RBC (4.63-6.08) x10^6/uL Hgb (13.7-17.5) g/dL Hct (40.1-51.0) % MCV (79.0-92.2) fL MCH (25.7-32.2) pg MCHC (32.3-36.5) g/dL RDW (11.6-14.4) % Plt Count (163-337) x10^3/uL MPV (9.4-12.4) fL Gran % (34.0-67.9) % Immature Gran % (Auto) (0.001-0.429) % Nucleat RBC Rel Count (0.00-0.2) % Eos # (Auto) (0.04-0.54) x10^3/uL Immature Gran # (Auto) (0.001-0.031) x10^3u/L Absolute Lymphs (auto) (1.32-3.57) x10^3/uL Absolute Monos (auto) (0.30-0.82) x10^3/uL Absolute Nucleated RBC (0.00-0.012) x10^3u/L Lymphocytes % (21.8-53.1) % Monocytes % (5.3-12.2) % Eosinophils % (0.8-7.0) % Basophils % (0.2-1.2) % Absolute Granulocytes (1.78-5.38) x10^3/uL Basophils # (0.01-0.08) x10^3/uL PT (9.4-12.5) SECONDS INR (0.8-3.0) Sodium 135 (135-145) mmol/L Potassium 3.3 L (3.5-5.1) mmol/L Chloride 107 (98-107) mmol/L Carbon Dioxide 24 (22-30) mmol/L Anion Gap 7.1 (5-15) MEQ/L BUN 36 H (9-20) mg/dL Creatinine 1.91 H (0.66-1.25) mg/dL Estimated GFR 35.4 ML/MIN Glucose 115 H (74-106) mg/dL Lactic Acid (0.4-2.0) Calcium 8.8 (8.4-10.2) mg/dL Magnesium (1.6-2.3) mg/dL Total Bilirubin 0.90 (0.2-1.3) mg/dL AST 54 (17-59) U/L ALT 31 (0-50) U/L Alkaline Phosphatase 56 (38-126) U/L Troponin I (0.000-0.033) ng/mL NT-Pro-B Natriuret Pep 1250 (<300) pg/mL Serum Total Protein 6.1 L (6.3-8.2) g/dL Albumin 3.1 L (3.5-5.0) g/dL Procalcitonin (0.030-0.080) ng/mL Urine Color (Yellow) Urine Appearance (Clear) Urine pH (4.6-8.0) Ur Specific Sawyer (1.005-1.030) Urine Protein (Negative) Urine Glucose (UA) (Negative) mg/dL Urine Ketones (Negative) Urine Blood (Negative) Urine Nitrite (Negative) Urine Bilirubin (Negative) Urine Urobilinogen (0.2) mg/dL Ur Leukocyte Esterase (Negative) U Hyaline Cast (Auto) (0-2) /LPF Urine Microscopic RBC (0-5) /HPF Urine Microscopic WBC (0-5) /HPF Ur Epithelial Cells (None Seen) /HPF Urine Bacteria (None Seen) /HPF Urine Culture Reflexed (NO) Monoscreen (NEGATIVE) Influenza Type A Ag (NEGATIVE) Influenza Type B Ag (NEGATIVE) RSV (PCR) (NEGATIVE) SARS-CoV-2 (PCR) (NEGATIVE) Slides for Path Review Microbiology 07/14/25 09:46 Urine Culture - Preliminary Catherized NO GROWTH TO DATE - Radiology Impressions Radiology Exams & Impressions: Radiology Procedures Category Date Time Status CHEST 1 VIEW (PORTABLE) Stat Exams 07/14/25 09:52 Completed - Other Procedures and Tests Respiratory Therapy 07/14/25 18:03 Oxygen Nasal Cannula 2 lpm 07/14/25 18:59 Respiratory Therapy Assessment DAILY 07/14/25 19:00 Incentive Spirometry UD Assessment/Plan (1) Sepsis Status: Acute Assessment & Plan: -Meets Sepsis-3 criteria with fever 103.3 F, tachycardia, leukocytosis 16.2 K, elevated lactate 2.2 - 1.4, and DEXTER (Cr 2.12 from 1.3) -WBC improving at 11.7 -Febrile overnight at 102.6 treated with tylenol now at 99.8 -Secondary to pneumonia/UTI -Imaging confirms new RUL pneumonia; urinalysis supports concurrent UTI currently no growth on Ucult- follow -Continue IV vancomycin + cefepime -Maintain MAP > 65 mmHg, monitor cultures, lactate trends, urine output, and renal -function. -Adjust antibiotics per culture results. -Supplemental oxygen for goal spo2 >92% -Nebs/INH -IVF (2) Acute on chronic kidney failure Status: Acute Assessment & Plan: -Cr 2.12 now at 1.91 from baseline 1.3, consistent with dehydration/sepsis. -Continue IVF, avoid nephrotoxins, monitor I/O, - repeat CMP, renally dose all medications Code(s): N17.9 - ACUTE KIDNEY FAILURE, UNSPECIFIED; N18.9 - CHRONIC KIDNEY DISEASE, UNSPECIFIED (3) UTI (urinary tract infection) Status: Acute Assessment & Plan: -see sepsis Code(s): N39.0 - URINARY TRACT INFECTION, SITE NOT SPECIFIED (4) Pneumonia Status: Acute Assessment & Plan: -see sepsis Code(s): J18.9 - PNEUMONIA, UNSPECIFIED ORGANISM (5) Acute hypoxic respiratory failure Status: Acute Assessment & Plan: -O2 saturation 89% RA, improving to 90% on 3 L NC. -Continue oxygen to maintain SpO2 > 92%, wean as tolerated. Repeat chest imaging and reassess respiratory effort. -Nebs/INH -solumedrol 40mg q12H Code(s): J96.01 - ACUTE RESPIRATORY FAILURE WITH HYPOXIA (6) Hypokalemia Status: Acute Assessment & Plan: -Potassium at 3.3- will replenish per protocol -Tele Code(s): E87.6 - HYPOKALEMIA (7) Troponin level elevated Status: Acute Assessment & Plan: -Troponin 0.037 - 0.058-0.056 without ECG ischemic changes or chest pain -most likely demand -Monitor telemetry, trend troponins, continue beta-nahum. Code(s): R79.89 - OTHER SPECIFIED ABNORMAL FINDINGS OF BLOOD CHEMISTRY (8) Hyponatremia Status: Acute Assessment & Plan: -Likely dilutional from sepsis and decreased intake. -Monitor electrolytes; correct gradually with IV fluids. Code(s): E87.1 - HYPO-OSMOLALITY AND HYPONATREMIA (9) HTN (hypertension) Status: Acute Assessment & Plan: -Continue home regimen as tolerated; hold antihypertensives if hypotension or DEXTER persists. Code(s): I10 - ESSENTIAL (PRIMARY) HYPERTENSION (10) HLD (hyperlipidemia) Status: Acute Assessment & Plan: -Continue statin therapy once oral intake resumes. Code(s): E78.5 - HYPERLIPIDEMIA, UNSPECIFIED (11) BPH (benign prostatic hyperplasia) Status: Acute Assessment & Plan: -Continue tamsulosin as tolerated; monitor urinary output and retention risk. Code(s): N40.0 - BENIGN PROSTATIC HYPERPLASIA WITHOUT LOWER URINRY TRACT SYMP (12) GERD (gastroesophageal reflux disease) Status: Acute Assessment & Plan: -Continue PPI; maintain aspiration precautions given current weakness and nausea. VTE: lovenox PPI: protonix Dispo: transfer to [place] today Code status: Full code Code(s): K21.9 - GASTRO-ESOPHAGEAL REFLUX DISEASE WITHOUT ESOPHAGITIS <BENNY DOWNING - Last Filed: 07/15/25 23:09> History of Present Illness - Chief Complaint History of Present Illness: is a 80 year old male. - Physical Exam Vital Signs: Vital Signs - 24 hr Temp Pulse Resp BP Pulse Ox 07/15/25 13:42 99.3 F 07/15/25 12:38 90 18 92 L 07/15/25 11:00 101.3 F 91 H 18 113/59 91 L 07/15/25 07:40 99.8 F 92 H 18 103/56 92 L 07/15/25 07:09 77 18 91 L 07/15/25 04:00 102.6 F 93 H 24 119/61 90 L 07/15/25 01:03 82 18 93 L 07/14/25 23:53 98.2 F 85 24 111/57 91 L Results - Labs Lab/Micro Results: Lab Results-Last 24 Hours 07/15/25 07/15/25 07/15/25 Range/Units 05:15 05:15 05:15 WBC 11.7 H (4.23-9.07) x10^3/uL RBC 4.25 L (4.63-6.08) x10^6/uL Hgb 12.6 L (13.7-17.5) g/dL Hct 37.7 L (40.1-51.0) % MCV 88.7 (79.0-92.2) fL MCH 29.6 (25.7-32.2) pg MCHC 33.4 (32.3-36.5) g/dL RDW 12.7 (11.6-14.4) % Plt Count 190 (163-337) x10^3/uL MPV 10.8 (9.4-12.4) fL Gran % 91.5 H (34.0-67.9) % Immature Gran % (Auto) 0.3 (0.001-0.429) % Nucleat RBC Rel Count 0.0 (0.00-0.2) % Eos # (Auto) 0 L (0.04-0.54) x10^3/uL Immature Gran # (Auto) 0.04 H (0.001-0.031) x10^3u/L Absolute Lymphs (auto) 0.29 L (1.32-3.57) x10^3/uL Absolute Monos (auto) 0.65 (0.30-0.82) x10^3/uL Absolute Nucleated RBC 0.00 (0.00-0.012) x10^3u/L Lymphocytes % 2.5 L (21.8-53.1) % Monocytes % 5.6 (5.3-12.2) % Eosinophils % 0.0 L (0.8-7.0) % Basophils % 0.1 L (0.2-1.2) % Absolute Granulocytes 10.69 H (1.78-5.38) x10^3/uL Basophils # 0.01 (0.01-0.08) x10^3/uL Sodium 135 (135-145) mmol/L Potassium 3.3 L (3.5-5.1) mmol/L Chloride 107 (98-107) mmol/L Carbon Dioxide 24 (22-30) mmol/L Anion Gap 7.1 (5-15) MEQ/L BUN 36 H (9-20) mg/dL Creatinine 1.91 H (0.66-1.25) mg/dL Estimated GFR 35.4 ML/MIN Glucose 115 H (74-106) mg/dL Calcium 8.8 (8.4-10.2) mg/dL Magnesium 2.1 (1.6-2.3) mg/dL Total Bilirubin 0.90 (0.2-1.3) mg/dL AST 54 (17-59) U/L ALT 31 (0-50) U/L Alkaline Phosphatase 56 (38-126) U/L Troponin I (0.000-0.033) ng/mL NT-Pro-B Natriuret Pep 1250 (<300) pg/mL Serum Total Protein 6.1 L (6.3-8.2) g/dL Albumin 3.1 L (3.5-5.0) g/dL Procalcitonin (0.030-0.080) ng/mL 07/15/25 07/15/25 07/15/25 Range/Units 07:50 12:02 16:03 WBC (4.23-9.07) x10^3/uL RBC (4.63-6.08) x10^6/uL Hgb (13.7-17.5) g/dL Hct (40.1-51.0) % MCV (79.0-92.2) fL MCH (25.7-32.2) pg MCHC (32.3-36.5) g/dL RDW (11.6-14.4) % Plt Count (163-337) x10^3/uL MPV (9.4-12.4) fL Gran % (34.0-67.9) % Immature Gran % (Auto) (0.001-0.429) % Nucleat RBC Rel Count (0.00-0.2) % Eos # (Auto) (0.04-0.54) x10^3/uL Immature Gran # (Auto) (0.001-0.031) x10^3u/L Absolute Lymphs (auto) (1.32-3.57) x10^3/uL Absolute Monos (auto) (0.30-0.82) x10^3/uL Absolute Nucleated RBC (0.00-0.012) x10^3u/L Lymphocytes % (21.8-53.1) % Monocytes % (5.3-12.2) % Eosinophils % (0.8-7.0) % Basophils % (0.2-1.2) % Absolute Granulocytes (1.78-5.38) x10^3/uL Basophils # (0.01-0.08) x10^3/uL Sodium (135-145) mmol/L Potassium 3.8 4.3 (3.5-5.1) mmol/L Chloride (98-107) mmol/L Carbon Dioxide (22-30) mmol/L Anion Gap (5-15) MEQ/L BUN (9-20) mg/dL Creatinine (0.66-1.25) mg/dL Estimated GFR ML/MIN Glucose (74-106) mg/dL Calcium (8.4-10.2) mg/dL Magnesium (1.6-2.3) mg/dL Total Bilirubin (0.2-1.3) mg/dL AST (17-59) U/L ALT (0-50) U/L Alkaline Phosphatase (38-126) U/L Troponin I 0.045 H* (0.000-0.033) ng/mL NT-Pro-B Natriuret Pep (<300) pg/mL Serum Total Protein (6.3-8.2) g/dL Albumin (3.5-5.0) g/dL Procalcitonin 8.320 H* (0.030-0.080) ng/mL Microbiology 07/14/25 09:46 Urine Culture - Preliminary Catherized NO GROWTH TO DATE - Radiology Impressions Radiology Exams & Impressions: Radiology Procedures Category Date Time Status CHEST 1 VIEW (PORTABLE) Stat Exams 07/14/25 09:52 Completed CHEST WITHOUT CONTRAST [CT] Stat Exams 07/15/25 09:58 Completed ARTIS Encounter - ARTIS Encounter Attestation ARTIS Encounter Attestation: "IharacelipersonallyseenandexaminedPITTS,BETH DONNA andhavediscussed pertinent aspects of their care with Serena Nova agree with the history, physical exam (any modifications based on my personal exam will be noted below), assessment, and plan as outlined in original note. Please see immediately below for my summary of findings and additional assessment and plan along with any meaningful corrections/explanations to the Subjective/Objective portions of the ARTIS note will be noted." My portion of the encounter took place via telemedicine. -Patient admitted with sepsis secondary to pneumonia, DEXTER and positive trop likely demand ischemia. Transfer initiated by ER to [place] however patient could not be transferred until today. Family still wanting transfer despite patient being stable/improving. Patient eventually transferred to [facility]
[2025-07-15] MEDS: Klor Con PO SCH (07:46)
[2025-07-15 08:40] LABS: TROPONIN 0.045 ng/mL (0.000-0.033)
[2025-07-15] MEDS: ENOXAPARIN SODIUM SQ SCH (09:13)
[2025-07-15] MEDS: MAXIPIME 1 GM** 1 G in Sodium Chloride 0.9% 100 ML IV SCH (09:15)
[2025-07-15] MEDS: FEOSOL 325 MG PO SCH (09:19)
[2025-07-15] MEDS: solu-MEDROL 40 MG, Sterile H2O 10 ml 1 ML IV SCH (09:20)
[2025-07-15] MEDS: Toprol-Xl 25MG Tablets PO SCH (09:24)
[2025-07-15] MEDS ORDERED: Protonix 20MG Tablet PO SCH (10:00)
--- NOTE | 2025-07-15 10:25 | PCM.DS ---
Discharge Summary Date of Admission: 07/14/25 18:02 Date of Discharge: 07/15/25 Admitting Physician: BENNY DOWNING MD Primary Care Provider: JUSTIN BROWNE MD Allergies Allergies No Known Drug Allergies Allergy (Verified 07/14/25 11:55) Hospital Summary - Hospital Course Hospital Course: Mr. Nieves is a 80-year-old male with a history of hypertension, hyperlipidemia, benign prostatic hyperplasia, and GERD who was admitted on 07/14/25 for observation after presenting with progressive weakness, fever, and hypoxia. He had been ill for approximately one week with intermittent nausea and vomiting and minimal oral intake, culminating in profound weakness and a fall at home. EMS found him hypoxic at 89% on room air, improving to 95% on 2 L nasal cannula. In the ED, he was febrile to 103.3F, tachycardic, and dehydrated in appearance. EKG revealed sinus tachycardia with left axis deviation, QTc 433, and no acute ischemic changes. Initial labs showed WBC 16.2, Na 134, BUN 136, creatinine 2.12 (baseline 1.3), lactic acid 2.2 ? 1.4 after fluids, procalcitonin 5.33, and troponin 0.037 ? 0.058. Chest X-ray demonstrated a new right upper-lobe infiltrate, consistent with pneumonia. Urinalysis was suspicious for infection, but urine culture has shown no growth to date. COVID, influenza, RSV, and mononucleosis were all negative. During observation, the patient was treated with IV fluids, acetaminophen, ceftriaxone, metoprolol, and enoxaparin, then transitioned to vancomycin and cefepime for broader coverage per sepsis protocol. His lactate normalized, renal function improved, and hemodynamics stabilized, though he remained weak and intermittently febrile. Repeat labs on 07/15 showed WBC 11.7, hemoglobin 12.6, potassium 3.3, creatinine 1.91 (down from 2.12), and BNP 12.50. Potassium will be repleted prior to transfer. Overnight, he continued to have a fever of 102.6F and mild tachycardia, now requiring 3 L nasal cannula to maintain oxygen saturations >92%. No hemodynamic instability or respiratory distress noted. He continues to receive vancomycin and cefepime, with cultures pending. Given ongoing sepsis from presumed pneumonia with improving renal function but persistent fever and oxygen needs, the patient will be transferred today to [facility] for higher-level inpatient management and infectious disease evaluation. - Vitals & Intake/Output Vital Signs: Vital Signs Temperature 99.8 F 07/15/25 07:40 Pulse Rate 92 H 07/15/25 07:40 Respiratory Rate 18 07/15/25 07:40 Blood Pressure 103/56 07/15/25 07:40 O2 Sat by Pulse Oximetry 92 L 07/15/25 07:40 Intake & Output: Intake & Output 07/12/25 07/13/25 07/14/25 07/15/25 11:59 11:59 11:59 11:59 Intake Total 1510 Output Total 300 Balance 1210 Weight 80.9 kg 80.3 kg - Lab Result Diagrams: 07/15/25 05:15 07/15/25 05:15 Lab Results-Last 24 Hrs: Lab Results-Last 24 Hours 07/14/25 07/14/25 07/14/25 Range/Units 09:41 09:46 10:07 WBC (4.23-9.07) x10^3/uL RBC (4.63-6.08) x10^6/uL Hgb (13.7-17.5) g/dL Hct (40.1-51.0) % MCV (79.0-92.2) fL MCH (25.7-32.2) pg MCHC (32.3-36.5) g/dL RDW (11.6-14.4) % Plt Count (163-337) x10^3/uL MPV (9.4-12.4) fL Gran % (34.0-67.9) % Immature Gran % (Auto) (0.001-0.429) % Nucleat RBC Rel Count (0.00-0.2) % Eos # (Auto) (0.04-0.54) x10^3/uL Immature Gran # (Auto) (0.001-0.031) x10^3u/L Absolute Lymphs (auto) (1.32-3.57) x10^3/uL Absolute Monos (auto) (0.30-0.82) x10^3/uL Absolute Nucleated RBC (0.00-0.012) x10^3u/L Lymphocytes % (21.8-53.1) % Monocytes % (5.3-12.2) % Eosinophils % (0.8-7.0) % Basophils % (0.2-1.2) % Absolute Granulocytes (1.78-5.38) x10^3/uL Basophils # (0.01-0.08) x10^3/uL PT (9.4-12.5) SECONDS INR (0.8-3.0) Sodium 134 L (135-145) mmol/L Potassium 3.5 (3.5-5.1) mmol/L Chloride 102 (98-107) mmol/L Carbon Dioxide 25 (22-30) mmol/L Anion Gap 10.8 (5-15) MEQ/L BUN 36 H (9-20) mg/dL Creatinine 2.12 H (0.66-1.25) mg/dL Estimated GFR 31.3 ML/MIN Glucose 134 H (74-106) mg/dL Lactic Acid 2.2 H (0.4-2.0) Calcium 9.2 (8.4-10.2) mg/dL Magnesium 2.1 (1.6-2.3) mg/dL Total Bilirubin 1.40 H (0.2-1.3) mg/dL AST 39 (17-59) U/L ALT 26 (0-50) U/L Alkaline Phosphatase 63 (38-126) U/L Troponin I (0.000-0.033) ng/mL NT-Pro-B Natriuret Pep 407 (<300) pg/mL Serum Total Protein 7.4 (6.3-8.2) g/dL Albumin 4.0 (3.5-5.0) g/dL Procalcitonin 5.330 H* (0.030-0.080) ng/mL Urine Color Dark Yellow (Yellow) Urine Appearance Clear (Clear) Urine pH 6.0 (4.6-8.0) Ur Specific [place] 1.020 (1.005-1.030) Urine Protein 100 A (Negative) Urine Glucose (UA) Negative (Negative) mg/dL Urine Ketones Trace A (Negative) Urine Blood Moderate A (Negative) Urine Nitrite Negative (Negative) Urine Bilirubin Small A (Negative) Urine Urobilinogen 2.0 A (0.2) mg/dL Ur Leukocyte Esterase Moderate A (Negative) U Hyaline Cast (Auto) 3-5 A (0-2) /LPF Urine Microscopic RBC 3-5 (0-5) /HPF Urine Microscopic WBC 51-100 A (0-5) /HPF Ur Epithelial Cells Few (None Seen) /HPF Urine Bacteria Rare A (None Seen) /HPF Urine Culture Reflexed YES (NO) Monoscreen (NEGATIVE) Influenza Type A Ag (NEGATIVE) Influenza Type B Ag (NEGATIVE) RSV (PCR) (NEGATIVE) SARS-CoV-2 (PCR) (NEGATIVE) Slides for Path Review 07/14/25 07/14/25 07/14/25 Range/Units 10:07 10:07 10:07 WBC (4.23-9.07) x10^3/uL RBC (4.63-6.08) x10^6/uL Hgb (13.7-17.5) g/dL Hct (40.1-51.0) % MCV (79.0-92.2) fL MCH (25.7-32.2) pg MCHC (32.3-36.5) g/dL RDW (11.6-14.4) % Plt Count (163-337) x10^3/uL MPV (9.4-12.4) fL Gran % (34.0-67.9) % Immature Gran % (Auto) (0.001-0.429) % Nucleat RBC Rel Count (0.00-0.2) % Eos # (Auto) (0.04-0.54) x10^3/uL Immature Gran # (Auto) (0.001-0.031) x10^3u/L Absolute Lymphs (auto) (1.32-3.57) x10^3/uL Absolute Monos (auto) (0.30-0.82) x10^3/uL Absolute Nucleated RBC (0.00-0.012) x10^3u/L Lymphocytes % (21.8-53.1) % Monocytes % (5.3-12.2) % Eosinophils % (0.8-7.0) % Basophils % (0.2-1.2) % Absolute Granulocytes (1.78-5.38) x10^3/uL Basophils # (0.01-0.08) x10^3/uL PT 12.8 H (9.4-12.5) SECONDS INR 1.15 (0.8-3.0) Sodium (135-145) mmol/L Potassium (3.5-5.1) mmol/L Chloride (98-107) mmol/L Carbon Dioxide (22-30) mmol/L Anion Gap (5-15) MEQ/L BUN (9-20) mg/dL Creatinine (0.66-1.25) mg/dL Estimated GFR ML/MIN Glucose (74-106) mg/dL Lactic Acid (0.4-2.0) Calcium (8.4-10.2) mg/dL Magnesium (1.6-2.3) mg/dL Total Bilirubin (0.2-1.3) mg/dL AST (17-59) U/L ALT (0-50) U/L Alkaline Phosphatase (38-126) U/L Troponin I 0.037 H* (0.000-0.033) ng/mL NT-Pro-B Natriuret Pep (<300) pg/mL Serum Total Protein (6.3-8.2) g/dL Albumin (3.5-5.0) g/dL Procalcitonin (0.030-0.080) ng/mL Urine Color (Yellow) Urine Appearance (Clear) Urine pH (4.6-8.0) Ur Specific [place] (1.005-1.030) Urine Protein (Negative) Urine Glucose (UA) (Negative) mg/dL Urine Ketones (Negative) Urine Blood (Negative) Urine Nitrite (Negative) Urine Bilirubin (Negative) Urine Urobilinogen (0.2) mg/dL Ur Leukocyte Esterase (Negative) U Hyaline Cast (Auto) (0-2) /LPF Urine Microscopic RBC (0-5) /HPF Urine Microscopic WBC (0-5) /HPF Ur Epithelial Cells (None Seen) /HPF Urine Bacteria (None Seen) /HPF Urine Culture Reflexed (NO) Monoscreen NEGATIVE (NEGATIVE) Influenza Type A Ag (NEGATIVE) Influenza Type B Ag (NEGATIVE) RSV (PCR) (NEGATIVE) SARS-CoV-2 (PCR) (NEGATIVE) Slides for Path Review 07/14/25 07/14/25 07/14/25 Range/Units 10:09 10:10 12:25 WBC (4.23-9.07) x10^3/uL RBC (4.63-6.08) x10^6/uL Hgb (13.7-17.5) g/dL Hct (40.1-51.0) % MCV (79.0-92.2) fL MCH (25.7-32.2) pg MCHC (32.3-36.5) g/dL RDW (11.6-14.4) % Plt Count (163-337) x10^3/uL MPV (9.4-12.4) fL Gran % (34.0-67.9) % Immature Gran % (Auto) (0.001-0.429) % Nucleat RBC Rel Count (0.00-0.2) % Eos # (Auto) (0.04-0.54) x10^3/uL Immature Gran # (Auto) (0.001-0.031) x10^3u/L Absolute Lymphs (auto) (1.32-3.57) x10^3/uL Absolute Monos (auto) (0.30-0.82) x10^3/uL Absolute Nucleated RBC (0.00-0.012) x10^3u/L Lymphocytes % (21.8-53.1) % Monocytes % (5.3-12.2) % Eosinophils % (0.8-7.0) % Basophils % (0.2-1.2) % Absolute Granulocytes (1.78-5.38) x10^3/uL Basophils # (0.01-0.08) x10^3/uL PT (9.4-12.5) SECONDS INR (0.8-3.0) Sodium (135-145) mmol/L Potassium (3.5-5.1) mmol/L Chloride (98-107) mmol/L Carbon Dioxide (22-30) mmol/L Anion Gap (5-15) MEQ/L BUN (9-20) mg/dL Creatinine (0.66-1.25) mg/dL Estimated GFR ML/MIN Glucose (74-106) mg/dL Lactic Acid 1.4 (0.4-2.0) Calcium (8.4-10.2) mg/dL Magnesium (1.6-2.3) mg/dL Total Bilirubin (0.2-1.3) mg/dL AST (17-59) U/L ALT (0-50) U/L Alkaline Phosphatase (38-126) U/L Troponin I (0.000-0.033) ng/mL NT-Pro-B Natriuret Pep (<300) pg/mL Serum Total Protein (6.3-8.2) g/dL Albumin (3.5-5.0) g/dL Procalcitonin (0.030-0.080) ng/mL Urine Color (Yellow) Urine Appearance (Clear) Urine pH (4.6-8.0) Ur Specific [place] (1.005-1.030) Urine Protein (Negative) Urine Glucose (UA) (Negative) mg/dL Urine Ketones (Negative) Urine Blood (Negative) Urine Nitrite (Negative) Urine Bilirubin (Negative) Urine Urobilinogen (0.2) mg/dL Ur Leukocyte Esterase (Negative) U Hyaline Cast (Auto) (0-2) /LPF Urine Microscopic RBC (0-5) /HPF Urine Microscopic WBC (0-5) /HPF Ur Epithelial Cells (None Seen) /HPF Urine Bacteria (None Seen) /HPF Urine Culture Reflexed (NO) Monoscreen (NEGATIVE) Influenza Type A Ag NEGATIVE (NEGATIVE) Influenza Type B Ag NEGATIVE (NEGATIVE) RSV (PCR) NEGATIVE (NEGATIVE) SARS-CoV-2 (PCR) NEGATIVE (NEGATIVE) Slides for Path Review YES 07/14/25 07/14/25 07/15/25 Range/Units 14:15 20:55 05:15 WBC 11.7 H (4.23-9.07) x10^3/uL RBC 4.25 L (4.63-6.08) x10^6/uL Hgb 12.6 L (13.7-17.5) g/dL Hct 37.7 L (40.1-51.0) % MCV 88.7 (79.0-92.2) fL MCH 29.6 (25.7-32.2) pg MCHC 33.4 (32.3-36.5) g/dL RDW 12.7 (11.6-14.4) % Plt Count 190 (163-337) x10^3/uL MPV 10.8 (9.4-12.4) fL Gran % 91.5 H (34.0-67.9) % Immature Gran % (Auto) 0.3 (0.001-0.429) % Nucleat RBC Rel Count 0.0 (0.00-0.2) % Eos # (Auto) 0 L (0.04-0.54) x10^3/uL Immature Gran # (Auto) 0.04 H (0.001-0.031) x10^3u/L Absolute Lymphs (auto) 0.29 L (1.32-3.57) x10^3/uL Absolute Monos (auto) 0.65 (0.30-0.82) x10^3/uL Absolute Nucleated RBC 0.00 (0.00-0.012) x10^3u/L Lymphocytes % 2.5 L (21.8-53.1) % Monocytes % 5.6 (5.3-12.2) % Eosinophils % 0.0 L (0.8-7.0) % Basophils % 0.1 L (0.2-1.2) % Absolute Granulocytes 10.69 H (1.78-5.38) x10^3/uL Basophils # 0.01 (0.01-0.08) x10^3/uL PT (9.4-12.5) SECONDS INR (0.8-3.0) Sodium (135-145) mmol/L Potassium (3.5-5.1) mmol/L Chloride (98-107) mmol/L Carbon Dioxide (22-30) mmol/L Anion Gap (5-15) MEQ/L BUN (9-20) mg/dL Creatinine (0.66-1.25) mg/dL Estimated GFR ML/MIN Glucose (74-106) mg/dL Lactic Acid (0.4-2.0) Calcium (8.4-10.2) mg/dL Magnesium (1.6-2.3) mg/dL Total Bilirubin (0.2-1.3) mg/dL AST (17-59) U/L ALT (0-50) U/L Alkaline Phosphatase (38-126) U/L Troponin I 0.058 H* 0.056 H* (0.000-0.033) ng/mL NT-Pro-B Natriuret Pep (<300) pg/mL Serum Total Protein (6.3-8.2) g/dL Albumin (3.5-5.0) g/dL Procalcitonin (0.030-0.080) ng/mL Urine Color (Yellow) Urine Appearance (Clear) Urine pH (4.6-8.0) Ur Specific [place] (1.005-1.030) Urine Protein (Negative) Urine Glucose (UA) (Negative) mg/dL Urine Ketones (Negative) Urine Blood (Negative) Urine Nitrite (Negative) Urine Bilirubin (Negative) Urine Urobilinogen (0.2) mg/dL Ur Leukocyte Esterase (Negative) U Hyaline Cast (Auto) (0-2) /LPF Urine Microscopic RBC (0-5) /HPF Urine Microscopic WBC (0-5) /HPF Ur Epithelial Cells (None Seen) /HPF Urine Bacteria (None Seen) /HPF Urine Culture Reflexed (NO) Monoscreen (NEGATIVE) Influenza Type A Ag (NEGATIVE) Influenza Type B Ag (NEGATIVE) RSV (PCR) (NEGATIVE) SARS-CoV-2 (PCR) (NEGATIVE) Slides for Path Review 07/15/25 07/15/25 07/15/25 Range/Units 05:15 05:15 07:50 WBC (4.23-9.07) x10^3/uL RBC (4.63-6.08) x10^6/uL Hgb (13.7-17.5) g/dL Hct (40.1-51.0) % MCV (79.0-92.2) fL MCH (25.7-32.2) pg MCHC (32.3-36.5) g/dL RDW (11.6-14.4) % Plt Count (163-337) x10^3/uL MPV (9.4-12.4) fL Gran % (34.0-67.9) % Immature Gran % (Auto) (0.001-0.429) % Nucleat RBC Rel Count (0.00-0.2) % Eos # (Auto) (0.04-0.54) x10^3/uL Immature Gran # (Auto) (0.001-0.031) x10^3u/L Absolute Lymphs (auto) (1.32-3.57) x10^3/uL Absolute Monos (auto) (0.30-0.82) x10^3/uL Absolute Nucleated RBC (0.00-0.012) x10^3u/L Lymphocytes % (21.8-53.1) % Monocytes % (5.3-12.2) % Eosinophils % (0.8-7.0) % Basophils % (0.2-1.2) % Absolute Granulocytes (1.78-5.38) x10^3/uL Basophils # (0.01-0.08) x10^3/uL PT (9.4-12.5) SECONDS INR (0.8-3.0) Sodium 135 (135-145) mmol/L Potassium 3.3 L (3.5-5.1) mmol/L Chloride 107 (98-107) mmol/L Carbon Dioxide 24 (22-30) mmol/L Anion Gap 7.1 (5-15) MEQ/L BUN 36 H (9-20) mg/dL Creatinine 1.91 H (0.66-1.25) mg/dL Estimated GFR 35.4 ML/MIN Glucose 115 H (74-106) mg/dL Lactic Acid (0.4-2.0) Calcium 8.8 (8.4-10.2) mg/dL Magnesium 2.1 (1.6-2.3) mg/dL Total Bilirubin 0.90 (0.2-1.3) mg/dL AST 54 (17-59) U/L ALT 31 (0-50) U/L Alkaline Phosphatase 56 (38-126) U/L Troponin I 0.045 H* (0.000-0.033) ng/mL NT-Pro-B Natriuret Pep 1250 (<300) pg/mL Serum Total Protein 6.1 L (6.3-8.2) g/dL Albumin 3.1 L (3.5-5.0) g/dL Procalcitonin 8.320 H* (0.030-0.080) ng/mL Urine Color (Yellow) Urine Appearance (Clear) Urine pH (4.6-8.0) Ur Specific [place] (1.005-1.030) Urine Protein (Negative) Urine Glucose (UA) (Negative) mg/dL Urine Ketones (Negative) Urine Blood (Negative) Urine Nitrite (Negative) Urine Bilirubin (Negative) Urine Urobilinogen (0.2) mg/dL Ur Leukocyte Esterase (Negative) U Hyaline Cast (Auto) (0-2) /LPF Urine Microscopic RBC (0-5) /HPF Urine Microscopic WBC (0-5) /HPF Ur Epithelial Cells (None Seen) /HPF Urine Bacteria (None Seen) /HPF Urine Culture Reflexed (NO) Monoscreen (NEGATIVE) Influenza Type A Ag (NEGATIVE) Influenza Type B Ag (NEGATIVE) RSV (PCR) (NEGATIVE) SARS-CoV-2 (PCR) (NEGATIVE) Slides for Path Review Micro Results-Entire Visit: Microbiology 07/14/25 09:46 Urine Culture - Preliminary Catherized NO GROWTH TO DATE - Radiology Exams Ordered Rad Exams-Entire Visit: Radiology Procedures Category Date Time Status CHEST 1 VIEW (PORTABLE) Stat Exams 07/14/25 09:52 Completed CHEST WITHOUT CONTRAST [CT] Stat Exams 07/15/25 09:58 Ordered - Procedures and Test Procedures and Tests throughout Hospitalization: Therapy Orders & Screens 07/14/25 18:03 Oxygen Nasal Cannula 2 lpm Comment: Respiratory Therapy Consult ONCE Comment: Reason For Exam: 07/14/25 18:59 Respiratory Therapy Assessment DAILY Comment: Diagnosis: pneumomia 07/14/25 19:00 Incentive Spirometry UD Comment: Diagnosis: pneumomia Discharge Exam General Appearance: no apparent distress Neurologic Exam: alert, oriented x 3, cooperative Eye Exam: PERRL Ears, Nose, Throat Exam: normal ENT inspection Neck Exam: normal inspection Respiratory Exam: crackles/rales Cardiovascular Exam: regular rate/rhythm, normal heart sounds Gastrointestinal/Abdomen Exam: soft, normal bowel sounds Male Genitalia Exam: deferred Rectal Exam: deferred Back Exam: normal inspection Extremity Exam: normal inspection Skin Exam: normal color Final Diagnosis/Problem List - Final Discharge Diagnosis/Problem (1) Sepsis Current Visit: Yes Status: Acute Assessment & Plan: Fever 103.3- 102.6, WBC 16.2 -11.7, procalcitonin 5.33, lactate 2.2- 1.4. Chest X-ray confirmed RUL infiltrate; urine culture shows no growth to date. CT chest pending Continue IV vancomycin and cefepime . Continue IV hydration, monitor temperature and renal function, and repeat cultures if fevers persist. (2) Acute on chronic kidney failure Current Visit: No Status: Acute Assessment & Plan: Creatinine improved from 2.12 - 1.91 Maintain fluid balance, avoid nephrotoxins, continue renal dosing of antibiotics, monitor BMP daily. Code(s): N17.9 - ACUTE KIDNEY FAILURE, UNSPECIFIED; N18.9 - CHRONIC KIDNEY DISEASE, UNSPECIFIED (3) UTI (urinary tract infection) Current Visit: Yes Status: Acute Assessment & Plan: -UA suspicious on admission- currently with no growth, continue abx as above Code(s): N39.0 - URINARY TRACT INFECTION, SITE NOT SPECIFIED (4) Pneumonia Current Visit: Yes Status: Acute Assessment & Plan: see sepsis above Code(s): J18.9 - PNEUMONIA, UNSPECIFIED ORGANISM (5) Acute hypoxic respiratory failure Current Visit: Yes Status: Acute Assessment & Plan: O2 89% RA ? requiring 3 L NC to maintain SpO2 > 92%. Continue oxygen, wean as tolerated, monitor for increased work of breathing, repeat chest imaging after antibiotic course. Code(s): J96.01 - ACUTE RESPIRATORY FAILURE WITH HYPOXIA (6) Hypokalemia Current Visit: Yes Status: Acute Assessment & Plan: Likely secondary to IV fluids and poor intake. Replete potassium prior to transfer; monitor magnesium and renal function. Code(s): E87.6 - HYPOKALEMIA (7) Troponin level elevated Current Visit: Yes Status: Acute Assessment & Plan: Troponin 0.037- 0.058- 0.045 without ischemic ECG changes or chest pain. Continue telemetry monitoring. Maintain beta-nahum to reduce cardiac workload and oxygen demand. Trend troponins at [facility]. Avoid volume overload. Evaluate for ischemia if new symptoms develop. Code(s): R79.89 - OTHER SPECIFIED ABNORMAL FINDINGS OF BLOOD CHEMISTRY (8) Hyponatremia Current Visit: Yes Status: Acute Assessment & Plan: Likely dilutional from sepsis and dehydration. Continue IV fluids, monitor sodium, correct gradually Code(s): E87.1 - HYPO-OSMOLALITY AND HYPONATREMIA (9) HTN (hypertension) Current Visit: Yes Status: Acute Assessment & Plan: Continue home regimen as tolerated; hold if hypotension or worsening renal function. Code(s): I10 - ESSENTIAL (PRIMARY) HYPERTENSION (10) HLD (hyperlipidemia) Current Visit: Yes Status: Acute Assessment & Plan: Resume statin Code(s): E78.5 - HYPERLIPIDEMIA, UNSPECIFIED (11) BPH (benign prostatic hyperplasia) Current Visit: Yes Status: Acute Assessment & Plan: Continue tamsulosin; monitor urinary output. Code(s): N40.0 - BENIGN PROSTATIC HYPERPLASIA WITHOUT LOWER URINRY TRACT SYMP (12) GERD (gastroesophageal reflux disease) Current Visit: Yes Status: Acute Assessment & Plan: Continue PPI, maintain aspiration precautions. Condition at Transfer Febrile to 102.6F overnight HR mildly tachycardic, BP stable On 3 L nasal cannula with SpO2 94% WBC 11.7, Hgb 12.6, Cr 1.91, K 3.3 (to be repleted), BNP 1250 Alert, oriented, mild weakness, no distress CT chest pending Code(s): K21.9 - GASTRO-ESOPHAGEAL REFLUX DISEASE WITHOUT ESOPHAGITIS - Discharge Discharge Date: 07/15/25 Disposition: DC TO [facility] Condition: Fair Prescriptions: New Enoxaparin Sodium [Enoxaparin Sodium] 40 mg SQ DAILY Cefepime HCl 1 gm [Maxipime 1 gm] 1 g IV Q12HT Albuterol 2.5 mg/3 ml Neb [Proventil 2.5 mg/3 ml Neb] 2.5 mg IH Q6HRT NaCl 0.9% 1000 ml [Sodium Chloride 0.9% 1000 ML] See Rx Instructions .ROUTE .COMPLEX Methylprednisolone Sod Suc 40M [solu-MEDROL] 40 mg IV Q12HT Acetaminophen 325 mg [Tylenol 325 mg] 650 mg PO Q4H PRN PRN tablet PRN Reason: Pain, Fever, Headache Vancomycin/Water For Inj (Peg) [Vancomycin 1 Gram/200 ml Bag] 1 gm IV Q24H22 iv piggy Continue Tamsulosin HCl 0.4 mg [Flomax 0.4 MG] 0.4 mg PO HS Simvastatin 20Mg [Zocor 20Mg] 20 mg PO HS Valsartan/Hydrochlorothiazide [Valsartan-Hctz 320-12.5 mg Tab] 1 tab PO DAILY Metoprolol Succinate 25 mg Xl* [Toprol-Xl 25MG Tablets] 25 mg PO DAILY Tramadol HCl 50 mg [Ultram 50 mg] 50 mg PO Q6H PRN PRN PRN Reason: Pain Ferrous Sulfate 325 mg [Feosol 325 mg] 325 mg PO DAILY 30 Days #30 tablet Pantoprazole 20 mg [Protonix 20MG Tablet] 20 mg PO BID 30 Days #60 tab Follow up with: JUSTIN BROWNE MD [Primary Care Provider, [facility]]
--- NOTE | 2025-07-15 11:50 | XRAY ---
CLINICAL HISTORY: dyspnea COMPARISON: No priors for comparison. TECHNIQUE: Contiguous axial CT images of the chest were acquired without the administration of intravenous contrast. Coronal and sagittal reconstructions were obtained. One of the following dose reduction techniques was utilized for this exam: automated exposure control, adjustment of the mA and/or kV according to patient size, or use of iterative reconstruction. FINDINGS: Lungs: The right upper lung lobe is almost completely replaced by confluent alveolar consolidation showing internal air bronchogram, which is likely inflammatory consolidative pneumonia. A few calcified pulmonary nodules are noted in the right upper and middle, as well as the left upper lung lobes, likely representing calcified granulomas. Another approximately 5 mm noncalcified solid pulmonary nodule is seen at images 35/70 axial images. The right lower lung lobe superior segment demonstrates a fissural-based small consolidative area and ground-glass attenuation. There are a few lingular atelectatic changes. Mild right pleural effusion is present with underlying relaxation collapse. Mediastinum: The mediastinum is normal in size and contour. Bilateral hilar calcified lymph nodes are likely old granulomatous nodes, which are more sizable on the right side. The heart size is within normal limits. Hilar Structures: The hilar structures appear normal without enlargement or abnormality. No atheromatous calcifications of the aorta or coronary arteries. Trachea and Main Bronchi: The trachea and main bronchi are patent without evidence of obstruction or abnormality. Chest Wall: The chest wall is unremarkable with no evidence of soft tissue or bony abnormalities. Upper Abdomen: The visualized portions of the liver and spleen show scattered calcified granulomas. Perinephric fat stranding is noted. Bones: The visualized osseous structures show no evidence of fracture or lytic or sclerotic lesions. Thoracic spondylosis with multilevel Schmorl's nodes and irregularities of the opposing vertebral endplates is seen. IMPRESSION: 1. The right upper lung lobe is almost completely replaced by confluent alveolar consolidation showing internal air bronchogram, which is likely an inflammatory/pneumonic patch. A smaller right lower lobe superior segment consolidative area is also present, which is likely inflammatory as well, and clinical correlation is recommended. 2. A few calcified pulmonary nodules are noted in the right upper and middle, as well as the left upper lung lobes, likely representing calcified granulomas. 3. Another approximately 5 mm noncalcified solid pulmonary nodule is seen at images 35/70 axial images. No follow-up or optional CT at 12 months is recommended according to risk status in accordance with Fleischner criteria. 4. Mild right pleural effusion with underlying relaxation collapse. Electronically Signed by: Mele Perez MD. (07/15/2025 11:49:01 EDT)
[2025-07-15 12:15] VITALS: BP 113/59
[2025-07-15 12:40] VITALS: PULSE 90; O2SAT 92
[2025-07-15 13:43] VITALS: TEMP 99.3
[2025-07-15] MEDS ORDERED: VANCOMYCIN 1 GRAM/200 ML BAG 1 GM/200 ML PIGGYBACK IV SCH (22:00)
[2025-07-15] MEDS ORDERED: Flomax 0.4 MG PO SCH (22:00)
[2025-07-15] MEDS ORDERED: ZOCOR 20MG PO SCH (22:00)
== END 2025-07-15 16:30 | disposition home or self-care (01) ==
LOC: ED 09:21 → MED SURG 18:02
PROVIDERS: ADMIT Internal Medicine; ATTEND Internal Medicine
DX: A41.9 Sepsis, unspecified organism (principal); I12.9 Hypertensive chronic kidney disease with stage 1 through stage 4 chronic kidney disease, or unspecified chronic kidney disease; N17.9 Acute kidney failure, unspecified; N18.9 Chronic kidney disease, unspecified; N39.0 Urinary tract infection, site not specified; J18.9 Pneumonia, unspecified organism; J96.01 Acute respiratory failure with hypoxia; E87.6 Hypokalemia; R79.89 Other specified abnormal findings of blood chemistry; E87.1 Hypo-osmolality and hyponatremia; E78.5 Hyperlipidemia, unspecified; N40.0 Benign prostatic hyperplasia without lower urinary tract symptoms; K21.9 Gastro-esophageal reflux disease without esophagitis; R53.1 Weakness; R50.9 Fever, unspecified; Z79.899 Other long term (current) drug therapy